=== PATIENT | female | born 1960 | race Caucasian/White ===

== ENCOUNTER → 2021-09-24 16:00 | Outpatient (CLI) | payer MEDICAID, SELFPAY ==
[2021-09-24 15:17] LABS: Basophils # 0.1 K/mm3 (0-0.2); Basophils % 0.7 % (0.1-2.0); Eosinophils # 0.1 K/mm3 (0.0-0.4); Eosinophils % 1.5 % (0.1-12.0); Hematocrit 45.8 % (37.0-47.0); Hemoglobin 14.6 g/dL (12.2-16.2); Lymphocytes # 2.6 K/mm3 (0.7-4.5); Mean Corpuscular HGB Conc 31.9 g/dL (31.8-35.4); Mean Corpuscular Hemoglobin 30.2 pg (27.0-31.2); Mean Corpuscular Volume 94.5 fl (81-99); Mean Platelet Volume 8.4 fl (7.4-10.4); Monocytes # 0.3 K/mm3 (0.1-1.0); Monocytes % 4.4 % (1.7-9.3); Neutrophils # 4.3 K/mm3 (1.8-7.8); Neutrophils % 58.5 % (37.0-80.0); Platelet Count 340 K/mm3 (142-424); Red Blood Count 4.85 M/mm3 (4.20-5.40); Red Cell Distribution Width 13.6 % (11.5-17.5); White Blood Count 7.3 K/mm3 (4.8-10.8)
[2021-09-24 16:22] LABS: Chloride 101 mmol/L (98-107); Potassium 4.2 mmoL/L (3.5-5.1); Sodium 140 mmol/L (136-145)
[2021-09-24 16:24] LABS: Alanine Aminotransferase 15 U/L (12-78); Aspartate Amino Transferase 23 U/L (14-36); Blood Urea Nitrogen 8 mg/dl (7-17); Estimated Glomerular Filt Rate 86 ml/min (>60); GFR (African American) 104 ML/MIN (>60)
[2021-09-24 16:25] LABS: Albumin Level 4.4 g/dl (3.5-5.0); Albumin/Globulin Ratio 1.5 (1.1-1.8); Alkaline Phosphatase 91 U/L (38-126); Anion Gap 10.2 mEq/L (5-15); Bilirubin,Total 0.5 mg/dl (0.2-1.3); Calcium 8.6 mg/dl (8.4-10.2); Carbon Dioxide 33 mmol/L (22.0-30.0); Chol/HDL Ratio 4.3 (1-3.5); Cholesterol 210 mg/dl (140-200); Glucose 89 mg/dl (74-100); HDL Cholesterol 49 mg/dl (40-60); Total Protein,Serum 7.4 g/dl (6.3-8.2); Triglycerides 226 mg/dl (30-150); VLDL Cholesterol 45 mg/dL (0-40)
[2021-09-24 16:36] LABS: Direct LDL Cholesterol 126.89 mg/dL (100-129)
[2021-09-24 16:44] LABS: T4 (Thyroxine) 9.9 ug/dl (5.53-11.0)
== END ==
PROVIDERS: Visit Provider Emergency Medicine
DX: I10 Essential (primary) hypertension (principal); E78.5 Hyperlipidemia, unspecified; E55.9 Vitamin D deficiency, unspecified; Z79.899 Other long term (current) drug therapy
CPT/HCPCS: 80053; 80061; 82306; 84436; 84443; 85025

== ENCOUNTER → 2022-03-22 15:36 | Outpatient (CLI) | payer MEDICAID, SELFPAY ==
[2022-03-22 16:56] LABS: Free T4 (Free Thyroxine) 1.37 ng/dl (0.78-2.19)
[2022-03-22 17:35] LABS: Thyroid Stimulating Hormone 3.14 uIU/mL (0.465-4.68)
== END ==
PROVIDERS: PCP Emergency Medicine; Visit Provider Emergency Medicine
DX: E03.9 Hypothyroidism, unspecified (principal)
CPT/HCPCS: 84439; 84443

== ENCOUNTER 2022-07-12 07:10 | Day surgery (SDC) | payer MEDICAID, SELFPAY ==
[2022-07-12] VITALS (9 sets, daily range): BP systolic 118–167; BP diastolic 64–83; PULSE 73–86; RESP 14–20; TEMP 36.4–37; O2SAT 91–98
== END 2022-07-12 09:08 | disposition home or self-care (01) ==
PROVIDERS: PCP Emergency Medicine; Visit Provider Ophthalmology
PROC: (CPT 66984; principal; 2022-07-12 09:00)
DX: H25.811 Combined forms of age-related cataract, right eye (principal); Z79.899 Other long term (current) drug therapy
CPT/HCPCS: 66984; V2632

== ENCOUNTER 2022-07-26 08:48 | Day surgery (SDC) | payer MEDICAID, SELFPAY ==
[2022-07-26] VITALS (8 sets, daily range): BP systolic 116–147; BP diastolic 59–95; PULSE 69–82; RESP 14–18; TEMP 36.1–36.3; O2SAT 90–96; BMI 30.1
== END 2022-07-26 10:10 | disposition home or self-care (01) ==
PROVIDERS: PCP Emergency Medicine; Visit Provider Ophthalmology
PROC: (CPT 66984; principal; 2022-07-26 11:00)
DX: H26.9 Unspecified cataract (principal); Z79.899 Other long term (current) drug therapy
CPT/HCPCS: 66984; V2632

== ENCOUNTER → 2022-08-30 10:00 | Outpatient (CLI) | payer MEDICAID, SELFPAY ==
[2022-08-30 14:57] LABS: Amphetamine/Metha Screen,Urine Negative ng/ml (<1000); Barbiturates Screen,Urine Negative ng/ml (<200)
[2022-08-30 14:58] LABS: Benzodiazepines Screen,Urine Negative ng/ml (<200)
[2022-08-30 14:59] LABS: Cannabinoid Screen,Urine Negative ng/ml (<50); Cocaine Screen,Urine Negative ng/ml (<300)
[2022-08-30 15:00] LABS: Methadone Screen,Urine Negative ng/ml (<300); Opiate Screen,Urine Negative ng/ml (<300)
[2022-08-30 15:01] LABS: Phencyclidine Screen,Urine Negative ng/ml (<25)
== END ==
PROVIDERS: PCP Emergency Medicine; Visit Provider Emergency Medicine
DX: Z79.899 Other long term (current) drug therapy (principal)
CPT/HCPCS: 80305

== ENCOUNTER 2022-11-25 10:48 | Inpatient (IN) | payer MEDICAID, SELFPAY ==
[2022-11-25] VITALS (10 sets, daily range): BP systolic 136–178; BP diastolic 66–101; PULSE 55–90; RESP 17–24; TEMP 36.4–36.7; O2SAT 91–98; BMI 31.3
--- NOTE | 2022-11-25 11:13 | HMH.EDGENADL ---
Discharge Plan Disposition Patient Disposition: Admitted Prescriptions Prescriptions: No Action buprenorphine-naloxone 8-2 mg tablet, sublingual 1 tab SUBLINGUAL DAILY nicotine 21 mg/24 hr patch 24 hour 1 patch transdermal DAILY Qty: 28 2RF budesonide-formoterol [Symbicort] 80-4.5 mcg/actuation HFA aerosol inhaler 1 inh inhalation BID Qty: 10.2 2RF lidocaine 5 % adhesive patch,medicated 1 patch topical DAILY Qty: 30 0RF Rx Instructions: leave on most painful area for up to 12 hrs diclofenac sodium 1 % gel 2 g topical QID Qty: 100 0RF Rx Instructions: apply to single elbow, wrist or hand; for hand includes palm/fingers/back of hand hydroxyzine pamoate 25 mg capsule 25 mg PO TID Qty: 90 2RF gabapentin 600 mg tablet 600 mg PO TID Qty: 90 2RF albuterol sulfate [Ventolin HFA] 90 mcg/actuation HFA aerosol inhaler See Rx Instructions .ROUTE .COMPLEX Qty: 18 1RF Dose Instruction: INHALE TWO PUFFS EVERY 6 HOURS NEEDED SHORTNESS OF BREATH Rx Instructions: INHALE TWO PUFFS EVERY 6 HOURS NEEDED SHORTNESS OF BREATH ipratropium-albuterol 0.5 mg-3 mg(2.5 mg base)/3 mL solution for nebulization See Rx Instructions .ROUTE .COMPLEX Qty: 180 1RF Dose Instruction: USE 3 mL VIA NEBULIZER every 4-6 hours As Needed for shortness of breath or wheezing Rx Instructions: USE 3 mL VIA NEBULIZER every 4-6 hours As Needed for shortness of breath or wheezing Referrals Follow up/Referrals: Momo Galarza MD [Primary Care Provider] - See instructions Clinical Impressions Clinical Impression: Hypoxemia, Bilateral lower extremity edema, Chronic dyspnea Instructions Patient Instructions: DI for Skin Abscess Discharge ED Provider: Deya Castaneda General Adult HPI General Chief complaint: Skin/Abscess/Foreign Body Stated complaint: neck pain, soa, low O2, bilateral feet swelling Time Seen by Provider: 11/25/22 11:14 History of Present Illness HPI narrative: Patient is a 62-year-old female presenting with worsening dyspnea. This has been going on for several months but worsening over the last month no inciting event that she is aware of. No chest pain associated with this no cough fevers or chills. She states she just has increasing orthopnea PND and lower extremity edema. She is followed by Dr. Galarza and states that he has been trying to arrange outpatient oxygen for her has been unable to get that done quickly. She presents to the emergency department because her dyspnea has gotten to the point of activities of daily living. Related Data Home Medications Medication Instructions Recorded Confirmed buprenorphine 8 mg-naloxone 2 mg 1 tab sublingual DAILY drug 09/24/21 11/23/22 sublingual tablet addiction Previous Rx's Medication Instructions Recorded budesonide-formoterol HFA 80 1 inh inhalation BID COPD #10.2 08/30/22 mcg-4.5 mcg/actuation aerosol grams inhaler (Symbicort) nicotine 21 mg/24 hr daily 1 patch transdermal DAILY #28 ea 08/30/22 transdermal patch albuterol sulfate 90 mcg/actuation See Rx Instructions .Route 11/14/22 aerosol inhaler (Ventolin HFA) .COMPLEX #18 grams ipratropium 0.5 mg-albuterol 3 mg See Rx Instructions .Route 11/14/22 (2.5 mg base)/3 mL nebulization .COMPLEX #180 mL soln diclofenac sodium 1 % topical gel 2 g topical QID #100 grams 11/23/22 gabapentin 600 mg tablet 600 mg PO TID #90 tabs 11/23/22 hydroxyzine pamoate 25 mg capsule 25 mg PO TID Anxiety #90 caps 11/23/22 lidocaine 5 % topical patch 1 patch topical DAILY #30 ea 11/23/22 Allergies Allergy/AdvReac Type Severity Reaction Status Date / Time No Known Allergies Allergy Verified 11/23/22 13:33 [facility] Disclaimer: The information contained in this section may have been updated after the patient was seen, as this information can be updated by other users. Medical History Aller
--- NOTE | 2022-11-25 11:15 | PC.NURSE ---
DWIGHT DAUGHERTY at
--- NOTE | 2022-11-25 11:22 | XR_ITS ---
FINAL REPORT CLINICAL HISTORY: dyspnea COMPARISON: None FINDINGS: SINGLE VIEW CHEST The heart size is enlarged. The mediastinum is within normal limits. Mild bibasilar opacities are present, favor atelectasis over pneumonia.. There is no evidence of pneumothorax. The bony thorax is intact. IMPRESSION: Bronchial wall thickening consistent with bronchitis. Mild bibasilar opacities noted, favor atelectasis over pneumonia.. Reviewed, Interpreted and Dictated by Yovani Dey III, MD Transcribed by Alma Forrest Authenticated and [facility]
--- NOTE | 2022-11-25 11:35 | ECG_ITS ---
APPROVED REPORT Exam: Resting ECG HR:73 bpm ECG Measurements Heart Rate 73 AXES GA 151 P 64 QRSd 85 QRS 75 QT 379 T 64 QTc 406 Conclusion SINUS RHYTHM NORMAL ECG UNCONFIRMED REPORT Electronically signed by : Jamison Kraus MD 11/26/2022 07:14:10
--- NOTE | 2022-11-25 11:39 | PC.NURSE ---
rad at BS
[2022-11-25 12:06] LABS: Basophils # 0.1 K/mm3 (0-0.2); Basophils % 0.7 % (0.1-2.0); Chloride 95 mmol/L (98-107); Eosinophils # 0.2 K/mm3 (0.0-0.4); Eosinophils % 3.1 % (0.1-12.0); Hematocrit 44.3 % (37.0-47.0); Hemoglobin 14.5 g/dL (12.2-16.2); Lymphocytes # 2.4 K/mm3 (0.7-4.5); Lymphocytes % 30.7 % (10-50); Mean Corpuscular HGB Conc 32.6 g/dL (31.8-35.4); Mean Corpuscular Hemoglobin 30.3 pg (27.0-31.2); Mean Corpuscular Volume 92.9 fl (81-99); Mean Platelet Volume 7.6 fl (7.4-10.4); Monocytes # 0.4 K/mm3 (0.1-1.0); Monocytes % 4.7 % (1.7-9.3); Neutrophils # 4.7 K/mm3 (1.8-7.8); Neutrophils % 60.8 % (37.0-80.0); Platelet Count 278 K/mm3 (142-424); Potassium 3.8 mmoL/L (3.5-5.1); Red Blood Count 4.77 M/mm3 (4.20-5.40); Red Cell Distribution Width 14.7 % (11.5-17.5); Sodium 140 mmol/L (136-145); White Blood Count 7.8 K/mm3 (4.8-10.8)
[2022-11-25 12:09] LABS: Alanine Aminotransferase 22 U/L (12-78); Albumin Level 4.1 g/dl (3.5-5.0); Albumin/Globulin Ratio 1.2 (1.1-1.8); Alkaline Phosphatase 66 U/L (38-126); Anion Gap 8.8 mEq/L (5-15); Aspartate Amino Transferase 34 U/L (14-36); Bilirubin,Total 0.4 mg/dl (0.2-1.3); Blood Urea Nitrogen 10 mg/dl (7-17); Carbon Dioxide 40 mmol/L (22.0-30.0); Creatinine Clearance Estimated 95 mL/min (50-200); Estimated Glomerular Filt Rate 73 ml/min (>60); GFR (African American) 89 ML/MIN (>60); Globulin 3.3 g/dL (1.3-3.2); Total Protein,Serum 7.4 g/dl (6.3-8.2)
[2022-11-25 12:10] LABS: Glucose 96 mg/dl (74-100)
[2022-11-25 12:20] LABS: NT Pro Brain Natriuretic Pep. 154 pg/mL (0-125)
[2022-11-25 12:23] LABS: Troponin I < 0.01 ng/ml (0.00-0.034)
--- NOTE | 2022-11-25 12:37 | PC.NURSE ---
SaO2 to mid 80s, pt reported to staff when asked about home oxygen. Pt reports does not wear home oxygen, however pt reports she is supposed to wear home O2 but they have not delivered it to her yet. Pt placed on 2L per NC
[2022-11-25 12:49] LABS: D-Dimer 0.75 ug/mL (0.0-0.5)
--- NOTE | 2022-11-25 13:13 | PC.NURSE ---
waiting cotton opener back from hospitalist
[2022-11-25 13:18] LABS: Coronavirus 19, PCR Not Detected (NotDetected); Influenza A, PCR Not Detected (NotDetected); Influenza B, PCR Not Detected (NotDetected)
--- NOTE | 2022-11-25 13:40 | PC.NURSE ---
rounded on pt no complaints at this time, unhooked so pt could go to rest room, tap ellison at bedside
--- NOTE | 2022-11-25 13:44 | PC.NURSE ---
Hospitalist at bedside
--- NOTE | 2022-11-25 13:47 | PC.NURSE ---
care management notified of admission
--- NOTE | 2022-11-25 14:01 | EXP.HP ---
History of Present Illness *Admission Date: 11/25/22 *Reason for visit:: Shortness of breath *History of present illness: 62-year-old female presents emergency department with significantly worsening symptoms of multiple days including shortness of breath, orthopnea, mild lower extremity edema. This has been going on for several months but worsening over the last month no inciting event that she is aware of. Patient has been evaluated outpatient basis for new oxygen requirement, she is requiring 2 L of oxygen nasal cannula in the emergency department. Patient states that she has been having progressive symptoms and dyspnea with exertion. Smokes, drinks pop, denies alcohol or other substances. Denies any fevers, chills, cough. ?She is followed by Dr. Galarza and states that he has been trying to arrange outpatient oxygen for her has been unable to get that done quickly. She presents to the emergency department because her dyspnea has gotten to the point of activities of daily living. Currently medications include Suboxone, gabapentin. She does not have any known history of hypertension, hyperlipidemia, kidney issues or other medical conditions at this time. Patient is currently comfortable in the ER has no concerns or complaints at this [facility] Disclaimer: The information contained in this section may have been updated after the patient was seen, as this information can be updated by other users. Medical History Allergies Anxiety Arthritis Chronic cough COPD (chronic obstructive pulmonary disease) GERD (gastroesophageal reflux disease) History of cataract History of narcotic addiction HTN (hypertension) Surgical History History of cataract surgery S/P bilateral breast lumpectomy S/P carpal tunnel release Family History Mother Diabetes Sister Diabetes Mother Hypertension Sister Hypertension Mother Coronary artery disease Sister Breast cancer Social History Smoking Status: Current every day smoker alcohol intake: never substance use type: former substance user, sedatives and painkillers current occupational status: unemployed Travel in the last 8 weeks: None caffeine: Yes Review of Systems Review of Systems Review of systems:: pertinent systems reviewed and negative unless documented below Constitutional Constitutional: Reports system reviewed and no additional complaints, except as documented and Denies chills *Cardiovascular Cardiovascular: Denies chest pain at rest, Denies chest pain with activity, Denies claudication, Reports dyspnea, Reports dyspnea on exertion, Denies irregular heart rhythm, Denies lightheadedness, Reports orthopnea and Denies palpitations *Respiratory Respiratory: Reports dyspnea and Reports dyspnea on exertion *Gastrointestinal Gastrointestinal: Reports system reviewed and no additional complaints, except as documented Endocrine Endocrine: Denies palpitations Meds Home Medications and Allergies Home Medications Medication Instructions Recorded Confirmed Type buprenorphine 8 mg-naloxone 2 mg 1 tab sublingual DAILY drug 09/24/21 11/23/22 History sublingual tablet addiction budesonide-formoterol HFA 80 1 inh inhalation BID COPD #10.2 08/30/22 11/23/22 Rx mcg-4.5 mcg/actuation aerosol grams inhaler (Symbicort) nicotine 21 mg/24 hr daily 1 patch transdermal DAILY #28 ea 08/30/22 11/23/22 Rx transdermal patch albuterol sulfate 90 mcg/actuation See Rx Instructions .Route 11/14/22 11/23/22 Rx aerosol inhaler (Ventolin HFA) .COMPLEX #18 grams ipratropium 0.5 mg-albuterol 3 mg See Rx Instructions .Route 11/14/22 11/23/22 Rx (2.5 mg base)/3 mL nebulization .COMPLEX #180 mL soln diclofenac sodium 1 % topical gel 2 g topical QID #100 grams 11/01
--- NOTE | 2022-11-25 14:22 | PC.NURSE ---
Report provided to SERGO Dewey. Pt using restroom at this time.
--- NOTE | 2022-11-25 14:23 | HMH.PHAINT1 ---
Pharmacy Intervention Comments: MEDICATION RECONCILIATION COMPLETED ON PATIENT USING EXTERNAL FILL HISTORY FROM PHARMACY AND LIST FROM PCP OFFICE. -VINI HONEYCUTT, RICKYD
[2022-11-25 15:11] LABS: Troponin I < 0.01 ng/ml (0.00-0.034)
--- NOTE | 2022-11-25 15:17 | EXP.CARD.CON ---
History of Present Illness History of Present Illness Consult date: 11/25/22 Requesting physician: Klaudia Sibley Consult reason: shortness of breath Chief complaint: SOB, edema History of present illness: This is a 62-year-old white female who presented to the emergency department with worsening shortness of breath, orthopnea and lower extremity edema for the last several days. She states her symptoms started approximately 3 weeks ago but significantly worsened over the last 3 days. The patient states that she was being worked up for oxygen by her primary care provider but her symptoms continue to worsen and that is why she came to the emergency department. She denies any chest pain or pressure. She denies any fever, chills, nausea, vomiting, diarrhea. The patient states that her symptoms are worse at night when she tries to lay down. She denies any hypertension or hyperlipidemia. She denies any history of IA or coronary artery disease. She does report that her sister had an IA and her mother had an enlarged heart. She states that her shortness of breath is so bad at this point that any exertion even minimal exertion around the home and activities of daily living were becoming too hard for her to complete. She states that her symptoms do improve with rest. [facility] Disclaimer: The information contained in this section may have been updated after the patient was seen, as this information can be updated by other users. Medical History Allergies Anxiety Arthritis Chronic cough COPD (chronic obstructive pulmonary disease) GERD (gastroesophageal reflux disease) History of cataract History of narcotic addiction HTN (hypertension) Surgical History History of cataract surgery S/P bilateral breast lumpectomy S/P carpal tunnel release Family History Mother Diabetes Sister Diabetes Mother Hypertension Sister Hypertension Mother Coronary artery disease Sister Breast cancer Social History Smoking Status: Current every day smoker alcohol intake: never substance use type: former substance user, sedatives and painkillers current occupational status: unemployed Travel in the last 8 weeks: None caffeine: Yes Review of Systems Review of Systems Review of systems:: pertinent systems reviewed and negative unless documented below Constitutional Constitutional: Reports system reviewed and no additional complaints, except as documented and Reports fatigue Eyes Eyes: Reports system reviewed and no additional complaints, except as documented ENT Ears, Nose, Mouth, and Throat: Reports system reviewed and no additional complaints, except as documented *Cardiovascular Cardiovascular: Reports system reviewed and no additional complaints, except as documented, Denies chest pain, Reports dyspnea, Reports dyspnea on exertion, Reports edema and Reports leg edema *Respiratory Respiratory: Reports system reviewed and no additional complaints, except as documented, Reports dyspnea and Reports dyspnea on exertion *Gastrointestinal Gastrointestinal: Reports system reviewed and no additional complaints, except as documented *Genitourinary Genitourinary: Reports system reviewed and no additional complaints, except as documented *Musculoskeletal Musculoskeletal: Reports system reviewed and no additional complaints, except as documented Integumentary/Breasts Skin/Breast: Reports system reviewed and no additional complaints, except as documented *Neurologic Neurologic: Reports system reviewed and no additional complaints, except as documented Psychiatric Psychiatric: Reports system reviewed and no additional complaints, except as documented Endocrine Endocrine: Reports system reviewed and no additional complaints, except as doc
[2022-11-25 15:22] LABS: Hemoglobin A1C 5.6 % (4.0-6.0)
[2022-11-25 15:53] LABS: Thyroid Stimulating Hormone 4.09 uIU/mL (0.465-4.68)
--- NOTE | 2022-11-25 16:14 | PC.NURSE ---
SRNA Note: nurse made aware of high blood pressure at 1600 vitals. Marta Villegas, SRNA
[2022-11-25 16:51] LABS: POC Glucose,Bedside 112 (70-110)
--- NOTE | 2022-11-25 17:44 | PC.NURSE ---
A&OX4. TOLERATING 2LNC WELL. PT UP INDEPENDENTLY IN ROOM. HAS C/O BACK PAIN X1, TYLENOL GIVEN PER AUG. HOME MEDICATIONS REORDERED PER PT REQUEST. MEASURING OUTPUT. NO OTHER C/O NOTED THUS FAR. VSS. +2 PITTING EDEMA NOTED TO BLE.
[2022-11-25 18:50] LABS: Troponin I < 0.01 ng/ml (0.00-0.034)
[2022-11-26] VITALS (11 sets, daily range): BP systolic 120–142; BP diastolic 63–77; PULSE 50–66; RESP 16–19; TEMP 36.4–36.7; O2SAT 90–96; BMI 31.4
--- NOTE | 2022-11-26 03:20 | PC.NURSE ---
Patient requesting Diclofenac ointment/cream which per MAR states it is her own medication. Patient states the only medication she brought with her was her ALbuterol inhaler. Patient took PRN meds Zofran, Tylenol & Hydroxyzine. Has resting most of the night in recliner. noted. LCTA, continues to have 2+pitting edema in BLE. No s/s of acute distress
[2022-11-26 09:18] LABS: Basophils % 0.5 % (0.1-2.0); Chloride 91 mmol/L (98-107); Eosinophils # 0.2 K/mm3 (0.0-0.4); Eosinophils % 2.1 % (0.1-12.0); Hematocrit 50.7 % (37.0-47.0); Hemoglobin 15.5 g/dL (12.2-16.2); Lymphocytes % 26.5 % (10-50); Mean Corpuscular HGB Conc 30.7 g/dL (31.8-35.4); Mean Corpuscular Hemoglobin 29.3 pg (27.0-31.2); Mean Corpuscular Volume 95.6 fl (81-99); Mean Platelet Volume 7.8 fl (7.4-10.4); Monocytes # 0.4 K/mm3 (0.1-1.0); Monocytes % 5.9 % (1.7-9.3); Neutrophils # 4.8 K/mm3 (1.8-7.8); Neutrophils % 64.9 % (37.0-80.0); Platelet Count 284 K/mm3 (142-424); Potassium 3.9 mmoL/L (3.5-5.1); Red Cell Distribution Width 14.6 % (11.5-17.5); Sodium 140 mmol/L (136-145); White Blood Count 7.4 K/mm3 (4.8-10.8)
[2022-11-26 09:20] LABS: Blood Urea Nitrogen 13 mg/dl (7-17); Creatinine Clearance Estimated 76 mL/min (50-200); Estimated Glomerular Filt Rate 57 ml/min (>60); GFR (African American) 68 ML/MIN (>60)
[2022-11-26 09:21] LABS: Alanine Aminotransferase 21 U/L (12-78); Albumin Level 4.1 g/dl (3.5-5.0); Albumin/Globulin Ratio 1.2 (1.1-1.8); Alkaline Phosphatase 64 U/L (38-126); Aspartate Amino Transferase 28 U/L (14-36); Bilirubin,Total 0.4 mg/dl (0.2-1.3); Cholesterol 142 mg/dl (140-200); Globulin 3.5 g/dL (1.3-3.2); Phosphorous 4.3 mg/dl (2.5-4.5); Total Protein,Serum 7.6 g/dl (6.3-8.2); Triglycerides 177 mg/dl (30-150); VLDL Cholesterol 35 mg/dL (0-40)
[2022-11-26 09:22] LABS: Chol/HDL Ratio 3.3 (1-3.5); Glucose 103 mg/dl (74-100); HDL Cholesterol 43 mg/dl (40-60); Magnesium 1.8 mg/dl (1.6-2.3)
[2022-11-26 09:29] LABS: Anion Gap 11.9 mEq/L (5-15); Carbon Dioxide 41 mmol/L (22.0-30.0)
[2022-11-26 09:32] LABS: Direct LDL Cholesterol 81.25 mg/dL (100-129)
--- NOTE | 2022-11-26 09:40 | EXP.ACUTE.PN ---
Subjective *Date: 11/26/22 *Time: 09:40 Interval history: feeling better, diuresing, not back to baseline yet Medical Exam Vital signs and Labs for Last 24 Hours: Vital Signs Temp Pulse Pulse Resp BP BP Pulse Ox 11/26/22 07:19 97.9 F 62 18 142/77 H 94 L 11/26/22 04:00 60 11/26/22 04:00 98.1 F 56 L 17 130/68 96 11/25/22 20:00 93 L 11/26/22 00:00 50 L 11/25/22 23:59 98.1 F 55 L 17 136/72 93 L 11/25/22 20:00 60 11/25/22 20:00 97.5 F L 57 L 18 136/74 94 L 11/25/22 16:00 90 11/25/22 14:41 90 11/25/22 16:00 98.1 F 70 20 157/88 H 96 11/25/22 14:43 97.8 F 89 22 151/89 H 95 11/25/22 14:26 97.7 F 80 24 168/101 H 11/25/22 13:00 80 24 168/101 H 98 11/25/22 12:30 68 18 152/80 H 96 11/25/22 11:00 80 153/66 H 91 L 11/25/22 10:50 97.7 F 86 20 178/82 H 93 L Intake and Output 11/25/22 11/26/22 11/26/22 23:59 07:59 15:59 Intake Total 240 / 240 240 / 240 Output Total 1200 / 1200 Balance -960 / -960 240 / 240 Intake: Intake, Oral Amount 240 / 240 240 / 240 Output: Output, Urine Amount 1200 / 1200 Other: Number of Unmeasured Voids 2 Weight 80.286 kg Patient Weight 11/26/22 23:59 Weight 80.286 kg Laboratory Results - last 24 hr 11/25/22 11:50: WBC 7.8, RBC 4.77, Hgb 14.5, Hct 44.3, MCV 92.9, MCH 30.3, MCHC 32.6, RDW 14.7, Plt Count 278, MPV 7.6, Neut % (Auto) 60.8, Lymph % (Auto) 30.7, [place] % (Auto) 4.7, Eos % (Auto) 3.1, Baso % (Auto) 0.7, Neut # (Auto) 4.7, Lymph # (Auto) 2.4, [place] # (Auto) 0.4, Eos # (Auto) 0.2, Baso # (Auto) 0.1 11/25/22 11:50: Sodium 140, Potassium 3.8, Chloride 95 L, Carbon Dioxide 40 H, Anion Gap 8.8, BUN 10, Creatinine 0.80, Estimated Creat Clear 95, Estimated GFR 73, Est GFR ( Amer) 89, Glucose 96, Calcium 9.0, Total Bilirubin 0.4, AST 34, ALT 22, Alkaline Phosphatase 66, Troponin I < 0.01, Total Protein 7.4, Albumin 4.1, Globulin 3.3 H, Albumin/Globulin Ratio 1.2, TSH 4.10 11/25/22 11:50: D-Dimer 0.75 H 11/25/22 11:50: NT-Pro-B Natriuret Pep 154 H 11/25/22 11:50: Hemoglobin A1c 5.6 11/25/22 11:50: TSH 4.09 11/25/22 13:13: SARS-CoV-2 (PCR) Not detected, Influenza A Untype (PCR) Not detected, Influenza Type B (PCR) Not detected 11/25/22 14:40: Troponin I < 0.01 11/25/22 16:44: POC Glucose 112 H 11/25/22 18:05: Troponin I < 0.01 11/26/22 09:00: WBC 7.4, RBC 5.30, Hgb 15.5, Hct 50.7 H, MCV 95.6, MCH 29.3, MCHC 30.7 L, RDW 14.6, Plt Count 284, MPV 7.8, Neut % (Auto) 64.9, Lymph % (Auto) 26.5, [place] % (Auto) 5.9, Eos % (Auto) 2.1, Baso % (Auto) 0.5, Neut # (Auto) 4.8, Lymph # (Auto) 2.0, [place] # (Auto) 0.4, Eos # (Auto) 0.2, Baso # (Auto) 0.0 11/26/22 09:00: Sodium 140, Potassium 3.9, Chloride 91 L, Carbon Dioxide 41 H*, Anion Gap 11.9, BUN 13 D, Creatinine 1.00 D, Estimated Creat Clear 76, Estimated GFR 57 L, Est GFR ( Amer) 68 D, Glucose 103 H, Calcium 9.0, Phosphorus 4.3, Magnesium 1.8, Total Bilirubin 0.4, AST 28, ALT 21, Alkaline Phosphatase 64, Total Protein 7.6, Albumin 4.1, Globulin 3.5 H, Albumin/Globulin Ratio 1.2, Triglycerides 177 H, Cholesterol 142, LDL Cholesterol Direct 81.25 L, VLDL Cholesterol 35, HDL Cholesterol 43, Cholesterol/HDL Ratio 3.3 I & O for Labs for Last 24 Hours: Intake & Output 11/23/22 11/24/22 11/25/22 11/26/22 23:59 23:59 23:59 23:59 Intake Total 240 / 240 240 / 240 Output Total 1200 / 1200 Balance -960 / -960 240 / 240 Weight 80.286 kg 80.286 kg Constitutional: Present no acute distress Respiratory: Present wheezes and normal respiratory effort Cardiac: Present Reg Rate and Rhythm GI: Present normal bowel sounds; Absent tenderness Extremities: Present normal inspection and full ROM Skin: Present intact; Absent erythema Neuro: Present Grossly Intact and moves all extremities Assessment and Plan *Assessment and plan (1) Chronic dyspnea: Status: Acute Category: Medical C
--- NOTE | 2022-11-26 18:44 | PC.NURSE ---
NO ACUTE CHANGES FROPM PREVIOUS SHIFT. PT STATES SHES FELT BETTER TODAY. CB WITHIN REACH. NO CONCERNS AT THIS TIME.
--- NOTE | 2022-11-26 22:30 | PC.NURSE ---
RESTING IN BED AT THIS TIME. NO FURTHER C/O NAUSEA. 02 2LNC IN USE. NO C/O PAIN, SOA, OR DISCOMFORT. REFUSES FINGER STICKS.
[2022-11-27] VITALS (7 sets, daily range): BP systolic 124–141; BP diastolic 60–75; PULSE 50–61; RESP 17–20; TEMP 36.7–36.8; O2SAT 81–98; BMI 31.9
--- NOTE | 2022-11-27 10:58 | EXP.DC.SUM ---
General Admission date:: 11/25/22 Discharge date: 11/27/22 HPI HPI HPI: 62-year-old female presents emergency department with significantly worsening symptoms of multiple days including shortness of breath, orthopnea, mild lower extremity edema. This has been going on for several months but worsening over the last month no inciting event that she is aware of. Patient has been evaluated outpatient basis for new oxygen requirement, she is requiring 2 L of oxygen nasal cannula in the emergency department. Patient states that she has been having progressive symptoms and dyspnea with exertion. Smokes, drinks pop, denies alcohol or other substances. Denies any fevers, chills, cough. ?She is followed by Dr. Galarza and states that he has been trying to arrange outpatient oxygen for her has been unable to get that done quickly. She presents to the emergency department because her dyspnea has gotten to the point of activities of daily living. Currently medications include Suboxone, gabapentin. She does not have any known history of hypertension, hyperlipidemia, kidney issues or other medical conditions at this time. Patient is currently comfortable in the ER has no concerns or complaints at this Hospital Course Hospital Course Hospital Course: Patient was admitted for CHF, she was given IV diuretics with improvement of her symptoms. No infectious symptoms. Good urinary output advised and counseled on appropriate diet and reduce soda intake. TTE ordered, results pending. Follow-up with cardiology and primary care physician next week for further management of cardiac meds and echo results. Patient noted to have hypoxemia O2 <88 % on room air at rest, will send home with oxygen. Consistent with prior evaluation outpatient, she has oxygen ordered from other provider but has not received it yet. we will send her home with some here Exam Data for Last 24 hours Vital signs and Labs for Last 24 Hours: Temp Pulse Resp BP Pulse Ox FiO2 98.0 F 60 20 124/63 81 L 28 11/27/22 07:28 11/27/22 08:00 11/27/22 07:28 11/27/22 07:28 11/27/22 10:45 11/26/22 18:40 I & O for Last 24 hours: Intake & Output 11/24/22 11/25/22 11/26/22 11/27/22 23:59 23:59 23:59 23:59 Intake Total 240 / 240 1080 / 1080 360 / 360 Output Total 1200 / 1200 100 / 100 300 / 300 Balance -960 / -960 980 / 980 60 / 60 Weight 80.286 kg 80.286 kg 81.737 kg Narrative: EKG is sinus rhythm with a rate of 73 bpm. Constitutional Constitutional: no acute distress and obese *Routine HEENT Exam Head: Present normocephalic and atraumatic ENT: Present mucous membranes moist *Routine Neck Exam Neck: Present supple, full ROM and normal carotid upstroke; Absent JVD, carotid bruit or lymphadenopathy *Routine Respiratory Exam Respiratory: Present CTA bilaterally, normal respiratory effort, able to speak in complete sentences and symmetric chest movement *Routine Cardiovascular Exam Cardiovascular: Present RRR, Normal S1 and Normal S2; Absent murmur or gallop *Routine Abdominal Exam Abdominal: Present soft and normoactive bowel sounds; Absent tenderness, distended or organomegaly *Routine Extremities Exam Extremities: Present edema (1+ bilateral lower extremity edema), full ROM, pulses intact and normal capillary refill; Absent cyanosis or clubbing *Routine Skin Exam Skin: Present intact and warm; Absent erythema *Routine Neurological Exam Neurological: Present alert, oriented X3 and CN II-XII intact; Absent sensory deficit or motor deficit Routine Psychiatric Exam Psychiatric: Present normal affect DS: Diagnosis Discharge Diagnosis (1) Chronic dyspnea: Status: Acute Code(s): R06.09 - Other forms of dyspnea (2) Bilateral lower extremity edema: Status: Acute Code(s): R60.0 - Localized edema (3) Tobacco use: Status: Acute Code(s): Z72.0 - Tobacco use (4) COPD (chronic obstructive pulmonary disease): Status: Acute
--- NOTE | 2022-11-27 11:12 | PC.NURSE ---
RA SAT 81%.
--- NOTE | 2022-11-27 12:49 | PC.NURSE ---
STILL WAITING ON PTS O2
--- NOTE | 2022-11-29 13:44 | CARE MANAGER ---
Called and spoke with patient to discuss recent discharge. Patient stated that she is doing well, but wasn't able to [employer] her medications prescribed at discharge until today. Patient had no questions or concerns at time of call.
== END 2022-11-27 14:20 | disposition home or self-care (01) | DRG 291 ==
LOC: ER 13:05 → 2ND 13:56
PROVIDERS: Admitting Provider Student in an Organized Health Care Education/Training Program; Emergency Provider Student in an Organized Health Care Education/Training Program; PCP Emergency Medicine; Visit Provider Student in an Organized Health Care Education/Training Program
DX: I11.0 Hypertensive heart disease with heart failure (principal); I50.31 Acute diastolic (congestive) heart failure; J44.9 Chronic obstructive pulmonary disease, unspecified; Z72.0 Tobacco use; M19.90 Unspecified osteoarthritis, unspecified site; K21.9 Gastro-esophageal reflux disease without esophagitis; F41.9 Anxiety disorder, unspecified; Z71.6 Tobacco abuse counseling
CPT/HCPCS: 36415; 71045; 80053; 80061; 82962; 83036; 83735; 83880; 84100; 84443; 84484; 85025; 85378; 87636; 93005; 93306; 94640; 99285; C9803; G0378; J0574; J2405; U0003; U0005

== ENCOUNTER → 2022-12-27 11:41 | Outpatient (CLI) | payer MEDICAID, SELFPAY ==
--- NOTE | 2022-12-27 | CA_ITS ---
APPROVED REPORT Exam: Pharmacologic Technologist: aMia Valladares, Ht: 5 ft 3 in Wt: 179 lbs BSA: 1.84 m2 HR: 49 bpm BP: 146/72 mmHg Rhythm: Sinus bradycardia Medical History Medical History: HTN Medications: Gabapentin,,,,, Duoneb,,,,, Nicotine,,,,, ADVAIR,,,,, BisOPROLOL Fumarate,,,,, SpirOnALACTONE,,,,, Hydroxyzine pamoate,,,,, Furosemide,,,,, Ventolin HFA,,,,, BuPRenorHIN-NALOXONE,,,,, Allergies: No known drug allergies Cardiac Risk Factors: HTN, FHX of CAD, Smoking Stress Test Details Test: LEXISCAN HR Resting HR: 54 bpm Max Heart Rate (APMHR): 160 bpm Max HR Achieved: 76 bpm Target HR (85% APMHR): 136 bpm % of APMHR: 48 Recovery HR: 60 bpm BP Resting BP: 146/72 mmHg Max BP: 163/70 mmHg Recovery BP: 147.0/74.0 mmHg ECG Resting ECG: Sinus bradycardia, right axis deviation Stress ECG: No change Arrhythmia: PACs, PVCs Recovery ECG: No change Recovery Arrhythmia: None Clinical Exercise duration: 04:01 min Highest Stage Achieved: Exercise capacity: n/a METs Stress ECG Conclusion PT HAD CHEST TIGHTNESS AND DYSPNEA PACS, PVCS NO SIGNIFICANT ST CHANGES WITH PHARMACOLOGIC STRESS TESTING CONCLUSION PACS AND PVCS WERE NOTED FOLLOWING ADMINISTRATION OF LEXISCAN NO ST CHANGES WERE PRESENT WITH PHARMACOLOGIC STRESS TESTING MYOVIEW IMAGES ARE REPORTED SEPARATELY Test Summary REST 02:00 . . 54 . 146/ 72 . . Stage 1 . . . . . . . Myoview Injected Stage 1 01:00 . . 68 . . . . Stage 2 01:00 . . 73 . 148/ 82 . . Stage 3 01:00 . . 70 . 142/ 70 . . Stage 4 01:00 . . 68 . 159/ 75 . . Stage 4 01:01 . . 68 . 159/ 75 . Stop exercise at 04:01 RECOVERY 01:00 . . 65 . . . . RECOVERY 02:00 . . 63 . 162/ 87 . . RECOVERY 03:00 . . 64 . 162/ 87 . . RECOVERY 04:00 . . 61 . 163/ 70 . . RECOVERY 04:51 . . 61 . 147/ 74 . . Electronically signed by : Daija Jaime, 12/29/2022 00:09:56
--- NOTE | 2022-12-27 11:43 | NM_ITS ---
APPROVED REPORT Exam: Nuclear Stress Test Indication: OBESITY, HTN, HYPERLIPIDEMIA, TOB USE, SOB Patient Location: Outpatient Stress Tech: Maia Valladares [place] Tech:Kayy Hathaway LUCINA RT (R)(N)(M) Ht: 5 ft 3 in Wt: 177 lbs Bra Size: C HR: 49 bpm BP: 146/72 mmHg BSA: 1.84 m2 TID: 1.19 BMI: 31.3 History: OBESITY, HTN, HYPERLIPIDEMIA, TOB USE, SOB PT COULD NOT LAY ON STOMACH FOR PRONE IMAGES Procedure: Patient received 0.4 mg of intravenous Lexiscan, resting heart rate 49 bpm, resting blood pressure 146/72 mmHg, with Lexiscan maximum heart rate achieved was 71 bpm which is % of the maximum predicted heart rate and blood pressure was 148/82 mmHg. PT C/O CHEST TIGHTNESS Cardiac Stress and Resting SPECT Images: Cardiac Stress and Resting SPECT images were obtained using technetium 99m Myoview 310. mCi stress and 10.38 mCi at rest. The patient could not lie on her abdomen, thereby prone stress images could not be obtained. This may affect the diagnostic interpretation of the study findings. Resting and stress imaging in supine position demonstrate large sized, moderate, partially reversible perfusion defect in the anterior LV wall from the base extending distally towards the anterior apical region. There is also a medium sized, moderate, partially reversible perfusion defect in the mid to distal inferior LV wall. Gated imaging demonstrates normal global LV systolic function. There is mild hypokinesis in the mid to distal anterior and inferior LV mak, including the LV apical region. LVEF is calculated at 64%. Conclusion: The patient could not lie on her abdomen, thereby prone stress images could not be obtained. This may affect the diagnostic interpretation of the study findings. Large sized, moderate, partially reversible perfusion defect in the anterior LV wall from the base extending distally towards the anterior apical region. There is also a medium sized, moderate, partially reversible perfusion defect in the mid to distal inferior LV wall. Gated imaging demonstrates normal global LV systolic function. There is mild hypokinesis in the mid to distal anterior and inferior LV mak, including the LV apical region. LVEF is calculated at 64%. Electronically signed by : Daija Jaime, 12/29/2022 00:15:38
== END ==
PROVIDERS: PCP Emergency Medicine; Visit Provider Nurse Practitioner Family
DX: R06.02 Shortness of breath (principal); R60.0 Localized edema; I10 Essential (primary) hypertension; E78.5 Hyperlipidemia, unspecified; E66.9 Obesity, unspecified; Z68.31 Body mass index [BMI] 31.0-31.9, adult; Z72.0 Tobacco use
CPT/HCPCS: 78452; 93017; A9502; J2785

== ENCOUNTER 2023-01-25 06:54 | Day surgery (SDC) | payer MEDICAID, SELFPAY ==
[2023-01-25] VITALS (16 sets, daily range): BP systolic 96–185; BP diastolic 59–98; PULSE 49–73; RESP 16–20; O2SAT 91–100; BMI 32.8
--- NOTE | 2023-01-25 07:06 | IR_ITS ---
APPROVED REPORT Patient Location: Outpatient PROCEDURES Left heart catheterization Left ventriculogram Selective coronary angiogram Intravascular lithotripsy to the mid LAD Drug-eluting stent deployment to the proximal LAD and mid LAD in a noncontiguous fashion INDICATION Abnormal Myoview anterior ischemia, Coronary artery disease with extensive mid LAD calcification Informed consent was obtained prior to the procedure. COMPLICATIONS None Estimated Blood Loss: Less than 10 mls TECHNIQUE One percent lidocaine used to anesthetize the right anterior aspect of the wrist. The right radial artery was accessed via the Seldinger technique. A 6 Emir[place] sheath was placed in the right radial artery. 150 mg magnesium sulfate, 800 mcg of nitroglycerin, 1mg Lidocaine and 5000 U Heparin were given through the arterial sheath. The papa catheter was also used to perform left heart catheterization, left ventriculogram and selective coronary angiogram. At the end the diagnostic angiogram therapeutic Was administered giving a therapeutic ACT and the guide catheter was placed in left main artery followed by Choice PT extra-support wire down the LAD. A 3 mm x 15 mm Pulteney frontier stent was deployed at 20 jo reducing the stenosis to 30%. A 3.5 x 8 mm noncompliant balloon was then advanced to the nonreduced lesion and deployed at 20 and then 24 jo. This failed to reduce the stenosis/calcification. At this point a 3.5 x 12 mm shockwave balloon was advanced and a total of 80 pulsations were delivered which did improve the stenotic area. A 3.5 x 6 mm noncompliant balloon was then advanced and deployed at 20 and then 24 jo which further reduce the stenosis producing less than 10% stenosis. Following this a 3.5 x 22 mm Pulteney frontier stent was then deployed in the proximal LAD at 20 jo reducing the stenosis to 0%. 800 mcg of intracoronary nitroglycerin was administered. Excellent angiographic results were obtained with JOSE-3 flow being present before and after the procedure. Within the procedure the apparatus was removed the sheath was removed and hemostasis was achieved using TR banding patient was transferred to the postop holding in stable condition ANGIOGRAPHIC RESULTS The left main artery Normal The left anterior descending artery Has a proximal 60 to 70% stenosis with a mid vessel calcified 70% stenosis. The first diagonal artery is moderate and has mid vessel 30% stenosis. The second diagonal artery is larger and widely patent. The circumflex artery Nondominant and has 20% mid vessel stenosis with 20 to 30% stenosis in the proximal first substantive obtuse marginal artery. The terminal obtuse marginal artery has proximal 30 to 40% calcified stenosis The right coronary artery Is a dominant vessel and has proximal 20 to 30% stenosis with a proximal 60 to 70% calcified stenosis followed by an additional 40% stenosis. Distally just proximal to the bifurcation of the PDA the distal right coronary artery has a 40 to 50% stenosis. Large posterior descending artery has a proximal eccentric 50 to 60% stenosis The BOND ventriculogram reveals Normal 65% The left ventricular end-diastolic pressure 20 to 25 mmHg IMPRESSION Severe proximal and mid LAD as described above Successful stenting of the proximal LAD severe stenosis reduced to 0% with 1 drug-eluting stent with moderate jailing of a 2 mm first diagonal artery still experiencing JOSE-3 flow in both vessels Successful intravascular lithotripsy and drug-eluting stenting of the mid LAD severe disease reduced to less than 10% as described above Moderate disease in the circumflex artery as described above Moderate to severe disease in the proximal right coronary artery with moderate distal disease Normal ejection fraction Elevated LVEDP
[2023-01-25 07:42] LABS: Basophils # 0.1 K/mm3 (0-0.2); Basophils % 0.6 % (0.1-2.0); Eosinophils # 0.2 K/mm3 (0.0-0.4); Eosinophils % 2.8 % (0.1-12.0); Hematocrit 47.3 % (37.0-47.0); Hemoglobin 14.9 g/dL (12.2-16.2); Lymphocytes % 36.3 % (10-50); Mean Corpuscular HGB Conc 31.5 g/dL (31.8-35.4); Mean Corpuscular Hemoglobin 30.1 pg (27.0-31.2); Mean Corpuscular Volume 95.7 fl (81-99); Mean Platelet Volume 7.6 fl (7.4-10.4); Monocytes # 0.4 K/mm3 (0.1-1.0); Monocytes % 4.7 % (1.7-9.3); Neutrophils # 4.5 K/mm3 (1.8-7.8); Neutrophils % 55.6 % (37.0-80.0); Platelet Count 234 K/mm3 (142-424); Red Blood Count 4.94 M/mm3 (4.20-5.40); Red Cell Distribution Width 13.7 % (11.5-17.5); White Blood Count 8.1 K/mm3 (4.8-10.8)
[2023-01-25 07:51] LABS: Anion Gap 9.1 mEq/L (5-15); Blood Urea Nitrogen 13 mg/dl (7-17); Calcium 9.2 mg/dl (8.4-10.2); Carbon Dioxide 39 mmol/L (22.0-30.0); Chloride 98 mmol/L (98-107); Creatinine Clearance Estimated 79 mL/min (50-200); Estimated Glomerular Filt Rate 57 ml/min (>60); GFR (African American) 68 ML/MIN (>60); Glucose 103 mg/dl (74-100); Potassium 4.1 mmoL/L (3.5-5.1); Sodium 142 mmol/L (136-145)
[2023-01-25 09:40] LABS: CATHL Activated Clotting Time > 400 SEC (74-125)
--- NOTE | 2023-01-25 11:36 | SUR.PHASEII ---
pt ambulated to the bathroom independently. pt reports being SOB and anxious on her return. pt stated she wears 2L NC O2 at home normally. pt sats are 95% at this time. pt placed on 2L for comfort at this time and reports relief.
--- NOTE | 2023-01-25 13:15 | SUR.PHASEII ---
pt continues to report SOB despite being placed on O2. pt reports she has anxiety but this feels different. MD notified and pt educated on the side effects of brilinta and was switched over to plavix to be sent home on.
--- NOTE | 2023-01-25 13:58 | SUR.PHASEII ---
pharmacy at bedside for consultation
--- NOTE | 2023-01-25 14:09 | HMH.PHACL ---
[facility] System Specialist Discharge Med Varnish Thinner: Mariella Cummings has received discharge medication counseling on the following medications: -ASPIRIN (BLOOD THINNER, DAILY, BLEED/BRUISE RISK, BLEED LOCATION AND APPEARANCE, BUMP HEAD/BLEEDING = GO TO ER) -PLAVIX (BLOOD THINNER, DAILY, BLEED/BRUISE RISK, BLEED LOCATION AND APPEARANCE, BUMP HEAD/BLEEDING = GO TO ER, SHORTNESS OF BREATH POSSIBLE) -ATORVASTATIN (FOR CHOLESTEROL, TAKE AT BEDTIME, MUSCLE PAIN/WEAKNESS POSSIBLE AND IF THIS OCCURS TALK WITH MD) -BISOPROLOL (ON PREVIOUSLY, NO QUESTIONS) -NO JULIETA/ARB PER CARDIOLOGY. PATIENT VERBALIZED NO QUESTIONS AT THIS TIME.
== END 2023-01-25 15:11 | disposition home or self-care (01) ==
PROVIDERS: PCP Emergency Medicine; Visit Provider Internal Medicine
DX: I25.118 Atherosclerotic heart disease of native coronary artery with other forms of angina pectoris (principal); I25.84 Coronary atherosclerosis due to calcified coronary lesion; I77.1 Stricture of artery; F17.210 Nicotine dependence, cigarettes, uncomplicated; Z79.899 Other long term (current) drug therapy; J44.9 Chronic obstructive pulmonary disease, unspecified
CPT/HCPCS: 80048; 85025; 85347; 92928; 93458; 99152; 99153; C1725; C1761; C1769; C1876; C9600; J1644; Q9967

== ENCOUNTER 2023-03-05 18:38 | Emergency (ER) | payer MEDICAID, SELFPAY ==
[2023-03-05] VITALS (7 sets, daily range): BP systolic 122–157; BP diastolic 67–87; PULSE 62–83; RESP 11–14; TEMP 36.8; O2SAT 95–97; BMI 31.8
--- NOTE | 2023-03-05 18:57 | XR_ITS ---
PROCEDURE INFORMATION: Exam: XR Chest Exam date and time: 03/05/2023 6:58 PM Age: 62 years old Clinical indication: Chest wall pain; Additional info: Chest pain TECHNIQUE: Imaging protocol: Radiologic exam of the chest. Views: 1 view. COMPARISON: CR XR CHEST PORTABLE 11/25/2022 11:37 AM FINDINGS: Lungs: Unremarkable. No consolidation. Pleural spaces: Unremarkable. No pleural effusion. No pneumothorax. Heart/Mediastinum: Mild cardiac prominence. Tortuosity of the thoracic aorta. Bones/joints: Unremarkable. IMPRESSION: 1. No acute pulmonary findings. 2. Mild cardiac prominence.
--- NOTE | 2023-03-05 19:00 | ECG_ITS ---
APPROVED REPORT Exam: Resting ECG HR:64 bpm ECG Measurements Heart Rate 64 AXES TN 161 P 70 QRSd 86 QRS 89 QT 405 T 79 QTc 414 Conclusion SINUS RHYTHM NORMAL ECG UNCONFIRMED REPORT Electronically signed by : Jamison Kraus MD 03/06/2023 15:50:51
[2023-03-05 19:06] LABS: Basophils # 0.1 K/mm3 (0-0.2); Basophils % 0.7 % (0.1-2.0); Eosinophils # 0.2 K/mm3 (0.0-0.4); Eosinophils % 2.4 % (0.1-12.0); Hematocrit 44.6 % (37.0-47.0); Hemoglobin 14.5 g/dL (12.2-16.2); Lymphocytes % 24.9 % (10-50); Mean Corpuscular HGB Conc 32.6 g/dL (31.8-35.4); Mean Corpuscular Hemoglobin 30.3 pg (27.0-31.2); Mean Corpuscular Volume 92.9 fl (81-99); Mean Platelet Volume 7.5 fl (7.4-10.4); Monocytes # 0.4 K/mm3 (0.1-1.0); Monocytes % 4.7 % (1.7-9.3); Neutrophils # 5.3 K/mm3 (1.8-7.8); Neutrophils % 67.3 % (37.0-80.0); Platelet Count 231 K/mm3 (142-424); Red Cell Distribution Width 13.1 % (11.5-17.5); White Blood Count 7.9 K/mm3 (4.8-10.8)
--- NOTE | 2023-03-05 19:15 | HMH.EDGENADL ---
Discharge Plan Disposition Patient Disposition: Home, Self-Care Prescriptions Prescriptions: New doxycycline hyclate 100 mg capsule 100 mg PO BID 10 Days Qty: 20 0RF benzonatate 100 mg capsule 100 mg PO TID PRN (Reason: cough) 5 Days Qty: 20 0RF albuterol sulfate 90 mcg/actuation HFA aerosol inhaler 4 inh inhalation Q4H PRN (Reason: shortness of breath or wheezing) Qty: 8.5 0RF Rx Instructions: 4 puffs every 4 hours for 48 hours then as needed for shortness of breath or wheezing following No Action lidocaine 5 % adhesive patch,medicated 1 patch topical DAILY Qty: 30 0RF Rx Instructions: leave on most painful area for up to 12 hrs diclofenac sodium 1 % gel 2 g topical QID Qty: 100 0RF Rx Instructions: apply to single elbow, wrist or hand; for hand includes palm/fingers/back of hand gabapentin 800 mg tablet 800 mg PO TID Qty: 90 1RF fluticasone propion-salmeterol 250-50 mcg/dose blister with device 1 inh inhalation Q12H spironolactone [Aldactone] 25 mg tablet 25 mg PO DAILY Qty: 90 3RF buprenorphine-naloxone 8-2 mg tablet, sublingual 1 tab SUBLINGUAL DAILY ipratropium-albuterol 0.5 mg-3 mg(2.5 mg base)/3 mL solution for nebulization 3 ml inhalation Q4HP PRN (Reason: Shortness Of Breath) nicotine 21 mg/24 hr patch 24 hour 1 patch transdermal DAILY hydroxyzine pamoate 25 mg capsule 25 mg PO TIDP PRN (Reason: Anxiety) furosemide 40 mg tablet 40 mg PO DAILY bisoprolol fumarate 10 mg tablet 10 mg PO DAILY albuterol sulfate [Ventolin HFA] 90 mcg/actuation HFA aerosol inhaler See Rx Instructions .ROUTE .COMPLEX Rx Instructions: INHALE TWO PUFFS EVERY 6 HOURS NEEDED SHORTNESS OF BREATH atorvastatin [Lipitor] 40 mg Tablet 40 mg PO HS Qty: 30 3RF aspirin 81 mg Tablet,Chewable 81 mg PO DAILY Qty: 30 3RF clopidogrel [Plavix] 75 mg Tablet 75 mg PO DAILY 30 Days Qty: 30 3RF Referrals Follow up/Referrals: Momo Galarza MD [Primary Care Provider] - See instructions Activity Restrictions/Add. Instructions Additional Instructions/Restrictions: Return with worsening shortness of breath or other concerns. Clinical Impressions Clinical Impression: Acute exacerbation of chronic obstructive pulmonary disease Discharge ED Provider: Deya Castaneda General Adult HPI General Chief complaint: Shortness of Breath/Dyspnea Stated complaint: chest pain Time Seen by Provider: 03/05/23 19:10 Mode of Arrival: Wheelchair Source of Information: Patient Limitations: No Limitations Description of Symptoms (Recalled from ER Triage Doc. by RN): 62 yo F presents to ED with c/o shortness of air, and chest pressure. pt reports she has felt bad for the past week with generalized fatigue and shortness of air. pt does have copd history and does have O2 as needed. pt reports that she has been having to use her O2 at home. upon arrival pt 86% on RA. History of Present Illness HPI narrative: Patient is a 62-year-old female with a history of COPD presents today with increasing cough shortness of breath and wheezing over the last week. States that she does not constantly wear oxygen but has oxygen at home as she is wearing it persistently over the last 3 days. She states she forgot that she had breathing treatments and has not used them at home at all. She denies any fevers or chills. She does have a history of coronary disease but denies any history of heart failure or any lower extremity swelling PND or orthopnea. No history of DVT or PE that she is aware of. No chest pain. Related Data Home Medications Medication Instructions Recorded Confirmed buprenorphine 8 mg-naloxone 2 mg 1 tab sublingual DAILY drug 09/24/21 02/21/23 sublingual tablet addiction hydroxyzine pamoate 25 mg capsule 25 mg PO TIDP PRN Anxiety 11/25/22 02/21/23 ipratropium 0.5 mg-albuterol 3 mg 3 ml inhalation Q4HP PRN Shortness 11/25/22 02/21/23
[2023-03-05 19:16] LABS: Chloride 93 mmol/L (98-107); Sodium 140 mmol/L (136-145)
[2023-03-05 19:19] LABS: Blood Urea Nitrogen 12 mg/dl (7-17); Calcium 9.2 mg/dl (8.4-10.2); Carbon Dioxide 39 mmol/L (22.0-30.0); Creatinine Clearance Estimated 96 mL/min (50-200); Estimated Glomerular Filt Rate 73 ml/min (>60); GFR (African American) 89 ML/MIN (>60); Glucose 139 mg/dl (74-100)
[2023-03-05 19:33] LABS: Troponin I < 0.01 ng/ml (0.00-0.034)
[2023-03-05 19:59] LABS: Coronavirus 19, PCR Not Detected (NotDetected); Influenza A, PCR Not Detected (NotDetected); Influenza B, PCR Not Detected (NotDetected)
--- NOTE | 2023-03-05 20:10 | PC.NURSE ---
in room talking with patient at this time.
== END 2023-03-05 20:22 | disposition home or self-care (01) ==
PROVIDERS: Emergency Provider Student in an Organized Health Care Education/Training Program; PCP Emergency Medicine
DX: J44.1 Chronic obstructive pulmonary disease with (acute) exacerbation (principal); R07.9 Chest pain, unspecified; F41.9 Anxiety disorder, unspecified; K21.9 Gastro-esophageal reflux disease without esophagitis; I10 Essential (primary) hypertension; F17.200 Nicotine dependence, unspecified, uncomplicated
CPT/HCPCS: 71045; 80048; 84484; 85025; 87636; 93005; 96361; 96374; 99285; J3475

== ENCOUNTER → 2023-04-19 19:40 | Outpatient (CLI) | payer MEDICAID, SELFPAY ==
[2023-04-19 18:24] LABS: Barbiturates Screen,Urine Negative ng/ml (<200)
[2023-04-19 18:25] LABS: Amphetamine/Metha Screen,Urine Negative ng/ml (<1000); Cannabinoid Screen,Urine Negative ng/ml (<50)
[2023-04-19 18:26] LABS: Benzodiazepines Screen,Urine Negative ng/ml (<200)
[2023-04-19 18:31] LABS: Methadone Screen,Urine Negative ng/ml (<300)
[2023-04-19 18:32] LABS: Cocaine Screen,Urine Negative ng/ml (<300)
[2023-04-19 18:34] LABS: Phencyclidine Screen,Urine Negative ng/ml (<25)
[2023-04-19 18:35] LABS: Opiate Screen,Urine Negative ng/ml (<300)
== END ==
PROVIDERS: PCP Emergency Medicine; Visit Provider Emergency Medicine
DX: Z79.899 Other long term (current) drug therapy (principal)
CPT/HCPCS: 80305

== ENCOUNTER 2023-07-12 18:05 | Outpatient (CLI) | payer MEDICAID, SELFPAY ==
[2023-07-12 19:44] LABS: Amphetamine/Metha Screen,Urine Negative ng/ml (<1000); Barbiturates Screen,Urine Negative ng/ml (<200); Benzodiazepines Screen,Urine Negative ng/ml (<200); Cannabinoid Screen,Urine Negative ng/ml (<50); Cocaine Screen,Urine Negative ng/ml (<300); Methadone Screen,Urine Negative ng/ml (<300); Opiate Screen,Urine Negative ng/ml (<300); Phencyclidine Screen,Urine Negative ng/ml (<25)
[2023-07-19 10:34] LABS: Gabapentin,Urine 591.4 ug/mL (.)
== END 2023-07-12 23:59 ==
LOC: LAB.DROPOF 18:05
PROVIDERS: PCP Nurse Practitioner Family; Visit Provider Nurse Practitioner Family
DX: Z79.899 Other long term (current) drug therapy (principal); F41.9 Anxiety disorder, unspecified; M54.16 Radiculopathy, lumbar region
CPT/HCPCS: 80307

== ENCOUNTER → 2023-07-27 14:40 | Outpatient (CLI) | payer MEDICAID, SELFPAY | LOC: SL 14:41 | PROVIDERS: PCP Nurse Practitioner Family; Visit Provider Nurse Practitioner Family | DX: G47.36 Sleep related hypoventilation in conditions classified elsewhere (principal) | CPT/HCPCS: G0399 ==

== ENCOUNTER 2023-07-28 16:17 | Emergency (ER) | payer MEDICAID, SELFPAY ==
[2023-07-28] VITALS (7 sets, daily range): BP systolic 113–148; BP diastolic 66–87; PULSE 54–87; RESP 20; TEMP 36.8; O2SAT 92–99; BMI 31.8
--- NOTE | 2023-07-28 16:20 | ECG_ITS ---
APPROVED REPORT Exam: Resting ECG HR:54 bpm ECG Measurements Heart Rate 54 AXES OR 135 P 40 QRSd 81 QRS 87 QT 415 T 61 QTc 401 Conclusion SINUS BRADYCARDIA BORDERLINE ECG UNCONFIRMED REPORT Electronically signed by : Jamison Kraus MD 07/29/2023 13:38:09
--- NOTE | 2023-07-28 16:40 | PC.NURSE ---
called for a dinner tray
--- NOTE | 2023-07-28 16:46 | XR_ITS ---
PROCEDURE INFORMATION: Exam: XR Chest Exam date and time: 07/28/2023 4:47 PM Age: 62 years old Clinical indication: Pain; Chest pressure; Additional info: Chest tightness, SOA TECHNIQUE: Imaging protocol: Radiologic exam of the chest. Views: 1 view. COMPARISON: CR XR CHEST PORTABLE 03/05/2023 6:58 PM FINDINGS: Lungs: No evidence of acute pulmonary disease or infiltrates Pleural spaces: No large effusion or pneumothorax. Heart/Mediastinum: Stable cardiac and mediastinal contours. Vasculature: There are calcifications of the aortic arch. Bones/joints: No evidence of acute osseous abnormalities within the visualized portions of the thoracic spine and ribs. Osseous structures appear appropriate for patient age. IMPRESSION: No dense parenchymal consolidation, pleural effusion, or pneumothorax.
--- NOTE | 2023-07-28 16:50 | [facility].EDCP ---
Discharge Plan Disposition Patient Disposition: Home, Self-Care Condition: Good Prescriptions Prescriptions: New doxycycline hyclate 100 mg tablet 100 mg PO BID 7 Days Qty: 14 0RF prednisone 50 mg tablet 50 mg PO DAILY 5 Days Qty: 5 0RF No Action lidocaine 5 % adhesive patch,medicated 1 patch topical DAILY Qty: 30 0RF Rx Instructions: leave on most painful area for up to 12 hrs diclofenac sodium 1 % gel 2 g topical QID Qty: 100 0RF Rx Instructions: apply to single elbow, wrist or hand; for hand includes palm/fingers/back of hand buprenorphine-naloxone 8-2 mg tablet, sublingual 1 tab SUBLINGUAL DAILY gabapentin 800 mg tablet 800 mg PO TID Qty: 90 2RF hydroxyzine pamoate 25 mg capsule See Rx Instructions .ROUTE .COMPLEX Qty: 90 2RF Dose Instruction: take 1 capsule orally three times a day for Anxiety Rx Instructions: take 1 capsule orally three times a day for Anxiety clopidogrel [Plavix] 75 mg tablet 75 mg PO DAILY 30 Days Qty: 90 1RF aspirin 81 mg tablet,chewable 81 mg PO DAILY Qty: 90 1RF albuterol sulfate [Ventolin HFA] 90 mcg/actuation HFA aerosol inhaler See Rx Instructions .ROUTE .COMPLEX Qty: 8.5 1RF Rx Instructions: INHALE TWO PUFFS EVERY 6 HOURS NEEDED SHORTNESS OF BREATH ipratropium-albuterol 0.5 mg-3 mg(2.5 mg base)/3 mL solution for nebulization 3 ml inhalation Q4HP PRN (Reason: Shortness Of Breath) furosemide 40 mg tablet 40 mg PO DAILY bisoprolol fumarate 10 mg tablet 10 mg PO DAILY atorvastatin [Lipitor] 40 mg Tablet 40 mg PO HS Qty: 30 3RF albuterol sulfate 90 mcg/actuation HFA aerosol inhaler 4 inh inhalation Q4H PRN (Reason: shortness of breath or wheezing) Qty: 8.5 0RF Rx Instructions: 4 puffs every 4 hours for 48 hours then as needed for shortness of breath or wheezing following Referrals Follow up/Referrals: Casimiro Diaz APRN [Primary Care Provider] - See instructions Activity Restrictions/Add. Instructions Additional Instructions/Restrictions: You were evaluated in the emergency department today. Please pepper picker your prescription at the pharmacy and take them as prescribed. Keep your legs elevated to reduce swelling. Follow-up with your primary care provider over the next 3 days. Return to the emergency department for new or worsening symptoms Clinical Impressions Clinical Impression: Acute exacerbation of chronic obstructive pulmonary disease Instructions Patient Instructions: DI for Chronic Obstructive Pulmonary Disease, DI for Dependent Edema Discharge ED Provider: Thea Duron HPI General Chief Complaint: Chest Pain Stated Complaint: chest pain Time Seen by Provider: 07/28/23 16:18 Mode of Arrival: Wheelchair Source of Information: Patient Limitations: No Limitations Description of Symptoms (Recalled from ER Triage Doc. by RN): Patient states she started having chest pressure across her chest and has been coughing since yesterday. Patient denies other symptoms states pressure does not radiate and is worse with movement. History of Present Illness HPI narrative: This patient is a 62-year-old female with a history of COPD on 2 L nasal cannula, chronic lower extremity edema, obesity, hypertension, hypothyroidism, hyperlipidemia, CAD status post tenting, and NAY presenting to the emergency department for evaluation with concern for chest tightness. She states that for the last few days, she has been feeling bad. She states the chest pressure and cough started yesterday. She is feeling much worse today, so she decided to come in. No fevers, chills, abdominal pain, nausea, vomiting, changes bowel movements, or other concerns noted. She does note that her chronic leg swelling is worse than usual. Notes compliance with her Lasix but does not prop her feet up. Related Data Home Medications Medication Instructions Recorded Confirmed buprenorphine 8 mg-naloxone 2 mg 1 tab sublingual DAILY drug 09/24/21 07/12/23 sublingual tablet addiction ipratropium 0.5 mg-albuterol 3 mg 3 ml inhalation Q4HP PRN Shortness 11/25/22 07/12/23 (2.5 mg base)/3 mL nebulization Of Breath soln bisoprolol fumarate 10 mg tablet 10 mg PO DAILY htn 01/25/23 07/12/23 furosemide 40 mg tablet 40 mg PO DAILY Fluid 01/25/23 07/12/23 Previous Rx's Medication Instructions Recorded atorvastatin 40 mg tablet (Lipitor) 40 mg PO HS #30 tabs 01/25/23 diclofenac sodium 1 % topical gel 2 g topical QID #100 grams 02/21/23 lidocaine 5 % topical patch 1 patch topical DAILY Pain #30 ea 02/21/23 albuterol sulfate 90 mcg/actuation 4 inh inhalation Q4H PRN shortness 03/05/23 aerosol inhaler of breath or wheezing #8.5 grams hydroxyzine pamoate 25 mg capsule See Rx Instructions .Route 03/23/23 .COMPLEX #90 caps aspirin 81 mg chewable tablet 81 mg PO DAILY #90 tabs 04/24/23 clopidogrel 75 mg tablet (Plavix) 75 mg PO DAILY 30 days #90 tabs 04/24/23 albuterol sulfate 90 mcg/actuation See Rx Instructions .Route 06/14/23 aerosol inhaler (Ventolin HFA) .COMPLEX Copd #8.5 grams gabapentin 800 mg tablet 800 mg PO TID #90 tabs 07/12/23 doxycycline hyclate 100 mg tablet 100 mg PO BID 7 days #14 tabs 07/28/23 prednisone 50 mg tablet 50 mg PO DAILY 5 days #5 tabs 07/28/23 Allergies Allergy/AdvReac Type Severity Reaction Status Date / Time No Known Allergies Allergy Verified 07/12/23 14:02 [facility] Disclaimer: The information contained in this section may have been updated after the patient was seen, as this information can be updated by other users. Medical History Abnormal result of cardiovascular function study Allergies Anxiety Arthritis Chronic cough COPD (chronic obstructive pulmonary disease) GERD (gastroesophageal reflux disease) History of cataract History of narcotic addiction HTN (hypertension) Surgical History History of cataract surgery S/P bilateral breast lumpectomy S/P carpal tunnel release Family History Mother Diabetes Sister Diabetes Mother Hypertension Sister Hypertension Mother Coronary artery disease Sister Breast cancer Social History Smoking Status: Current every day smoker alcohol intake: never substance use type: former substance user, sedatives and painkillers current occupational status: unemployed Travel in the last 8 weeks: Inside the [place] caffeine: Yes ROS Obtained: Yes All systems reviewed & no additional complaints except as documented Physical Exam General General appearance: alert, in no apparent distress and obese Head Head exam: atraumatic and normocephalic Eye Eye exam: Present normal appearance, PERRL and EOMI ENT ENT exam: Present normal exam, normal oropharynx, mucous membranes moist and normal external ear exam Neck Neck exam: Present normal inspection, full ROM and trachea midline; Absent tenderness Chest Chest inspection: Present normal inspection and symmetric chest wall rise; Absent tenderness Respiratory Respiratory exam: Present wheezes and other (Mild wheezing and decreased breath sounds bilaterally with no increased work of breathing. Oxygen saturation greater than 95% on her home 2 L nasal cannula.); Absent respiratory distress, stridor, accessory muscle use or prolonged expiratory phase Cardiovascular Cardiovascular exam: Present regular rate and normal rhythm Abdominal Exam Abdominal exam: Present soft; Absent distention, tenderness or guarding Extremities Exam Extremities exam: Present full ROM, normal capillary refill and edema (1+ bilateral lower extremity edema); Absent tenderness Back Exam Back exam: Present normal inspection and full ROM; Absent tenderness Neurological Exam Neurological exam: Present alert, oriented X3, CN II-XII intact and normal gait; Absent motor sensory deficit Psychiatric Psychiatric exam: Present normal affect and normal mood Skin Skin exam: Present warm and dry HEART Score HEART Score HEART Score assessment performed?: Yes History (anamnesis): Slightly suspicious ECG: Normal Age: 45-65 years Risk factors: Atherosclerosis history Troponin: </= normal limit HEART Score: 3 Critical Care Critical Care Time Critical Care Time: No Medical Decision Making Medical Records Medical records reviewed: Yes I reviewed the patient's medical records. Allan Inquiry Pt receiving controlled substance: No Vital Signs Vital Signs: 07/28/23 16:18 07/28/23 16:35 07/28/23 16:25 Temperature 98.2 F Temperature Source Oral Pulse Rate 54 L 54 L Pulse Rate [Right] 54 L Respiratory Rate 20 Blood Pressure 138/71 Blood Pressure [Right Arm] 138/71 Blood Pressure Mean 87 Blood Pressure Mean [Right Arm] 93 Blood Pressure Source Blood Pressure Source [Right Arm] Automatic Cuff Blood Pressure Position 02 Sat by Pulse Oximetry 99 97 Oxygen Delivery Method Nasal Cannula Oxygen Flow Rate (LPM) 2 07/28/23 17:01 07/28/23 17:31 07/28/23 18:00 Temperature Temperature Source Pulse Rate 62 69 74 Pulse Rate [Right] Respiratory Rate 20 Blood Pressure 113/87 147/71 H 148/66 H Blood Pressure [Right Arm] Blood Pressure Mean 93 96 93 Blood Pressure Mean [Right Arm] Blood Pressure Source Blood Pressure Source [Right Arm] Blood Pressure Position 02 Sat by Pulse Oximetry 96 94 L 92 L Oxygen Delivery Method Oxygen Flow Rate (LPM) 07/28/23 18:19 Temperature 98.2 F Temperature Source Oral Pulse Rate 87 Pulse Rate [Right] Respiratory Rate 20 Blood Pressure 148/66 H Blood Pressure [Right Arm] Blood Pressure Mean Blood Pressure Mean [Right Arm] Blood Pressure Source Automatic Cuff Blood Pressure Source [Right Arm] Blood Pressure Position Sitting 02 Sat by Pulse Oximetry Oxygen Delivery Method Room Air Oxygen Flow Rate (LPM) Lab Data Labs: Lab Results 07/28/23 16:24: WBC 5.4, RBC 4.42, Hgb 13.5, Hct 39.7, MCV 90.0, MCH 30.6, MCHC 34.0, RDW 12.7, Plt Count 195, MPV 7.4, Neut % (Auto) 40.7, Lymph % (Auto) 45.6, [place] % (Auto) 6.6, Eos % (Auto) 5.6, Baso % (Auto) 1.5, Neut # (Auto) 2.2, Lymph # (Auto) 2.5, [place] # (Auto) 0.4, Eos # (Auto) 0.3, Baso # (Auto) 0.1, Sodium 141, Potassium 3.3 L, Chloride 90 L, Carbon Dioxide 41 H*, Anion Gap 13.3, BUN 7, Creatinine 0.80, Estimated Creat Clear 96, Estimated GFR 73, Est GFR ( Amer) 89, Glucose 83, Calcium 9.4, Total Bilirubin 0.6, AST 38 H, ALT 23, Alkaline Phosphatase 74, Troponin I < 0.01, NT-Pro-B Natriuret Pep 139 H, Total Protein 8.7 H, Albumin 4.7, Globulin 4.0 H, Albumin/Globulin Ratio 1.2, TSH 3.73, Thyroxine (T4) 10.2 07/28/23 17:15: SARS-CoV-2 (PCR) Not detected, Influenza A Untype (PCR) Not detected, Influenza Type B (PCR) Not detected 07/28/23 16:24 07/28/23 16:24 Response Orders (Tests/Meds): ED MEDICATIONS Discontinued Medications Generic Name Dose Route Start Last Admin Trade Name Freq PRN Reason Stop Dose Admin Albuterol/Ipratropium 3 ml 07/28/23 16:46 07/28/23 17:06 Ipratropium/Albuterol 3 Ml Neb IH 07/28/23 16:47 3 ml ONCE ONE Administration Doxycycline Hyclate 100 mg 07/28/23 18:08 07/28/23 18:12 Doxycycline Hycl 100 Mg Tablet PO 07/28/23 18:09 100 mg ONCE ONE Administration Potassium Chloride 40 meq 07/28/23 17:49 07/28/23 17:55 Potassium Chloride 20meq Tab PO 07/28/23 17:50 40 meq ONCE ONE Administration Prednisone 40 mg 07/28/23 18:07 07/28/23 18:13 Prednisone 20mg Tab PO 07/28/23 18:08 40 mg ONCE ONE Administration ORDERS Category Date Time Status XR chest portable Stat Exams 07/28/23 16:46 Completed Brain Natriuretic Peptide Stat Lab 07/28/23 16:24 Completed CBC w/Auto Diff [Complete Blood Count Auto Diff] Stat Lab 07/28/23 16:24 Completed Comprehensive Metabolic Panel Stat Lab 07/28/23 16:24 Completed Rapid PCR Covid and Flu A/B Stat Lab 07/28/23 17:15 Completed T4 (Thyroxine) Stat Lab 07/28/23 16:24 Completed Thyroid Stimulating Hormone Stat Lab 07/28/23 16:24 Completed Troponin I Stat Lab 07/28/23 16:24 Completed ECG Data Tracing #1: Attestation: I reviewed this ECG and interpreted as documented below: ECG Narrative: Sinus bradycardia with a ventricular rate of [address] changes concerning for ischemia. Normal axis and intervals. ECG initial impression date: 07/28/23 ECG initial impression time: 16:22 MDM Narrative Medical Decision Narrative: In summary, this patient is a 62-year-old female presenting to the Emergency Department for evaluation of increasing cough and feeling unwell. Differential diagnoses considered include but are not limited to pneumonia, COPD exacerbation, respiratory failure. Ruling out the most morbid conditions drove assessment. It should be noted patient's history includes COPD, NAY, hypertension, hyperlipidemia, CAD, and obesity which may or may not be at goal therapy. This complicates all aspects of care by increasing patient's risk for morbidity. On exam, the patient is nontoxic-appearing. She has no increased work of breathing on her home oxygen. She is resting comfortably. Workup included CBC, CMP, troponin, BNP, chest x-ray, and EKG. she was given a DuoNeb for symptomatic improvement of wheezing. I independently interpreted x-ray prior to the radiologist read and noted no acute focal consolidation. Please see their read for final interpretation. Labs were obtained that demonstrated CO2 is chronically elevated.. Initial troponin negative. Given that the patient's symptoms have been ongoing for days now, I do not feel that subsequent troponins are indicated. On reassessment, patient had good improvement after administration of neb. She is resting comfortably. I feel she most likely has a COPD exacerbation given her wheezing and increasing cough. She was given doxycycline and prednisone for this. At this time, feel she is appropriate for discharge. She is given strict return precautions and was discharged in stable condition after all questions were answered..
--- NOTE | 2023-07-28 16:51 | PC.NURSE ---
rad at bedside
[2023-07-28 16:54] LABS: Basophils # 0.1 K/mm3 (0-0.2); Basophils % 1.5 % (0.1-2.0); Eosinophils # 0.3 K/mm3 (0.0-0.4); Eosinophils % 5.6 % (0.1-12.0); Hematocrit 39.7 % (37.0-47.0); Hemoglobin 13.5 g/dL (12.2-16.2); Lymphocytes # 2.5 K/mm3 (0.7-4.5); Lymphocytes % 45.6 % (10-50); Mean Corpuscular Hemoglobin 30.6 pg (27.0-31.2); Mean Platelet Volume 7.4 fl (7.4-10.4); Monocytes # 0.4 K/mm3 (0.1-1.0); Monocytes % 6.6 % (1.7-9.3); Neutrophils # 2.2 K/mm3 (1.8-7.8); Neutrophils % 40.7 % (37.0-80.0); Platelet Count 195 K/mm3 (142-424); Red Blood Count 4.42 M/mm3 (4.20-5.40); Red Cell Distribution Width 12.7 % (11.5-17.5); White Blood Count 5.4 K/mm3 (4.8-10.8)
[2023-07-28 16:57] LABS: Chloride 90 mmol/L (98-107); Potassium 3.3 mmoL/L (3.5-5.1); Sodium 141 mmol/L (136-145)
[2023-07-28 17:00] LABS: Alanine Aminotransferase 23 U/L (12-78); Albumin Level 4.7 g/dl (3.5-5.0); Albumin/Globulin Ratio 1.2 (1.1-1.8); Alkaline Phosphatase 74 U/L (38-126); Aspartate Amino Transferase 38 U/L (14-36); Bilirubin,Total 0.6 mg/dl (0.2-1.3); Blood Urea Nitrogen 7 mg/dl (7-17); Calcium 9.4 mg/dl (8.4-10.2); Creatinine Clearance Estimated 96 mL/min (50-200); Estimated Glomerular Filt Rate 73 ml/min (>60); GFR (African American) 89 ML/MIN (>60); Glucose 83 mg/dl (74-100); Total Protein,Serum 8.7 g/dl (6.3-8.2)
[2023-07-28] MEDS: IPRATROPIUM/ALBUTEROL 3 ML NEB IH (17:06)
[2023-07-28 17:10] LABS: NT Pro Brain Natriuretic Pep. 139 pg/mL (0-125)
[2023-07-28 17:18] LABS: T4 (Thyroxine) 10.2 ug/dl (5.53-11.0)
[2023-07-28 17:20] LABS: Anion Gap 13.3 mEq/L (5-15); Carbon Dioxide 41 mmol/L (22.0-30.0); Troponin I < 0.01 ng/ml (0.00-0.034)
[2023-07-28 17:21] LABS: Coronavirus 19, PCR Not Detected (NotDetected); Influenza A, PCR Not Detected (NotDetected); Influenza B, PCR Not Detected (NotDetected)
[2023-07-28 17:31] LABS: Thyroid Stimulating Hormone 3.73 uIU/mL (0.465-4.68)
[2023-07-28] MEDS: POTASSIUM CHLORIDE 20MEQ TAB 40 MEQ PO (17:55)
[2023-07-28] MEDS: DOXYCYCLINE HYCL 100 MG TABLET PO (18:12)
[2023-07-28] MEDS: predniSONE 20MG TAB 40 MG PO (18:13)
== END 2023-07-28 18:25 | disposition home or self-care (01) ==
PROVIDERS: Emergency Provider Emergency Medicine; PCP Nurse Practitioner Family
DX: J44.1 Chronic obstructive pulmonary disease with (acute) exacerbation (principal); R07.9 Chest pain, unspecified; R05.9 Cough, unspecified; R60.9 Edema, unspecified; I10 Essential (primary) hypertension; E78.5 Hyperlipidemia, unspecified; E03.9 Hypothyroidism, unspecified; I25.10 Atherosclerotic heart disease of native coronary artery without angina pectoris; G47.33 Obstructive sleep apnea (adult) (pediatric); K21.9 Gastro-esophageal reflux disease without esophagitis; F17.200 Nicotine dependence, unspecified, uncomplicated; R00.1 Bradycardia, unspecified
CPT/HCPCS: 71045; 80053; 83880; 84436; 84443; 84484; 85025; 87636; 93005; 99285

== ENCOUNTER 2024-04-23 18:32 | Outpatient (CLI) | payer MEDICAID, SELFPAY ==
[2024-04-23 19:32] LABS: Albumin Level 4.2 g/dl (3.5-5.0); Chloride 96 mmol/L (98-107); Potassium 3.8 mmoL/L (3.5-5.1); Sodium 141 mmol/L (136-145)
[2024-04-23 19:34] LABS: Blood Urea Nitrogen 5 mg/dl (7-17)
[2024-04-23 19:35] LABS: Alanine Aminotransferase 18 U/L (12-78); Alkaline Phosphatase 71 U/L (38-126); Aspartate Amino Transferase 29 U/L (14-36); Bilirubin,Direct 0.2 mg/dl (0.0-0.4); Bilirubin,Indirect 0.3 mg/dL (0.0-0.9); Bilirubin,Total 0.5 mg/dl (0.2-1.3); Bilirubin,Unconjugated 0.3 mg/dL (0.0-1.1); Calcium 9.4 mg/dl (8.4-10.2); Estimated Glomerular Filt Rate 85 ml/min (>60); GFR (African American) 103 ML/MIN (>60); Glucose 111 mg/dl (74-100); Total Protein,Serum 7.2 g/dl (6.3-8.2)
[2024-04-23 19:38] LABS: Basophils % 0.7 % (0.1-2.0); Eosinophils # 0.1 K/mm3 (0.0-0.4); Eosinophils % 2.4 % (0.1-12.0); Hematocrit 36.8 % (37.0-47.0); Hemoglobin 12.2 g/dL (12.2-16.2); Lymphocytes # 1.6 K/mm3 (0.7-4.5); Lymphocytes % 30.3 % (10-50); Mean Corpuscular HGB Conc 33.1 g/dL (31.8-35.4); Mean Corpuscular Hemoglobin 30.1 pg (27.0-31.2); Mean Corpuscular Volume 91.2 fl (81-99); Mean Platelet Volume 8.3 fl (7.4-10.4); Monocytes # 0.3 K/mm3 (0.1-1.0); Monocytes % 5.9 % (1.7-9.3); Neutrophils # 3.2 K/mm3 (1.8-7.8); Neutrophils % 60.7 % (37.0-80.0); Platelet Count 224 K/mm3 (142-424); Red Blood Count 4.03 M/mm3 (4.20-5.40); White Blood Count 5.3 K/mm3 (4.8-10.8)
[2024-04-23 19:43] LABS: Anion Gap 15.8 mEq/L (5-15); Carbon Dioxide 33 mmol/L (22.0-30.0)
[2024-04-23 19:51] LABS: Free T4 (Free Thyroxine) 1.34 ng/dl (0.78-2.19)
[2024-04-23 20:05] LABS: Thyroid Stimulating Hormone 3.31 uIU/mL (0.465-4.68)
== END 2024-04-23 23:59 | disposition home or self-care (01) ==
LOC: LAB.DROPOF 18:33
PROVIDERS: PCP Nurse Practitioner Family; Visit Provider Nurse Practitioner Family
DX: E78.49 Other hyperlipidemia (principal); I25.10 Atherosclerotic heart disease of native coronary artery without angina pectoris; Z72.0 Tobacco use; J44.9 Chronic obstructive pulmonary disease, unspecified; E66.9 Obesity, unspecified; I10 Essential (primary) hypertension; R06.00 Dyspnea, unspecified; K21.9 Gastro-esophageal reflux disease without esophagitis
CPT/HCPCS: 80048; 80076; 84439; 84443; 85025

== ENCOUNTER 2024-04-30 22:27 | Observation (INO) | payer MEDICAID, SELFPAY ==
[2024-04-30 22:45] VITALS: PULSE 52
[2024-04-30 22:49] VITALS: PULSE 50
--- NOTE | 2024-04-30 22:49 | XR_ITS ---
PROCEDURE INFORMATION: Exam: XR Chest Exam date and time: 04/30/2024 11:12 PM Age: 63 years old Clinical indication: Other: Hypoxia TECHNIQUE: Imaging protocol: Radiologic exam of the chest. Views: 1 view. COMPARISON: CR XR CHEST PORTABLE 07/28/2023 4:47 PM FINDINGS: Lungs: Unremarkable. No consolidation. Pleural spaces: Unremarkable. No pleural effusion. No pneumothorax. Heart/Mediastinum: Unremarkable. No cardiomegaly. Vasculature: Unremarkable. Bones/joints: Unremarkable. IMPRESSION: No acute findings.
--- NOTE | 2024-04-30 22:54 | PC.NURSE ---
Patient arrived to floor via stretcher with EMS from [facility] at 22:30.
[2024-04-30 22:55] VITALS: BP 181/73; PULSE 52; RESP 17; TEMP 37.3; O2SAT 96; BMI 33.6
--- NOTE | 2024-04-30 23:19 | ECG_ITS ---
APPROVED REPORT Exam: Resting ECG HR:60 bpm ECG Measurements Heart Rate 60 AXES AK 154 P 18 QRSd 86 QRS 53 QT 409 T 44 QTc 410 Conclusion SINUS RHYTHM WITH OCCASIONAL VENTRICULAR PREMATURE COMPLEXES BORDERLINE ECG UNCONFIRMED REPORT Electronically signed by : Jamison Kraus MD 05/01/2024 08:34:15
[2024-04-30 23:30] LABS: Coronavirus 19, PCR Not Detected (NotDetected); Influenza A, PCR Not Detected (NotDetected); Influenza B, PCR Not Detected (NotDetected)
[2024-04-30 23:39] LABS: VBG Base Excess 10.5 mmol/L (-2.4-2.3); VBG HCO3 35.7 mmol/L (23-30); VBG Oxygen Saturation 90.7 % (50-70); VBG PH 7.38 mmol/L (7.31-7.41); VBG PO2 56.3 mmol/L (28-40); VBG Total CO2 37.6 mmol/L (23-27)
[2024-04-30 23:42] LABS: Lactate Venous 2.1 mmol/L (0.4-2.0); VBG PCO2 62.2 mmol/L (35-51)
[2024-04-30] MEDS: hydrOXYzine pamoate 25MG CAPSULE 25 MG PO (23:45)
[2024-04-30] MEDS: GABAPENTIN 800MG TABLET 800 MG PO (23:45)
--- NOTE | 2024-04-30 23:48 | P.HP_ITS ---
<Statement entered by Akin Brink MD - 05/01/24 22:40> Personal evaluated the patient and agree with the plan of care outlined by our REVENUE INTEGRITY ANALYST. History of Present Illness *Admission Date: 04/30/24 *Reason for visit:: Fatigue *History of present illness: This is a 63-year-old female with a past medical history of HTN, chronic respiratory failure on 2 L nasal cannula, NAY, CAD, HLD, anxiety who presents as a transfer from [facility] for further evaluation of bradycardia. Patient reports extreme fatigue today that she describes as inability to wake up. States this afternoon felt like she could not wake up. States that she could hear her son talking but was unable to arouse. By the time EMS picked her up and brought her to [facility] she was improved. There they were attributing symptoms to some bradycardia with heart rate as low as 47. But otherwise asymptomatic. Patient reports not wearing CPAP or BiPAP at home for NAY because she had problems with her machine. She wears 2 L nasal cannula most of the times at home except for when she is sitting still or taking a shower. Denies any worsening shortness of breath, cough or congestion recently. Workup at the outside hospital unremarkable. Labs within normal limits. Bradycardia noted on EKG with heart rate as low as 47 per ER provider notes. Patient presents here with heart rate in the 60s. Awake alert and oriented, engaging in conversation without distress. Has no complaints at this time. [facility] Disclaimer: The information contained in this section may have been updated after the patient was seen, as this information can be updated by other users. Medical History Tobacco use Dyspnea HTN (hypertension) NAY (obstructive sleep apnea) HLD (hyperlipidemia) CAD (coronary artery disease) Bilateral lower extremity edema Anxiety COPD (chronic obstructive pulmonary disease) Edema Abnormal result of cardiovascular function study Chronic cough Allergies History of cataract History of narcotic addiction Arthritis Anxiety GERD (gastroesophageal reflux disease) COPD (chronic obstructive pulmonary disease) Surgical History History of cataract surgery S/P bilateral breast lumpectomy S/P carpal tunnel release right Family History Mother Diabetes Sister Diabetes Mother Hypertension Sister Hypertension Mother Coronary artery disease Sister Breast cancer Social History (Updated 04/30/24 @ 22:58 by Nolvia Jones RN) Smoking Status: Current every day smoker alcohol intake: never substance use type: former substance user, sedatives and painkillers current occupational status: unemployed Travel in the last 8 weeks: None caffeine: Yes Other Medical History Have you received the Flu Vaccine for this season: No Have you received the Pneumonia Vaccine: No Review of Systems Review of Systems Review of systems:: other Review of systems (narrative): Negative except for HPI Meds Home Medications and Allergies Home Medications ?Medication ?Instructions ?Recorded ?Confirmed ?Type ipratropium 0.5 mg-albuterol 3 mg 3 ml inhalation Q4HP PRN Shortness 11/25/22 04/30/24 History (2.5 mg base)/3 mL nebulization Of Breath soln buprenorphine 8 mg-naloxone 2 mg 1 film sublingual DAILY 09/19/23 04/30/24 Histo ry sublingual film lidocaine 5 % topical patch 1 patch topical DAILY Pain #30 ea 04/23/24 04/30/24 Rx albuterol sulfate 90 mcg/actuation 2 puff inhalation Q4-6H PRN 04/30/24 04/30/24 History aerosol inhaler (Ventolin HFA) Shortness Of Breath Or Wheezing aspirin 81 mg chewable tablet 81 mg PO DAILY #90 tabs 04/30/24 04/30/24 Rx bisoprolol fumarate 10 mg tablet 10 mg PO DAILY 04/30/24 04/30/24 History furosemide 40 mg tablet 40 mg PO DAILY 04/30/24 04/30/24 History gabapentin 800 mg tablet 800 mg PO TID 04/30/24 04/30/24 History hydroxyzine pamoate 25 mg capsule 25 mg PO TID PRN Anxiety 04/30/24 04/30/24 History New Prescriptions to Start Prescriptions: Allergies Allergy/AdvReac Type Severity Reaction Status Date / Time No Known Allergies Allergy Verified 04/23/24 10:23 Exam Data for Last 24 hours Vital signs and Labs for Last 24 Hours: Temp Pulse Resp BP Pulse Ox O2 Del Method O2 Flow Rate 99.1 F 52 L 17 181/73 H 96 Nasal Cannula 2 04/30/24 22:55 04/30/24 22:55 04/30/24 22:55 04/30/24 22:55 04/30/24 22:55 04/30/24 22:55 04/30/24 22:55 Laboratory Results - last 24 hr 04/30/24 23:33: VBG pH 7.38, VBG pCO2 62.2 H, VBG pO2 56.3 H, VBG HCO3 35.7 H, VBG Total CO2 37.6 H, VBG O2 Saturation 90.7 H, VBG Base Excess 10.5 H, VBG Lactic Acid 2.1 H I & O for Last 24 hours: Intake & Output 04/27/24 04/28/24 04/29/24 04/30/24 23:59 23:59 23:59 23:59 Weight 86.137 kg Constitutional Constitutional: no acute distress *Routine HEENT Exam Head: Present normocephalic Eye: Present EOMI and PERRL ENT: Present mucous membranes moist *Routine Neck Exam Neck: Present supple; Absent lymphadenopathy *Routine Respiratory Exam Respiratory: Present CTA bilaterally *Routine Cardiovascular Exam Cardiovascular: Present RRR *Routine Abdominal Exam Abdominal: Present soft and normoactive bowel sounds; Absent tenderness *Routine Rectal Exam Rectal:: deferred *Routine Genitalia Exam Genitalia:: deferred *Routine Extremities Exam Extremities: Absent cyanosis, clubbing or edema *Routine Skin Exam Skin: Present warm; Absent rash *Routine Neurological Exam Neurological: Present alert and oriented X3 Assessment and Plan *Assessment and plan (1) Bradycardia: Status: Acute Category: Medical Code(s): R00.1 - Bradycardia, unspecified (2) Chronic respiratory failure with hypoxia: Status: Acute Category: Medical Code(s): J96.11 - Chronic respiratory failure with hypoxia (3) HLD (hyperlipidemia): Status: Acute Qualifiers: Hyperlipidemia type: other hyperlipidemia Qualified Code(s): E78.49 - Other hyperlipidemia Category: Medical Code(s): E78.5 - Hyperlipidemia, unspecified (4) CAD (coronary artery disease): Status: Acute Qualifiers: Coronary Disease-Associated Artery/Lesion type: [place] artery [place] vs. transplanted heart: [place] heart Associated angina: without angina Qualified Code(s): I25.10 - Atherosclerotic heart disease of [place] coronary artery without angina pectoris Category: Medical Code(s): I25.10 - Atherosclerotic heart disease of [place] coronary artery without angina pectoris (5) NAY (obstructive sleep apnea): Status: Acute Category: Medical Code(s): G47.33 - Obstructive sleep apnea (adult) (pediatric) (6) Obesity: Status: Acute Qualifiers: Obesity type: due to excess calories Obesity classification: adult class 1 (BMI 30 - 34.9) Serious obesity comorbidity presence: without serious comorbidity Body mass index: BMI 34.0-34.9 Qualified Code(s): E66.09 - Other obesity due to excess calories; Z68.34 - Body mass index [BMI] 34.0-34.9, adult Category: Medical Code(s): E66.9 - Obesity, unspecified (7) Hypothyroidism: Status: Acute Qualifiers: Hypothyroidism type: acquired Qualified Code(s): E03.9 - Hypothyroidism, unspecified Category: Medical Code(s): E03.9 - Hypothyroidism, unspecified (8) COPD (chronic obstructive pulmonary disease): Status: Acute Qualifiers: COPD type: unspecified COPD Qualified Code(s): J44.9 - Chronic obstructive pulmonary disease, unspecified Category: Medical Code(s): J44.9 - Chronic obstructive pulmonary disease, unspecified Plan #Bradycardia Appears benign at this time. Heart rate in the 60s currently. EKG with normal sinus rhythm. Follows with Dr. Sibley's office, will consult in a.m. #Fatigue Patient reports extreme fatigue after afternoon nap. Sounds more like fatigue is related to hypercapnia. Given patient had improvement in symptoms once able to be aroused. Baseline VBG ordered while patient is asymptomatic and noted to have CO2 of 62 with compensation and normal pH Repeat VBG if more lethargic over the evening #Chronic respiratory failure with hypoxia and hypercapnia #NAY #Chronic obstructive pulmonary disease VBG with a CO2 of 62, pH of 7.38 Currently oxygenating well her 2 L nasal cannula Does not appear to be in exacerbation at this time. Denies cough, congestion Continue bronchodilators #CAD Stenting to LAD 12/2022 moderate disease noted to circumflex and RCA Continue on aspirin and Plavix #Chronic pain Continue home Suboxone and gabapentin #Obesity Complicates all aspects of care
[2024-05-01] VITALS: PULSE 70
[2024-05-01 02:52] LABS: Troponin I < 0.01 ng/ml (0.00-0.034)
[2024-05-01 03:41] LABS: Reflex Lactic Add Lactic Reflex
[2024-05-01 04:00] VITALS: BP 129/68; PULSE 58; PULSE 60; RESP 17; TEMP 36.6; O2SAT 96; BMI 33.6
[2024-05-01 04:38] LABS: Basophils # 0.1 K/mm3 (0-0.2); Basophils % 1.1 % (0.1-2.0); Eosinophils # 0.2 K/mm3 (0.0-0.4); Eosinophils % 2.9 % (0.1-12.0); Hematocrit 35.6 % (37.0-47.0); Hemoglobin 11.8 g/dL (12.2-16.2); Lymphocytes # 1.7 K/mm3 (0.7-4.5); Lymphocytes % 28.8 % (10-50); Mean Corpuscular HGB Conc 33.3 g/dL (31.8-35.4); Mean Corpuscular Hemoglobin 29.6 pg (27.0-31.2); Mean Platelet Volume 7.3 fl (7.4-10.4); Monocytes # 0.3 K/mm3 (0.1-1.0); Monocytes % 4.2 % (1.7-9.3); Neutrophils # 3.7 K/mm3 (1.8-7.8); Neutrophils % 62.9 % (37.0-80.0); Platelet Count 207 K/mm3 (142-424); Red Cell Distribution Width 13.3 % (11.5-17.5); White Blood Count 5.9 K/mm3 (4.8-10.8)
[2024-05-01 04:42] LABS: Chloride 99 mmol/L (98-107); Sodium 143 mmol/L (136-145)
[2024-05-01 04:43] LABS: Potassium 3.7 mmoL/L (3.5-5.1)
[2024-05-01 04:45] LABS: Blood Urea Nitrogen 5 mg/dl (7-17); Creatinine Clearance Estimated 80 mL/min (50-200); Estimated Glomerular Filt Rate 73 ml/min (>60); GFR (African American) 88 ML/MIN (>60); Lactic Acid Follow Up (RFLX 1) 0.8 mmol/L (0.7-2.1)
[2024-05-01 04:46] LABS: Calcium 8.8 mg/dl (8.4-10.2); Chol/HDL Ratio 3.5 (1-3.5); Cholesterol 187 mg/dl (140-200); Glucose 109 mg/dl (74-100); HDL Cholesterol 54 mg/dl (40-60); Magnesium 1.9 mg/dl (1.6-2.3); Phosphorous 3.7 mg/dl (2.5-4.5); Triglycerides 144 mg/dl (30-150); VLDL Cholesterol 29 mg/dL (0-40)
[2024-05-01 04:52] LABS: Anion Gap 13.7 mEq/L (5-15); Carbon Dioxide 34 mmol/L (22.0-30.0)
[2024-05-01 04:57] LABS: Direct LDL Cholesterol 95.01 mg/dL (100-129)
[2024-05-01 05:02] LABS: Troponin I < 0.01 ng/ml (0.00-0.034)
[2024-05-01 08:00] VITALS: BP 151/77; PULSE 53; PULSE 60; RESP 21; TEMP 36.3; O2SAT 99
--- NOTE | 2024-05-01 09:03 | CA_ITS ---
APPROVED REPORT EXAM: Comprehensive 2D, Doppler, and color-flow Echocardiogram Application Helper: GENO Barboza, RVS Ht: 5 ft 3 in Wt: 190lbs BSA: 1.89 BP: 168/100 mmHg Indications: CAD, Bradycardia, COPD, Smoker, HTN, HLD 2D Dimensions IVSd 0.92 cm F: 0.6-1.0 LVEF (Visual) 58.10 % PWd 0.92 cm F: 0.6 - 1.0 LA Volume 65.20 mL LVDd 5.00 cm F: 3.9 - 5.3 LA Volume Index [id number] mL/m2 (M/F) 16-34 LVDs 3.46 cm F: 2.2 - 3.5 Left Atrium 3.80 cm F: 2.7 - 3.8 M-Mode Dimensions RVDd 3.01 cm (0.9-2.6) LA Diam 3.04 cm (1.9-4.0) LVDd 5.10 cm (3.5-5.7) LVDs 3.13 cm (3.5-5.7) IVSd 1.16 cm (0.6-1.1) PWd 1.08 cm (0.6-1.1) EF (Teich) 68.70% EPSs 0.48 cm FS 38.60% EDV (Teich) 123.80 mL TAPSE 2.52 (<1.7) ESV (Teich) 38.80 mL LV Diastology E Decel Time 250 (160-240 msec) E/A Ratio 1.17 MED A' 9.50 cm/s LAT A' 9.00 cm/s Aortic Valve YENNY Index 0.78 cm2/m2 AoV Peak Darrel. 175.0 (50-130 cm/s) AO Peak GR. 12.30 mmHg AO Mean GR. 6.10 (<5 mmHg) AO VTI 38.8 (18-25 cm) YENNY (VTI) 1.52 (2.5-4.5 cm2) Mitral Valve MV A Velocity 83.0 (40-130 cm/s) E/A Ratio 1.17 Pulmonary Valve PV Peak Velocity 95.0 (50-150 cm/s) Tricuspid Valve TR P. Velocity 210.00 cm/s RAP Estimate 10.00 mmHg RVSP 27.60 mmHg Left Ventricle The left ventricle is normal size. The left ventricular systolic function is normal. The left ventricular ejection fraction is within the normal range. There is normal left ventricular wall thickness. There is normal LV segmental wall motion. The left ventricular diastolic function is normal. LVEF is 60%. Right Ventricle Right ventricle is mildly dilated. The right ventricular systolic function is normal. Atria The left atrium size is normal. The right atrium is mildly dilated. There is no Doppler evidence of interatrial shunt. Aortic Valve The aortic valve opens well. There is no aortic valvular stenosis. No aortic regurgitation is present. Mitral Valve The mitral valve is normal in structure. No evidence of mitral valve stenosis. Trace mitral regurgitation. Tricuspid Valve The tricuspid valve leaflets are thin and pliable. Mild tricuspid regurgitation. RVSP is 15-20 mmHg. Pulmonic Valve The pulmonary valve is normal in structure. Trace pulmonic regurgitation. Great Vessels The aortic root is normal in size. The ascending aorta is not well-visualized. IVC is normal in size and collapses >50% with inspiration. Pericardium There is no pericardial effusion. Other Information Study Quality: Fair Conclusion Normal biventricular systolic function. Mild RA and RV dilation. Mild TR. Electronically signed by : Daija Jaime MD 05/01/2024 12:16:51
[2024-05-01] MEDS: ASPIRIN 81MG CHEWABLE TABLET 81 MG PO (09:15)
[2024-05-01] MEDS: GABAPENTIN 800MG TABLET 800 MG PO ×2 (09:15→12:21)
[2024-05-01] MEDS: BUPRENORPHINE/NALOXONE 8MG/2MG ODT 1 EACH SL (09:15)
--- NOTE | 2024-05-01 10:16 | P.CONPHA_ITS ---
Pharmacy Intervention Comments: Home medication list verified using list from [facility] in [facility] and outpatient pharmacy ls
--- NOTE | 2024-05-01 10:16 | HMH.PHAINT1 ---
Pharmacy Intervention Comments: Home medication list verified using list from [facility] in [facility] and outpatient pharmacy ls
[2024-05-01 11:45] VITALS: BP 122/67; PULSE 53; RESP 17; TEMP 36.8; O2SAT 96
[2024-05-01 12:00] VITALS: PULSE 60
--- NOTE | 2024-05-01 13:58 | P.CONCA_ITS ---
History of Present Illness History of Present Illness Consult date: 05/01/24 Requesting physician: Akin Brink Chief complaint: weakness History of present illness: 63-year-old white female established patient of our office with history of LAD stent December of last year. She also had moderate disease noted in her left circumflex and RCA which were left to medical therapy. She was last seen in the office in January complaining of shortness of breath and lower extremity edema. Testing and medicine changes were ordered but patient never followed up. Patient also has known COPD on 2 L/min and obstructive sleep apnea but is noncompliant with her CPAP. She takes Suboxone and gabapentin. Patient called EMS yesterday due to trouble waking up and feeling drowsy. By EMS arrival and transport she was reportedly back to baseline. She was transported to [facility] emergency room and there were reports of heart rate in the 40s but no evidence of heart block or pauses. [facility] workup was reportedly unremarkable but they transferred her here for evaluation. EKG here sinus sinus rhythm 60 bpm with 1 PAC. 2D echo is normal. She does have hypercarbia noted on labs. On my evaluation she is sitting upright in bed alert and oriented without complaints. [facility] Disclaimer: The information contained in this section may have been updated after the patient was seen, as this information can be updated by other users. Medical History Tobacco use Dyspnea HTN (hypertension) NAY (obstructive sleep apnea) HLD (hyperlipidemia) CAD (coronary artery disease) Bilateral lower extremity edema Anxiety COPD (chronic obstructive pulmonary disease) Edema Abnormal result of cardiovascular function study Chronic cough Allergies History of cataract History of narcotic addiction Arthritis Anxiety GERD (gastroesophageal reflux disease) COPD (chronic obstructive pulmonary disease) Surgical History History of cataract surgery S/P bilateral breast lumpectomy S/P carpal tunnel release Family History Mother Diabetes Sister Diabetes Mother Hypertension Sister Hypertension Mother Coronary artery disease Sister Breast cancer Social History Smoking Status: Current every day smoker alcohol intake: never substance use type: former substance user, sedatives and painkillers current occupational status: unemployed Travel in the last 8 weeks: None caffeine: Yes Review of Systems Constitutional Constitutional: Denies fatigue and Denies weakness Eyes Eyes: Denies loss of vision ENT Ears, Nose, Mouth, and Throat: Denies hearing loss and Denies vertigo *Cardiovascular Cardiovascular: Denies chest pain, Denies dyspnea and Denies syncope *Respiratory Respiratory: Denies cough and Denies dyspnea *Gastrointestinal Gastrointestinal: Denies change in stool character, Denies nausea and Denies vomiting *Musculoskeletal Musculoskeletal: Denies muscle weakness Integumentary/Breasts Skin/Breast: Denies changing lesions *Neurologic Neurologic: Denies loss of vision, Denies syncope, Denies vertigo and Denies weakness Endocrine Endocrine: Denies fatigue Exam Data for Last 24 hours Vital signs and Labs for Last 24 Hours: Temp Pulse Resp BP Pulse Ox O2 Del Method O2 Flow Rate 98.2 F 53 L 17 122/67 96 Nasal Cannula 2 05/01/24 11:45 05/01/24 11:45 05/01/24 11:45 05/01/24 11:45 05/01/24 11:45 05/01/24 13:00 05/01/24 13:00 Laboratory Results - last 24 hr 04/30/24 23:15: SARS-CoV-2 (PCR) Not detected, Influenza A Untype (PCR) Not detected, Influenza Type B (PCR) Not detected 04/30/24 23:33: VBG pH 7.38, VBG pCO2 62.2 H, VBG pO2 56.3 H, VBG HCO3 35.7 H, VBG Total CO2 37.6 H, VBG O2 Saturation 90.7 H, VBG Base Excess 10.5 H, VBG Lactic Acid 2.1 H 05/01/24 02:15: Troponin I < 0.01 05/01/24 04:30: WBC 5.9, RBC 4.00 L, Hgb 11.8 L, Hct 35.6 L, MCV 89.0, MCH 29.6, MCHC 33.3, RDW 13.3, Plt Count 207, MPV 7.3 L, Neut % (Auto) 62.9, Lymph % (Auto) 28.8, [place] % (Auto) 4.2, Eos % (Auto) 2.9, Baso % (Auto) 1.1, Neut # (Auto) 3.7, Lymph # (Auto) 1.7, [place] # (Auto) 0.3, Eos # (Auto) 0.2, Baso # (Auto) 0.1, Sodium 143, Potassium 3.7, Chloride 99, Carbon Dioxide 34 H, Anion Gap 13.7, BUN 5 L, Creatinine 0.80, Estimated Creat Clear 80, Estimated GFR 73, Est GFR ( Amer) 88, Glucose 109 H, Lactate 0.8, Calcium 8.8, Phosphorus 3.7, Magnesium 1.9, Troponin I < 0.01, Triglycerides 144, Cholesterol 187, LDL Cholesterol Direct 95.01 L, VLDL Cholesterol 29, HDL Cholesterol 54, Cholesterol/HDL Ratio 3.5 I & O for Last 24 hours: Intake & Output 04/28/24 04/29/24 04/30/24 05/01/24 23:59 23:59 23:59 23:59 Intake Total 50 / 50 Output Total 0 / 0 0 / 0 Balance 0 / 0 50 / 50 Weight 189 lb 14.4 oz 189 lb 14.4 oz Constitutional Constitutional: no acute distress, obese and cooperative *Routine HEENT Exam Eye: Present PERRL *Routine Respiratory Exam Respiratory: Present CTA bilaterally; Absent accessory muscle use, wheezes or crackles Comments: on O2 nasal canula *Routine Cardiovascular Exam Cardiovascular: Present RRR, Normal S1 and Normal S2; Absent murmur, gallop or rubs *Routine Abdominal Exam Abdominal: Present soft; Absent tenderness *Routine Extremities Exam Extremities: Present pulses intact; Absent cyanosis or edema *Routine Skin Exam Skin: Present intact; Absent erythema or wounds *Routine Neurological Exam Neurological: Present alert and oriented X3 Routine Psychiatric Exam Psychiatric: Present cooperative Meds Home Medications and Allergies Home Medications ?Medication ?Instructions ?Recorded ?Confirmed ?Type albuterol sulfate 90 mcg/actuation 2 puff inhalation Q4-6H PRN 04/30/24 04/30/24 History aerosol inhaler (Ventolin HFA) Shortness Of Breath Or Wheezing aspirin 81 mg chewable tablet 81 mg PO DAILY #90 tabs 04/30/24 04/30/24 Rx bisoprolol fumarate 10 mg tablet 10 mg PO DAILY 04/30/24 04/30/24 History furosemide 40 mg tablet 40 mg PO DAILY 04/30/24 04/30/24 History gabapentin 800 mg tablet 800 mg PO TID 04/30/24 04/30/24 History hydroxyzine pamoate 25 mg capsule 25 mg PO TIDP PRN Anxiety 04/30/24 05/01/24 History buprenorphine 8 mg-naloxone 2 mg 1 tab sublingual DAILY 05/01/24 05/01/24 H istory sublingual tablet fluticasone 100 mcg-salmeterol 50 1 ea inhalation BID 05/01/24 05/01/24 History mcg/dose blistr powdr for inhalation (Advair Diskus) lidocaine 5 % topical patch 1 patch topical DAILY 05/01/24 04/30/24 History New Prescriptions to Start Prescriptions: Allergies Allergy/AdvReac Type Severity Reaction Status Date / Time No Known Allergies Allergy Verified 04/23/24 10:23 Assessment and Plan *Assessment and plan (1) Bradycardia: Status: Acute Category: Medical Code(s): R00.1 - Bradycardia, unspecified (2) COPD (chronic obstructive pulmonary disease): Status: Acute Qualifiers: COPD type: unspecified COPD Qualified Code(s): J44.9 - Chronic obstructive pulmonary disease, unspecified Category: Medical Code(s): J44.9 - Chronic obstructive pulmonary disease, unspecified (3) CAD (coronary artery disease): Status: Acute Qualifiers: Coronary Disease-Associated Artery/Lesion type: [place] artery [place] vs. transplanted heart: [place] heart Associated angina: without angina Qualified Code(s): I25.10 - Atherosclerotic heart disease of [place] coronary artery without angina pectoris Category: Medical Code(s): I25.10 - Atherosclerotic heart disease of [place] coronary artery without angina pectoris Plan Sinus Bradycardia - mild, 50s - EKG here SR 60 bpm. No pauses or heart block. No syncope. - Can reduce Bisoprolol to 5m daily at discharge and apply 2 week monitor - FU in our office 2 weeks CAD, NV s/p LIANA 12/2022 - CCS = 0, No ischemic changes on EKG, normal ECHO - cont ASA, BB, Statin COPD with hypercarbia - per primary service Weakness/Somnolence - resolved by arrival to outside facility - likely resp and medication related - no acute CV issues discernable - home with 2 week monitor
--- NOTE | 2024-05-01 14:25 | EXP.DC.SUM ---
General Admission date:: 04/30/24 HPI HPI HPI: This is a 63-year-old female with a past medical history of HTN, chronic respiratory failure on 2 L nasal cannula, NAY, CAD, HLD, anxiety who presents as a transfer from [facility] for further evaluation of bradycardia. Patient reports extreme fatigue today that she describes as inability to wake up. States this afternoon felt like she could not wake up. States that she could hear her son talking but was unable to arouse. By the time EMS picked her up and brought her to [facility] she was improved. There they were attributing symptoms to some bradycardia with heart rate as low as 47. But otherwise asymptomatic. Patient reports not wearing CPAP or BiPAP at home for NAY because she had problems with her machine. She wears 2 L nasal cannula most of the times at home except for when she is sitting still or taking a shower. Denies any worsening shortness of breath, cough or congestion recently. Workup at the outside hospital unremarkable. Labs within normal limits. Bradycardia noted on EKG with heart rate as low as 47 per ER provider notes. Patient presents here with heart rate in the 60s. Awake alert and oriented, engaging in conversation without distress. Has no complaints at this time. Hospital Course Hospital Course Hospital Course: #Bradycardia #Fatigue #Suspected sleep apnea Appears benign at this time. Heart rate in the 60s currently. EKG with normal sinus rhythm. Transferred from [facility] due to concern of symptomatic bradycardia and patient has been more fatigued recently. Patient states she has been more sleepy and fatigued recently. While patient was drowsy in the morning, she was easily aroused and back to baseline, conversational, ambulating normally, tolerating PO intake. VBG showed compensated hypercapnia. Patient's symptoms seem to be more related to undiagnosed sleep apnea. Cardiology consulted, did not think patient has symptomatic bradycardia. EKG did not show pauses or heart block. TSH normal. Patient discharged with referral to pulmonology clinic for sleep study. Reduced gabapentin dose from 800mg to 400mg TID. Will follow-up with cardiology within 2 weeks. #Chronic respiratory failure with hypoxia and hypercapnia #Chronic obstructive pulmonary disease VBG with a CO2 of 62, pH of 7.38 Currently oxygenating well her 2 L nasal cannula Does not appear to be in exacerbation at this time. Denies cough, congestion Continue bronchodilators #CAD Stenting to LAD 12/2022 moderate disease noted to circumflex and RCA Continue on aspirin and Plavix #Chronic pain Continue home Suboxone and gabapentin #Obesity Complicates all aspects of care Exam Data for Last 24 hours Vital signs and Labs for Last 24 Hours: Temp Pulse Resp BP Pulse Ox O2 Del Method O2 Flow Rate 98.2 F 53 L 17 122/67 96 Nasal Cannula 2 05/01/24 11:45 05/01/24 11:45 05/01/24 11:45 05/01/24 11:45 05/01/24 11:45 05/01/24 13:00 05/01/24 13:00 Laboratory Results - last 24 hr 04/30/24 23:15: SARS-CoV-2 (PCR) Not detected, Influenza A Untype (PCR) Not detected, Influenza Type B (PCR) Not detected 04/30/24 23:33: VBG pH 7.38, VBG pCO2 62.2 H, VBG pO2 56.3 H, VBG HCO3 35.7 H, VBG Total CO2 37.6 H, VBG O2 Saturation 90.7 H, VBG Base Excess 10.5 H, VBG Lactic Acid 2.1 H 05/01/24 02:15: Troponin I < 0.01 05/01/24 04:30: WBC 5.9, RBC 4.00 L, Hgb 11.8 L, Hct 35.6 L, MCV 89.0, MCH 29.6, MCHC 33.3, RDW 13.3, Plt Count 207, MPV 7.3 L, Neut % (Auto) 62.9, Lymph % (Auto) 28.8, [place] % (Auto) 4.2, Eos % (Auto) 2.9, Baso % (Auto) 1.1, Neut # (Auto) 3.7, Lymph # (Auto) 1.7, [place] # (Auto) 0.3, Eos # (Auto) 0.2, Baso # (Auto) 0.1, Sodium 143, Potassium 3.7, Chloride 99, Carbon Dioxide 34 H, Anion Gap 13.7, BUN 5 L, Creatinine 0.80, Estimated Creat Clear 80, Estimated GFR 73, Est GFR ( Amer) 88, Glucose 109 H, Lactate 0.8, Calcium 8.8, Phosphorus 3.7, Magnesium 1.9, Troponin I < 0.01, Triglycerides 144, Cholesterol 187, LDL Cholesterol Direct 95.01 L, VLDL Cholesterol 29, HDL Cholesterol 54, Cholesterol/HDL Ratio 3.5 I & O for Last 24 hours: Intake & Output 04/28/24 04/29/24 04/30/24 05/01/24 23:59 23:59 23:59 23:59 Intake Total 50 / 50 Output Total 0 / 0 0 / 0 Balance 0 / 0 50 / 50 Weight 86.137 kg 86.137 kg Constitutional Constitutional: no acute distress *Routine HEENT Exam Head: Present normocephalic Eye: Present EOMI and PERRL ENT: Present mucous membranes moist *Routine Neck Exam Neck: Present supple; Absent lymphadenopathy *Routine Respiratory Exam Respiratory: Present CTA bilaterally *Routine Cardiovascular Exam Cardiovascular: Present RRR *Routine Abdominal Exam Abdominal: Present soft and normoactive bowel sounds; Absent tenderness *Routine Extremities Exam Extremities: Absent cyanosis, clubbing or edema *Routine Skin Exam Skin: Present warm; Absent rash *Routine Neurological Exam Neurological: Present alert and oriented X3 Results Data Completed and Pending Labs on day of discharge: Labs from last 24 hours 05/01/24 05/01/24 04/30/24 04:30 02:15 23:33 WBC 5.9 RBC 4.00 L Hgb 11.8 L Hct 35.6 L MCV 89.0 MCH 29.6 MCHC 33.3 RDW 13.3 Plt Count 207 MPV 7.3 L Neut % (Auto) 62.9 Lymph % (Auto) 28.8 [place] % (Auto) 4.2 Eos % (Auto) 2.9 Baso % (Auto) 1.1 Neut # (Auto) 3.7 Lymph # (Auto) 1.7 [place] # (Auto) 0.3 Eos # (Auto) 0.2 Baso # (Auto) 0.1 VBG pH 7.38 VBG pCO2 62.2 H VBG pO2 56.3 H VBG HCO3 35.7 H VBG Total CO2 37.6 H VBG O2 Saturation 90.7 H VBG Base Excess 10.5 H VBG Lactic Acid 2.1 H Sodium 143 Potassium 3.7 Chloride 99 Carbon Dioxide 34 H Anion Gap 13.7 BUN 5 L Creatinine 0.80 Estimated Creat Clear 80 Estimated GFR 73 Est GFR ( Amer) 88 Glucose 109 H Lactate 0.8 Calcium 8.8 Phosphorus 3.7 Magnesium 1.9 Troponin I < 0.01 < 0.01 Triglycerides 144 Cholesterol 187 LDL Cholesterol Direct 95.01 L VLDL Cholesterol 29 HDL Cholesterol 54 Cholesterol/HDL Ratio 3.5 SARS-CoV-2 (PCR) Influenza A Untype (PCR) Influenza Type B (PCR) 04/30/24 23:15 WBC RBC Hgb Hct MCV MCH MCHC RDW Plt Count MPV Neut % (Auto) Lymph % (Auto) [place] % (Auto) Eos % (Auto) Baso % (Auto) Neut # (Auto) Lymph # (Auto) [place] # (Auto) Eos # (Auto) Baso # (Auto) VBG pH VBG pCO2 VBG pO2 VBG HCO3 VBG Total CO2 VBG O2 Saturation VBG Base Excess VBG Lactic Acid Sodium Potassium Chloride Carbon Dioxide Anion Gap BUN Creatinine Estimated Creat Clear Estimated GFR Est GFR ( Amer) Glucose Lactate Calcium Phosphorus Magnesium Troponin I Triglycerides Cholesterol LDL Cholesterol Direct VLDL Cholesterol HDL Cholesterol Cholesterol/HDL Ratio SARS-CoV-2 (PCR) Not detected Influenza A Untype (PCR) Not detected Influenza Type B (PCR) Not detected DS: Diagnosis Discharge Diagnosis (1) Bradycardia: Status: Acute Code(s): R00.1 - Bradycardia, unspecified (2) COPD (chronic obstructive pulmonary disease): Status: Acute Code(s): J44.9 - Chronic obstructive pulmonary disease, unspecified Qualifiers: COPD type: unspecified COPD Qualified Code(s): J44.9 - Chronic obstructive pulmonary disease, unspecified (3) CAD (coronary artery disease): Status: Acute Code(s): I25.10 - Atherosclerotic heart disease of [place] coronary artery without angina pectoris Qualifiers: Associated angina: without angina Coronary Disease-Associated Artery/Lesion type: [place] artery [place] vs. transplanted heart: [place] heart Qualified Code(s): I25.10 - Atherosclerotic heart disease of [place] coronary artery without angina pectoris Meds Home Medications and Allergies Home Medications ?Medication ?Instructions ?Recorded ?Confirmed ?Type albuterol sulfate 90 mcg/actuation 2 puff inhalation Q4-6H PRN 04/30/24 05/06/24 History aerosol inhaler (Ventolin HFA) Shortness Of Breath Or Wheezing aspirin 81 mg chewable tablet 81 mg PO DAILY #90 tabs 04/30/24 05/06/24 Rx hydroxyzine pamoate 25 mg capsule 25 mg PO TIDP PRN Anxiety 04/30/24 05/06/24 History buprenorphine 8 mg-naloxone 2 mg 1 tab sublingual DAILY 05/01/24 05/06/24 History sublingual tablet fluticasone 100 mcg-salmeterol 50 1 ea inhalation BID 05/01/24 05/06/24 History mcg/dose blistr powdr for inhalation (Advair Diskus) furosemide 40 mg tablet 40 mg PO DAILY PRN Leg swelling 05/01/24 05/06/24 Rx #30 tabs gabapentin 400 mg capsule 400 mg PO TID #90 caps 05/01/24 05/06/24 Rx gabapentin 800 mg tablet 400 mg (1/2 x 800 mg) PO TID 30 05/01/24 05/06/24 Rx days #45 tabs lidocaine 5 % topical patch 1 patch topical DAILY 05/01/24 05/06/24 History New Prescriptions to Start Prescriptions: Dennis Sanchez John Allergies Allergy/AdvReac Type Severity Reaction Status Date / Time No Known Allergies Allergy Verified 05/06/24 13:12 Discharge Plan Disposition Patient Disposition: Home, Self-Care Condition: Fair Follow up Plan Follow up with: Shola Kaiser PA [Physician Paid Internship] - 05/14/24 1:00 pm Casimiro Diaz APRN [Primary Care Provider] - 05/08/24 10:30 am Anthony Campos MD [Physician] - 05/06/24 1:00 pm (Evaluation for sleep study. Increased daytime somnolence, fatigue.) Prescriptions/Medication Reconciliation: New gabapentin 400 mg capsule 400 mg PO TID Qty: 90 0RF Continued aspirin 81 mg tablet,chewable 81 mg PO DAILY Qty: 90 3RF albuterol sulfate [Ventolin HFA] 90 mcg/actuation HFA aerosol inhaler 2 puff inhalation Q4-6H PRN (Reason: Shortness Of Breath Or Wheezing) Rx Instructions: for Copd; INHALE TWO PUFFS EVERY 6 HOURS NEEDED SHORTNESS OF BREATH hydroxyzine pamoate 25 mg capsule 25 mg PO TIDP PRN (Reason: Anxiety) fluticasone propion-salmeterol [Advair Diskus] 100-50 mcg/dose blister with device 1 ea INHALATION BID Patient Comments: use 1 puff twice a day lidocaine 5 % adhesive patch,medicated 1 patch topical DAILY Rx Instructions: leave on most painful area for up to 12 hrs buprenorphine-naloxone 8-2 mg Tablet, Sublingual 1 tab SUBLINGUAL DAILY Changed furosemide 40 mg tablet 40 mg PO DAILY PRN (Reason: Leg swelling) Qty: 30 0RF Rx Instructions: TAKE ONE TABLET BY MOUTH DAILY gabapentin 800 mg tablet 400 mg PO TID 30 Days Qty: 45 0RF Rx Instructions: take 1 tablet(800 mg) orally three times a day Discontinued bisoprolol fumarate 10 mg tablet 10 mg PO DAILY Rx Instructions: TAKE ONE TABLET BY MOUTH DAILY Problem Reconciliation Problems Reviewed?: Yes Patient Discharge Instructions ACTIVITY: Continue current activity DIET: continue same diet Additional Instructions: I have decreased your dose of gabapentin, changed Lasix to as needed for leg swelling, and stopped bisoprolol given your low heart rate and fatigue/drowsiness. You are also being discharged with an event monitor that will give us a live feedback and we will call you with any abnormal heart rate. Please follow-up with cardiology within 2 weeks. Please follow-up with pulmonology within 1 week to evaluate your for sleep study. Your undiagnosed sleep apnea may be the cause of your increased fatigue. Follow-up with your PCP within 1 week for further evaluation and management. Patient Instructions: DI for Bradycardia Print Language: French Providers Primary Care Provider: Casimiro Diaz Provider: Akin Brink Attending Provider: Akin Brink
[2024-05-01 15:54] LABS: Microscopic, Urine URINE MICROSCOPIC (MICROSCOPIC)
[2024-05-01 15:55] LABS: Appearance,Urine CLEAR (Clear); Bilirubin,Urine Negative (Negative); Blood, Urine Negative (Negative); Color,Urine YELLOW (Yellow); Glucose,Urine (UA) Negative (Negative); Ketones,Urine Negative (Negative); Leukocyte Esterase,Urine 2+ (Negative); Nitrate,Urine Negative (Negative); Protein,Urine Negative (Negative); Urobilinogen,Urine 0.2 EU/dl (0.2)
[2024-05-01 16:35] LABS: Bacteria,Urine 1+ /lpf
--- NOTE | 2024-05-02 13:34 | CARE MANAGER ---
Contacted patient related to hospital discharge. She states she is doing better. She is aware of new medication and follow up appointments. Denies any questions or concerns. SERGO Pool
== END 2024-05-01 17:12 | disposition home or self-care (01) ==
PROVIDERS: Nurse Practitioner Acute Care; Admitting Provider Student in an Organized Health Care Education/Training Program; PCP Nurse Practitioner Family; Visit Provider Student in an Organized Health Care Education/Training Program
DX: R00.1 Bradycardia, unspecified (principal); J96.11 Chronic respiratory failure with hypoxia; E78.49 Other hyperlipidemia; I25.10 Atherosclerotic heart disease of native coronary artery without angina pectoris; G47.33 Obstructive sleep apnea (adult) (pediatric); E66.09 Other obesity due to excess calories; Z68.34 Body mass index [BMI] 34.0-34.9, adult; E03.9 Hypothyroidism, unspecified; J44.9 Chronic obstructive pulmonary disease, unspecified; F17.210 Nicotine dependence, cigarettes, uncomplicated; Z79.899 Other long term (current) drug therapy; Z99.81 Dependence on supplemental oxygen; Z79.891 Long term (current) use of opiate analgesic
CPT/HCPCS: 36415; 71045; 80048; 80061; 81001; 82803; 83605; 83735; 84100; 84484; 85025; 87086; 87636; 93005; 93270; 93306; G0378; J0574

== ENCOUNTER 2024-08-20 11:49 | Outpatient (CLI) | payer MEDICAID, SELFPAY ==
[2024-08-20 22:22] LABS: Albumin Level 4.6 g/dl (3.5-5.0); Chloride 93 mmol/L (98-107); Potassium 3.8 mmoL/L (3.5-5.1); Sodium 141 mmol/L (136-145)
[2024-08-20 22:25] LABS: Alanine Aminotransferase 15 U/L (12-78); Albumin/Globulin Ratio 1.6 (1.1-1.8); Alkaline Phosphatase 78 U/L (38-126); Aspartate Amino Transferase 22 U/L (14-36); Bilirubin,Total 0.5 mg/dl (0.2-1.3); Blood Urea Nitrogen 7 mg/dl (7-17); Calcium 9.2 mg/dl (8.4-10.2); Chol/HDL Ratio 4.1 (1-3.5); Cholesterol 200 mg/dl (140-200); Estimated Glomerular Filt Rate 73 ml/min (>60); GFR (African American) 88 ML/MIN (>60); Globulin 2.9 g/dL (1.3-3.2); Glucose 111 mg/dl (74-100); HDL Cholesterol 49 mg/dl (40-60); Total Protein,Serum 7.5 g/dl (6.3-8.2); Triglycerides 174 mg/dl (30-150); VLDL Cholesterol 35 mg/dL (0-40)
[2024-08-20 22:35] LABS: Anion Gap 14.8 mEq/L (5-15); Carbon Dioxide 37 mmol/L (22.0-30.0)
[2024-08-20 22:37] LABS: Direct LDL Cholesterol 117.26 mg/dL (100-129)
== END 2024-08-20 23:59 | disposition home or self-care (01) ==
LOC: LAB.DROPOF 08-21 11:33
PROVIDERS: PCP Family Medicine; Visit Provider Family Medicine
DX: I10 Essential (primary) hypertension (principal); E78.5 Hyperlipidemia, unspecified; Z72.0 Tobacco use
CPT/HCPCS: 80053; 80061

== ENCOUNTER 2024-12-20 10:30 | Outpatient (CLI) | payer MEDICAID, SELFPAY ==
[2024-12-20 18:15] LABS: Basophils % 0.4 % (0.1-2.0); Eosinophils # 0.1 Kmm3 (0.0-0.4); Eosinophils % 1.5 % (0.1-12.0); Hematocrit 35.3 % (37.0-47.0); Hemoglobin 10.4 g/dL (12.2-16.2); Immature Granulocytes # 0.01 10^3uL; Immature Granulocytes % 0.2 %; Lymphocytes # 1.8 K/mm3 (0.7-4.5); Lymphocytes % 33.3 % (10-50); Mean Corpuscular HGB Conc 29.5 g/dL (31.8-35.4); Mean Corpuscular Hemoglobin 27.4 pg (27.0-31.2); Mean Corpuscular Volume 93.1 fl (81-99); Mean Platelet Volume 9.6 fl (7.4-10.4); Monocytes # 0.3 K/mm3 (0.1-1.0); Monocytes % 5.4 % (1.7-9.3); Neutrophils # 3.2 K/mm3 (1.8-7.8); Neutrophils % 59.2 % (37.0-80.0); Nucleated Red Blood Cells # 0 10^3/uL; Nucleated Red Blood Cells % 0 %; Platelet Count 218 K/mm3 (142-424); Red Blood Count 3.79 M/mm3 (4.20-5.40); Red Cell Distribution Width 11.9 % (11.5-17.5); Red Cell Distribution Width-SD 40.2 fL; White Blood Count 5.4 K/mm3 (4.8-10.8)
[2024-12-20 19:16] LABS: Albumin Level 4.2 g/dl (3.5-5.0); Chloride 96 mmol/L (98-107); Potassium 3.5 mmoL/L (3.5-5.1); Sodium 141 mmol/L (136-145)
[2024-12-20 19:19] LABS: Alanine Aminotransferase 11 U/L (12-78); Albumin/Globulin Ratio 1.4 (1.1-1.8); Alkaline Phosphatase 91 U/L (38-126); Aspartate Amino Transferase 19 U/L (14-36); Bilirubin,Total 0.4 mg/dl (0.2-1.3); Blood Urea Nitrogen 8 mg/dl (7-17); Cholesterol 182 mg/dl (140-200); Estimated Glomerular Filt Rate 73 ml/min (>60); GFR (African American) 88 ML/MIN (>60); Total Protein,Serum 7.2 g/dl (6.3-8.2); Triglycerides 113 mg/dl (30-150); VLDL Cholesterol 23 mg/dL (0-40)
[2024-12-20 19:20] LABS: Calcium 9.1 mg/dl (8.4-10.2); Chol/HDL Ratio 3.1 (1-3.5); Glucose 102 mg/dl (74-100); HDL Cholesterol 59 mg/dl (40-60)
[2024-12-20 19:26] LABS: Anion Gap 8.5 mEq/L (5-15); Carbon Dioxide 40 mmol/L (22.0-30.0)
[2024-12-20 19:31] LABS: Direct LDL Cholesterol 90.68 mg/dL (100-129)
== END 2024-12-20 23:59 | disposition home or self-care (01) ==
LOC: LAB.DROPOF 12-23 12:32
PROVIDERS: PCP Family Medicine; Visit Provider Family Medicine
DX: J44.9 Chronic obstructive pulmonary disease, unspecified (principal)
CPT/HCPCS: 80053; 80061; 85025

== ENCOUNTER 2025-01-14 10:20 | Outpatient (CLI) | payer MEDICAID, SELFPAY ==
[2025-01-14 11:16] LABS: Hematocrit 34.6 % (37.0-47.0); Hemoglobin 10.4 g/dL (12.2-16.2); Immature Granulocytes % 0.4 %; Mean Corpuscular HGB Conc 30.1 g/dL (31.8-35.4); Mean Corpuscular Hemoglobin 27.4 pg (27.0-31.2); Mean Corpuscular Volume 91.3 fl (81-99); Nucleated Red Blood Cells % 0 %; Platelet Count 191 K/mm3 (142-424); Red Blood Count 3.79 M/mm3 (4.20-5.40); Red Cell Distribution Width-SD 39.8 fL; White Blood Count 5.7 K/mm3 (4.8-10.8)
[2025-01-14 11:39] LABS: Alanine Aminotransferase 14 U/L (12-78); Albumin Level 4.4 g/dl (3.5-5.0); Albumin/Globulin Ratio 1.6 (1.1-1.8); Alkaline Phosphatase 74 U/L (38-126); Aspartate Amino Transferase 23 U/L (14-36); Bilirubin,Total 0.5 mg/dl (0.2-1.3); Blood Urea Nitrogen 8 mg/dl (7-17); Calcium 9.5 mg/dl (8.4-10.2); Chloride 93 mmol/L (98-107); Creatinine,Serum 0.70 mg/dl (0.52-1.04); Estimated Glomerular Filt Rate 85 ml/min (>60); GFR (African American) 103 ML/MIN (>60); Globulin 2.8 g/dL (1.3-3.2); Glucose 104 mg/dl (74-100); Potassium 4.1 mmoL/L (3.5-5.1); Sodium 141 mmol/L (136-145); Total Protein,Serum 7.2 g/dl (6.3-8.2)
[2025-01-14 11:42] LABS: Iron 99 ug/dL (37-170)
[2025-01-14 11:46] LABS: Anion Gap 13.1 mEq/L (5-15); Carbon Dioxide 39 mmol/L (22.0-30.0)
[2025-01-14 11:51] LABS: Total Iron Binding Capacity 269 ug/dL (265-497)
[2025-01-14 12:18] LABS: Ferritin 76.0 ng/ml (11.1-264)
[2025-01-14 12:20] LABS: RPR W/RFX Titers Nonreactive (Nonreactive)
[2025-01-14 12:28] LABS: Hepatitis C Ab Qual. W/ RFX NEGATIVE (Negative)
[2025-01-14 12:34] LABS: Vitamin B12 293 pg/mL (239-931)
[2025-01-14 13:56] LABS: Folate 8.52 ng/mL
[2025-01-15 07:26] LABS: Hep B Core Ab, Total Negative (Negative); Hepatitis B Surface Antigen Negative (Negative)
== END 2025-01-14 23:59 | disposition home or self-care (01) ==
LOC: LAB 10:21
PROVIDERS: PCP Family Medicine; Visit Provider Family Medicine
DX: D64.9 Anemia, unspecified (principal)
CPT/HCPCS: 36415; 80053; 80074; 82607; 82728; 82746; 83540; 83550; 85025; 86480; 86592; 86704; 86706; 87340; 87389

== ENCOUNTER 2025-03-13 11:02 | Outpatient (CLI) | payer MEDICAID, SELFPAY ==
[2025-03-13 15:10] LABS: Chloride 95 mmol/L (98-107); Sodium 142 mmol/L (136-145)
[2025-03-13 15:11] LABS: Potassium 3.8 mmoL/L (3.5-5.1)
[2025-03-13 15:13] LABS: Blood Urea Nitrogen 11 mg/dl (7-17); Creatinine,Serum 0.70 mg/dl (0.52-1.04); Estimated Glomerular Filt Rate 85 ml/min (>60); GFR (African American) 103 ML/MIN (>60)
[2025-03-13 15:14] LABS: Anion Gap 11.8 mEq/L (5-15); Calcium 8.9 mg/dl (8.4-10.2); Carbon Dioxide 39 mmol/L (22.0-30.0); Glucose 112 mg/dl (74-100)
--- OUTSIDE RECORDS SUMMARY | 2025-03-14 10:52 | XMS_ITS | Clinical Summary ---
Author Organization [facility] ystem Address [address] [place] [address] Care Team Providers Care Lithopone Charger Name Role Phone Momo Galarza MD Primary Care Provider [phone] Allergies No known active allergies Medications gabapentin (NEURONTIN) 300 MG capsule Take 300 mg by mouth 3 (Three) Times a Day. Active buprenorphine-n aloxone (SUBOXONE) 8-2 MG per SL tablet Place 1 tablet under the tongue Daily. Active hydrOXYzine pamoate (VISTARIL) 25 MG capsule Take 25 mg by mouth Daily. Active calcium carbonate (TUMS) 500 MG chewable tablet Chew 2 tablets 3 (Three) Times a Day As Needed for Indigestion or Heartburn. 2 Active famotidine (Pepcid) 20 MG tablet Take 1 tablet by mouth 2 (Two) Times a Day. 60 tablet 2 Active metoprolol tartrate (LOPRESSOR) 50 MG tablet Take 1 tablet by mouth Every 12 (Twelve) Hours. 60 tablet 2 Active amLODIPine (NORVASC) 10 MG tablet Take 1 tablet by mouth Daily. 30 tablet 2 Active Active Problems Problem Noted Date Diagnosed Date Dysphagia 06/14/2022 Influenza A 05/31/2022 Hypothyroidism 05/31/2022 H/O narcotic abuse currently on Suboxone therapy 05/31/2022 Resolved Problems Problem Noted Date Diagnosed Date Resolved Date Leukocytosis 06/14/2022 06/23/2022 COPD with acute exacerbation 05/31/2022 06/23/2022 Acute respiratory failure wi th hypoxia and hypercapnia 05/31/2022 06/01/2022 Acute hypercapnic respiratory failure 05/31/2022 06/23/2022 Family History Medical History Relation Name Comments Cancer Father Diabetes Mother Heart disease Mother Relation Name Status Comments Father Mother Social History Tobacco Use Types Packs/Day Years Used Date Smoking Tobacco: Every Day Cigarettes Cigars Tobacco Cessation:Ready to Q uit: Not Asked; Counseling Given: Not Answered Alcohol Use Standard Drinks/Week Comments Not Currently 0 (1 standard drink = 0.6 oz pur e alcohol) OASIS D0700: Social Isolation Answer Da te Recorded Frequency of experiencing loneliness or isolatio n Never 07/21/2022 OASIS A1250: Transportation Answer Date Recorded Lack of Transportation (Medical) No 07/21/2022 Lack of Transportation (Non-Medical) No 07/21/2022 Patient Unable or Declines to Respond No 07/21/2022 OASIS B1300: Health Literacy Answer Gilbert e Recorded Frequency of needing help to read materials from doctor or pharmacy Never 07/21/2022 AUDIT-C Answer Date Recorded Q1: How often do you have a drink containing alcohol? Never 06/01/2022 Q2: How many drinks containi ng alcohol do you have on a typical day when you are drinking? Patient does not drink Q3: How often do you have si x or more drinks on one occasion? Never 06/01/2022 Abuse Screen Answer Date Recorded Unsafe at Home or Work/School Not on file Feels Threatened by Someone? Not on file 06/2023 Does Anyone Keep You from Co ntacting Others or Doint Things Outside the Home? Not on file 06/13/2023 Physical Sign of Abuse Present Not on file 1 08/14/2022 Housing Stability Answer Date Recorded Current Living Arrangements Not on file 06/02 Potentially Unsafe Housing Conditions Not on jazz e 06/13/2023 Family and Community Support Answer Gilbert e Recorded Help with Day-to-Day Activities Not on file 04/14/2023 Lonely or Isolated Not on file 04/14/2023 Employment Answer Date Recorded Do you want help finding or keeping work or a vivian b? Not on file 04/14/2023 Disabilities Answer Date Recorded Concentrating, Remembering, or Making Decisions Difficulty Not on file 06/13/2023 Doing Errands Independently Difficulty Not on fi le 06/13/2023 Education Answer Date Recorded Help with school or training? Not on file Preferred Language Not on file 06/13/2023 Comments Unknown Sex and Gender Information Value Date Recorded Sex Assigned at Not on file Legal Sex Female 3:37 PM EST Gender Identity Not on file Sexual Orientation Not on file Last Filed Vital Signs Vital Sign Reading Time Taken Comments Blood Pressure 133/78 07/21/2022 11:22 AM EST Pulse 78 07/21/2022 11:22 AM EST Temperature 36.4 C (97.5 F) 07/21/2022 11:22 AM EST Respiratory Rate 16 07/21/2022 11:22 AM EST Oxygen Saturation 96% 07/21/2022 11:22 AM EST Inhaled Oxygen Concentration - - Weight 76.7 kg (169 lb 3.2 oz) 06/22/2022 5:10 A M EST Height 165.1 cm (5' 5 ) 06/05/2022 7:25 PM EST Body Mass Index 28.16 06/05/2022 7:25 PM EST Plan of Treatment Health Maintenance Due Date Last Done Comments Annual Gynecologic Pelvic and Breast Exam 1962 Pneumococcal Vaccine 50+ (1 of 2 - PCV) 1981 MAMMOGRAM 2002 COLOGUARD 09/28/2007 COLON CANCER SCREENING 5 YEAR SIGMOIDOSCOPY 09/28/2007 COLONOSCOPY 09/28/2007 COLORECTAL CANCER SCREENING 09/28/2007 CT COLONOGRAPHY 09/28/2007 FECAL OCCULT BLOOD TEST 09/28/2007 FIT Testing (1 year) 09/28/2007 ZOSTER VACCINE (1 of 2) 2012 TDAP/TD VACCINES (2 - Tdap) 05/16/2018 05/16/2008 ANNUAL PHYSICAL 06/12/2022 HEPATITIS C SCREENING 06/12/2022 COVID-19 Vaccine (1 - season) 2025 INFLUENZA VACCINE 04/02/2025 Insurance [employer] Advance Directives * CPR (Attempt to Resuscitate) (Latest Code Status on File) Date Activated Date Inactivated Comments 06/27/2022 4:08 PM No physician signature needed for this code status. Brian as Signed. * CPR (Attempt to Resuscitate) Date Activated Date Inactivated Comments 06/07/2022 9:26 AM 06/23/2022 7:49 PM Question Answer Comments Code Status (Patient has no pulse and is not breathing): CPR (Attempt to Resuscitate) Medical Interventions (Patie nt has pulse or is breathing): Full Support Release to patient: Routine Release Care Teams Lithopone Charger Relationship Specialty Start Date End Date Momo Galarza MD [address] [place] [address] PCP - General Emergency Medicine 06/23/22
== END 2025-03-13 23:59 ==
LOC: LAB.DROPOF 03-14 10:50
PROVIDERS: PCP Student in an Organized Health Care Education/Training Program; Visit Provider Student in an Organized Health Care Education/Training Program
DX: I10 Essential (primary) hypertension (principal); Z09 Encounter for follow-up examination after completed treatment for conditions other than malignant neoplasm
CPT/HCPCS: 80048

== ENCOUNTER 2025-04-05 13:16 | Inpatient (IN) | payer MEDICAID, SELFPAY ==
[2025-04-05] VITALS (26 sets, daily range): BP systolic 106–172; BP diastolic 53–81; PULSE 47–68; RESP 10–20; TEMP 36.6–37; O2SAT 90–99; BMI 35.4
--- NOTE | 2025-04-05 13:15 | ECG_ITS ---
APPROVED REPORT Exam: Resting ECG HR:55 bpm ECG Measurements Heart Rate 55 AXES MI 125 P 24 QRSd 93 QRS 64 QT 399 T 62 QTc 388 Conclusion Sinus bradycardia Normal intervals Normal axis No STEMI Electronically signed by : Rigoberto Gracia, 04/06/2025 07:31:03
--- NOTE | 2025-04-05 13:28 | ED_ITS ---
<Statement entered by Rigoberto Gracia DO - 04/06/25 07:21> I was consulted by the LAYLA, and we discussed the complexity of problems being addressed. I approved the treatment and management plan for this patient's care in the emergency department, thus performing a substantive portion of the medical decision making. Rigoberto Gracia DO Discharge Plan Disposition Patient Disposition: Admitted Condition: Good Clinical Impressions Clinical Impression: Acute and chronic respiratory failure with hypercapnia, COPD exacerbation Discharge ED Provider: Rigoberto Gracia General Adult HPI <NATO Mays - Last Filed: 04/05/25 16:34> General Chief complaint: Shortness of Breath/Dyspnea Stated complaint: Chest Pain Time Seen by Provider: 04/05/25 13:18 Mode of Arrival: Ambulatory Source of Information: Patient Limitations: No Limitations History of Present Illness HPI narrative: 64-year-old female presents to the emergency department with 1 to 2-day history of chest tightness shortness of breath, congestion , patient denies any fever chills, denies any productive cough, denies any abdominal pain no nausea no vomiting, does have constipation, last bowel movement was yesterday morning, denies any diarrhea melena hematochezia hematemesis, patient is a current everyday smoker, (vapes), denies any alcohol or drug use, denies urinary type symptomatology, denies any overt abdominal pain. Other past medical history is consistent with COPD, hypertension, peripheral neuropathy, hyperlipidemia, CAD status post 1 stent placed, hypothyroidism. Patient initial triage vitals at the bedside are notable for 90% on 4 L nasal cannula, patient is chronically on 2 L nasal cannula, and as well as bradycardia 55 bpm otherwise unremarkable. Please note that above description of symptoms, in this electronic medical record under categorization of recalled from ER triage doctor by RN are reflective of an initial nursing assessment, however, is not reflective of my full history and physical exam that was personally taken and clarified. Consequentially, this preceding description of symptoms, which may include the patient's categorized chief complaint in the EMR, do not reflect my personal clinical impression, and the ultimate description of history of present illness and patient stated complaints should be deferred to this section of the note. Unless stated otherwise or congruent with this section of the note, additional signs, symptoms, or incongruence should be interpreted as inaccurate with my clinical impression. Onset (ago): day(s) Related Data Home Medications ?Medication ?Instructions ?Recorded ?Confirmed buprenorphine 8 mg-naloxone 2 mg 1 tab sublingual LICO Y 05/01/24 03/13/25 sublingual tablet Previous Rx's ?Medication ?Instructions ?Recorded aspirin 81 mg chewable tablet 81 mg PO DAILY #90 tabs 04/30/24 fluticasone 100 mcg-salmeterol 50 1 ea inhalation BID #60 ea 11/13/24 mcg/dose blistr powdr for inhalation (Advair Diskus) furosemide 40 mg tablet 40 mg PO DAILY PRN Leg swell ing 11/13/24 #30 tabs albuterol sulfate 90 mcg/actuation See Rx Instructions .Route 12/13/24 aerosol inhaler (Ventolin HFA) .COMPLEX #18 grams gabapentin 800 mg tablet 800 mg PO TID #90 tabs 02/07 bisoprolol fumarate 10 mg tablet 10 mg PO DAILY #30 ta bs 02/11/25 lidocaine 5 % topical patch See Rx Instructions .Route 03/10/25 .COMPLEX #30 patches nicotine 14 mg/24 hr daily 1 patch transdermal DAILY # 28 ea 03/13/25 transdermal patch ipratropium 0.5 mg-albuterol 3 mg See Rx Instructions .Route 03/14/25 (2.5 mg base)/3 mL nebulization .COMPLEX #180 mL soln hydroxyzine HCl 25 mg tablet See Rx Instructions .Rout e 04/02/25 .COMPLEX #120 tabs Allergies Allergy/AdvReac Type Severity Reaction Status Date / Time No Known Allergies Allergy Verified 03/13/25 10:11 [facility] <NATO Mays - Last Filed: 04/05/25 16:34> [facility] Disclaimer: The information contained in this section may have been updated after the patient was seen, as this information can be updated by other users. Medical History (Updated 04/05/25 @ 15:39 by Dennis Angel MD) HTN (hypertension) Peripheral neuropathy Opioid use disorder Cigarette smoker Loud snoring Encounter for screening for malignant neoplasm of lung History of smoking 30 or more pack years Cervical cancer screening Current every day vaping Acute exacerbation of chronic obstructive pulmonary disease Acute exacerbation of chronic obstructive pulmonary disease Chronic dyspnea Hypoxemia Vitamin D deficiency Degenerative joint disease of knee Lumbar radicular pain Tobacco use Dyspnea NAY (obstructive sleep apnea) HLD (hyperlipidemia) CAD (coronary artery disease) Bilateral lower extremity edema Anxiety COPD (chronic obstructive pulmonary disease) Edema Abnormal result of cardiovascular function study Chronic cough Allergies History of cataract History of narcotic addiction Arthritis Anxiety GERD (gastroesophageal reflux disease) COPD (chronic obstructive pulmonary disease) Surgical History History of cataract surgery S/P bilateral breast lumpectomy S/P carpal tunnel release Family History Diabetes Mother Sister Coronary artery disease Mother Breast cancer Sister Hypertension Mother Sister Social History Smoking Status: Current every day smoker tobacco type: e-cigarettes alcohol intake: never substance use type: former substance user, sedatives and painkillers current occupational status: unemployed Travel in the last 8 weeks?: None caffeine: Yes Have you lived/traveled outside US in past 30 days?: No Contact w/someone who lives/traveled outside US past 30 days?: No Exposure to someone with infectious disease in past 14 days?: No Do you have a fever (greater than 100.4 F or 38 C)?: No Have you tested positive for COVID-19?: No Exposed to someone with COVID-19 in past 14 days?: No Do you have a sore throat?: No Do you have a cough?: No Do you have any weakness?: No Do you have any diarrhea?: No Are you experiencing any unusual bleeding?: No Do you have any muscle aches/pain?: No Do you have any abdominal pain?: No Are you experiencing loss of taste or smell?: No Other Medical History Have you received the Flu Vaccine for this season: No Have you received the Pneumonia Vaccine: No <NATO Mays - Last Filed: 04/05/25 16:34> ROS Obtained: Yes All systems reviewed & no additional complaints except as documented Physical Exam <NATO Mays - Last Filed: 04/05/25 16:34> General General appearance: alert and in no apparent distress Head Head exam: atraumatic and normocephalic Eye Eye exam: Present normal appearance, PERRL and EOMI Neck Neck exam: Present full ROM; Absent meningismus Chest Chest inspection: Present normal inspection Respiratory Respiratory exam: Present other (Low lung volumes, and mild rales noted at bilateral lung yousif); Absent normal lung sounds bilaterally, respiratory distress, wheezes, stridor, accessory muscle use or prolonged expiratory phase Cardiovascular Cardiovascular exam: Present normal rhythm and other (Pulses equal and symmetric in bilateral upper and lower extremities) Abdominal Exam Abdominal exam: Absent distention, tenderness, guarding or rebound Extremities Exam Extremities exam: Present other (1+ bilateral lower extremity pitting edema, venous atrophic skin changes are noted,); Absent edema Neurological Exam Neurological exam: Present alert Psychiatric Psychiatric exam: Present normal affect Skin Skin exam: Present warm and dry Medical Decision Making <NATO Mays - Last Filed: 04/05/25 16:34> Medical Records Medical records reviewed: Yes I reviewed the patient's medical records. Screening: Per USPSTF and CDC recommendations, given the prevalence of disease in our region, it is our hospital?s policy to screen for HIV and viral Hepatitis for all patients aged 18 and over and those with ongoing risk factors. Allan Inquiry Pt receiving controlled substance: No Allan was queried for this patient: No Vital Signs: 04/05/25 13:30 04/05/25 13:31 04/05/25 13:36 Temperature 98.2 F Temperature Source Oral Pulse Rate Pulse Rate [Left Radial] 55 L Respiratory Rate 20 11 L Blood Pressure 169/68 H Blood Pressure [Right Arm] 160/79 H Blood Pressure Mean [Right Arm] 106 Blood Pressure Source Blood Pressure Position 02 Sat by Pulse Oximetry 90 L 95 90 L Oxygen Delivery Method Nasal Cannula Nasal Cannula Oxygen Flow Rate (LPM) 4 4 Fraction of Inspired Oxygen 04/05/25 14:01 04/05/25 14:31 04/05/25 15:01 Temperature Temperature Source Pulse Rate 53 L 61 60 Pulse Rate [Left Radial] Respiratory Rate 11 L 14 13 Blood Pressure 143/81 H 163/77 H 162/75 H Blood Pressure [Right Arm] Blood Pressure Mean [Right Arm] Blood Pressure Source Blood Pressure Position 02 Sat by Pulse Oximetry 95 92 L 91 L Oxygen Delivery Method Oxygen Flow Rate (LPM) Fraction of Inspired Oxygen 04/05/25 15:31 04/05/25 15:39 04/05/25 15:56 Temperature 98.6 F Temperature Source Oral Pulse Rate 54 L 51 L Pulse Rate [Left Radial] Respiratory Rate 10 L 20 Blood Pressure 172/75 H 172/75 H Blood Pressure [Right Arm] Blood Pressure Mean [Right Arm] Blood Pressure Source Automatic Cuff Blood Pressure Position Sitting 02 Sat by Pulse Oximetry 98 Oxygen Delivery Method BiPAP Oxygen Flow Rate (LPM) Fraction of Inspired Oxygen 45 04/05/25 16:01 Temperature Temperature Source Pulse Rate 52 L Pulse Rate [Left Radial] Respiratory Rate 14 Blood Pressure 124/57 L Blood Pressure [Right Arm] Blood Pressure Mean [Right Arm] Blood Pressure Source Blood Pressure Position 02 Sat by Pulse Oximetry 96 Oxygen Delivery Method Oxygen Flow Rate (LPM) Fraction of Inspired Oxygen Lab Data Lab results reviewed: Yes I reviewed the patient's lab results. Lab Results 04/05/25 13:25: WBC 3.6 L, RBC 3.84 L, Hgb 11.1 L, Hct 37.5, MCV 97.7, MCH 28.9, MCHC 29.6 L, RDW 12.7, Plt Count 174, MPV 9.3, Neut % (Auto) 64.7, Lymph % (Auto) 25.9, [place] % (Auto) 6.5, Eos % (Auto) 2.0, Baso % (Auto) 0.6, Neut # (Auto) 2.3, Lymph # (Auto) 0.9, [place] # (Auto) 0.2, Eos # (Auto) 0.1, Baso # (Auto) 0.0, PT 10.9, INR 0.98, D-Dimer 0.56 H, Sodium 142, Potassium 4.0, C hloride 91 L, Carbon Dioxide 44 H*, Anion Gap 11.0, BUN 11, Creatinine 0.80, Estimated Creat Clear 84, Estimated GFR 73, Est GFR ( Amer) 88, Glucose 132 H, Calcium 9.3, Magnesium 2.0, Total Bilirubin 0.9, AST 25, ALT 22, Alkaline Phosphatase 77, Troponin I < 0.01, NT-Pro-B Natriuret Pep 851 H, Total Protein 7.7, Albumin 4.5, Globulin 3.2, Albumin/Globulin Ratio 1.4, Lipase 61 04/05/25 13:28: VBG pH 7.29 L, VBG pCO2 94.2 H, VBG pO2 35.7, VBG HCO3 44.0 H, V BG Total CO2 46.9 H, VBG O2 Saturation 68.1, VBG Base Excess 17.3 H, VBG Lactic Acid 1.1 10/04/25 13:40: SARS-CoV-2 (PCR) Not detected, Influenza A Untype (PCR) Not detected, Influenza Type B (PCR) Not detected 04/05/25 15:35: Specimen Source Right radial, O2 % Bipap 22/8 45%, ABG pH 7.24 L*, ABG pCO2 91.3 H, ABG pO2 71.3 L, ABG HCO3 38.2 H, ABG Total CO2 41.0 H, ABG O2 Saturation 92, ABG Base Excess 10.8 H, Luis Test Patient unable 04/05/25 13:25 04/05/25 13:25 Orders (Tests/Meds): ED MEDICATIONS Generic Name Dose Route Start Last Admin Trade Name Freq PRN Reason Stop Dose Admin Acetaminophen 650 mg 04/05/25 15:35 Acetaminophen 325mg Tab PO 05/05/25 15:34 Q4HP PRN Fever or Mild Pain (1-3) Enoxaparin Sodium 40 mg 04/06/25 09:00 Enoxaparin 40mg/0.4ml Syringe SUBCUT 05/06/25 08:59 DAILY LANA Nicotine 21 mg 04/05/25 15:35 Nicotine 21mg/24hr Patch TD 05/05/25 15:34 DAILYP PRN Nicotine Cravings Pantoprazole Sodium 40 mg 04/05/25 21:00 Pantoprazole 40mg Tablet PO 05/05/25 20:59 HS LANA Discontinued Medications Generic Name Dose Route Start Last Admin Trade Name Freq PRN Reason Stop Dose Admin Albuterol/Ipratropium 6 ml 04/05/25 13:43 04/05/25 14:02 Ipratropium/Albuterol 3 Ml Neb IH 04/05/25 13:44 6 ml ONCE ONE Administration Bumetanide 1 mg 04/05/25 15:35 04/05/25 15:38 Bumetanide 1mg/4ml Vial IV 04/05/25 15:36 1 mg ONCE ONE Administration Methylprednisolone Sodium Succinate 125 mg 04/05/25 13:44 04/05/25 14:02 Methylprednisolone Sod Succ 125mg Vial IV 04/05/25 13:45 125 mg ONCE ONE Administration ORDERS Category Date Time Status Pulmonology Consult [Consult to Pulmonology] [CONS] Cons 04/05/25 15:35 Active Routine XR chest portable Stat Exams 04/05/25 13:33 Completed Complete Blood Count Auto Diff AMLAB Lab 04/06/25 06:00 Ordered Complete Blood Count Auto Diff Stat Lab 04/05/25 13:25 Completed Comprehensive Metabolic Panel AMLAB Lab 04/06/25 06:00 Ordered Comprehensive Metabolic Panel Stat Lab 04/05/25 13:25 Completed D-Dimer Stat Lab 04/05/25 13:25 Completed Lipase Stat Lab 04/05/25 13:25 Completed Magnesium AMLAB Lab 04/06/25 06:00 Ordered Magnesium Stat Lab 04/05/25 13:25 Completed NT Pro Brain Natriuretic Pep. Stat Lab 04/05/25 13:25 Completed PT INR [Prothrombin Time INR] Stat Lab 04/05/25 13:25 Completed Rapid PCR Covid and Flu A/B Stat Lab 04/05/25 13:40 Completed Troponin I Stat Lab 04/05/25 13:25 Completed ABG [Arterial Blood Gas] Stat RT 04/05/25 15:35 Results VBG [Venous Blood Gas] Stat RT 04/05/25 13:28 Completed Medical Decision Narrative: 64-year-old female presents the emergency department with shortness of breath chest tightness for the last 2 days, differential diagnose include but not limited to COPD exacerbation, CHF exacerbation, pleural effusion, pneumonia, PE, cardiac arrhythmia, electrolyte disturbance, ACS, viral bronchitis, acute hypoxemic respiratory failure, pleurisy among others. I discussed this patient's case with the attending surgeon Will obtain basic laboratory studies, D-dimer, lipase magnesium level proBNP PT/INR, rib PCR COVID and flu, troponin, VBG EKG and chest x-ray. VBGs notable for acidotic pH at 7.29,, pCO2 is elevated at 94.2, bicarb is elevated 44, negative venous lactic acid level, patient notable respiratory acidosis, unsure of chronicity, but will place patient on BiPAP I reviewed the patient's chest x-ray and independently interpreted myself, low lung volumes, some possible consolidation versus atelectasis in the lower lung bases, no obvious effusion, will give DuoNeb 6 mL, as well as 125 mg IV methylprednisone for COPD exacerbation. CBC is notable for neutropenia at 3.6, hemoglobin 11.1 otherwise unremarkable CMP unremarkable with the exception of hypercapnia at 44, hypochloremia 91. PT/INR within normal limits D-dimer is 0.56, utilizing years criteria, negative for PE, utilizing age- adjusted D-dimer criteria, less likely for PE VTE/PE troponin initially is within normal limits at less than 0.01, proBNP is mildly elevated a 51. Influenza and COVID-19 are negative via PCR. Patient was placed on BiPAP, per RT, 21/02, rate of 16, 45%, VT is 432. I discussed the patient's case with Dr. Angel the hospitalist at 3:30 PM, he is in agreement with the current admission plan/treatment plan. He would like me obtain ABG, and give 1 mg Bumex IV for concern of fluid overload. I discussed need for admission with patient at the bedside patient is in agreement with current admission plan/treatment plan. I reviewed the patient's chest x-ray along with corresponding radiological report, no acute cardiopulmonary process. ABG is notable for 7.2 ABG is notable for 7.24, CO2 is elevated at 91.3, bicarb is elevated at 38.2, Of note approximately from 4 PM the patient got more somnolent, both Dr. Gracia and I presented to the bedside patient requiring sternal rubs, arouses to noxious stimuli still is alert oriented. Dr. Gracia discussed this new clinical exam finding interactively with Dr. Angel the hospitalist physician. See attending physician note for full details., We will watch the patient in the emergency department for 20-30 minutes, prior to bring the patient up to the stepdown unit, to watch her mental status on BiPAP patient is full code. Closed communication performed with hospitalist physician Dr. Angel proximally 4:30 PM, patient will be admitted to ICU instead of stepdown and will go ahead and admit the patient, patient more arousable now on increased BiPAP. <Rigoberto Gracia, DO - Last Filed: 04/05/25 16:52> Vital Signs: 04/05/25 13:30 04/05/25 13:31 04/05/25 13:36 Temperature 98.2 F Temperature Source Oral Pulse Rate Pulse Rate [Left Radial] 55 L Respiratory Rate 20 11 L Blood Pressure 169/68 H Blood Pressure [Right Arm] 160/79 H Blood Pressure Mean [Right Arm] 106 Blood Pressure Source Blood Pressure Position 02 Sat by Pulse Oximetry 90 L 95 90 L Oxygen Delivery Method Nasal Cannula Nasal Cannula Oxygen Flow Rate (LPM) 4 4 Fraction of Inspired Oxygen 04/05/25 14:01 04/05/25 14:31 04/05/25 15:01 Temperature Temperature Source Pulse Rate 53 L 61 60 Pulse Rate [Left Radial] Respiratory Rate 11 L 14 13 Blood Pressure 143/81 H 163/77 H 162/75 H Blood Pressure [Right Arm] Blood Pressure Mean [Right Arm] Blood Pressure Source Blood Pressure Position 02 Sat by Pulse Oximetry 95 92 L 91 L Oxygen Delivery Method Oxygen Flow Rate (LPM) Fraction of Inspired Oxygen 04/05/25 15:31 04/05/25 15:39 04/05/25 15:56 Temperature 98.6 F Temperature Source Oral Pulse Rate 54 L 51 L Pulse Rate [Left Radial] Respiratory Rate 10 L 20 Blood Pressure 172/75 H 172/75 H Blood Pressure [Right Arm] Blood Pressure Mean [Right Arm] Blood Pressure Source Automatic Cuff Blood Pressure Position Sitting 02 Sat by Pulse Oximetry 98 Oxygen Delivery Method BiPAP Oxygen Flow Rate (LPM) Fraction of Inspired Oxygen 45 04/05/25 16:01 Temperature Temperature Source Pulse Rate 52 L Pulse Rate [Left Radial] Respiratory Rate 14 Blood Pressure 124/57 L Blood Pressure [Right Arm] Blood Pressure Mean [Right Arm] Blood Pressure Source Blood Pressure Position 02 Sat by Pulse Oximetry 96 Oxygen Delivery Method Oxygen Flow Rate (LPM) Fraction of Inspired Oxygen Lab Data Lab Results 04/05/25 13:25: WBC 3.6 L, RBC 3.84 L, Hgb 11.1 L, Hct 37.5, MCV 97.7, MCH 28.9, MCHC 29.6 L, RDW 12.7, Plt Count 174, MPV 9.3, Neut % (Auto) 64.7, Lymph % (Auto) 25.9, [place] % (Auto) 6.5, Eos % (Auto) 2.0, Baso % (Auto) 0.6, Neut # (Auto) 2.3, Lymph # (Auto) 0.9, [place] # (Auto) 0.2, Eos # (Auto) 0.1, Baso # (Auto) 0.0, PT 10.9, INR 0.98, D-Dimer 0.56 H, Sodium 142, Potassium 4.0, C hloride 91 L, Carbon Dioxide 44 H*, Anion Gap 11.0, BUN 11, Creatinine 0.80, Estimated Creat Clear 84, Estimated GFR 73, Est GFR ( Amer) 88, Glucose 132 H, Calcium 9.3, Magnesium 2.0, Total Bilirubin 0.9, AST 25, ALT 22, Alkaline Phosphatase 77, Troponin I < 0.01, NT-Pro-B Natriuret Pep 851 H, Total Protein 7.7, Albumin 4.5, Globulin 3.2, Albumin/Globulin Ratio 1.4, Lipase 61 04/05/25 13:28: VBG pH 7.29 L, VBG pCO2 94.2 H, VBG pO2 35.7, VBG HCO3 44.0 H, V BG Total CO2 46.9 H, VBG O2 Saturation 68.1, VBG Base Excess 17.3 H, VBG Lactic Acid 1.1 04/05/25 13:40: SARS-CoV-2 (PCR) Not detected, Influenza A Untype (PCR) Not detected, Influenza Type B (PCR) Not detected 04/05/25 15:35: Specimen Source Right radial, O2 % Bipap 22/8 45%, ABG pH 7.24 L*, ABG pCO2 91.3 H, ABG pO2 71.3 L, ABG HCO3 38.2 H, ABG Total CO2 41.0 H, ABG O2 Saturation 92, ABG Base Excess 10.8 H, Luis Test Patient unable Orders (Tests/Meds): ED MEDICATIONS Generic Name Dose Route Start Last Admin Trade Name Freq PRN Reason Stop Dose Admin Acetaminophen 650 mg 04/05/25 15:35 Acetaminophen 325mg Tab PO 05/05/25 15:34 Q4HP PRN Fever or Mild Pain (1-3) Enoxaparin Sodium 40 mg 04/06/25 09:00 Enoxaparin 40mg/0.4ml Syringe SUBCUT 05/06/25 08:59 DAILY LANA Nicotine 21 mg 04/05/25 15:35 Nicotine 21mg/24hr Patch TD 05/05/25 15:34 DAILYP PRN Nicotine Cravings Pantoprazole Sodium 40 mg 04/05/25 21:00 Pantoprazole 40mg Tablet PO 05/05/25 20:59 HS LANA Discontinued Medications Generic Name Dose Route Start Last Admin Trade Name Freq PRN Reason Stop Dose Admin Albuterol/Ipratropium 6 ml 04/05/25 13:43 04/05/25 14:02 Ipratropium/Albuterol 3 Ml Neb IH 04/05/25 13:44 6 ml ONCE ONE Administration Bumetanide 1 mg 04/05/25 15:35 04/05/25 15:38 Bumetanide 1mg/4ml Vial IV 04/05/25 15:36 1 mg ONCE ONE Administration Methylprednisolone Sodium Succinate 125 mg 04/05/25 13:44 04/05/25 14:02 Methylprednisolone Sod Succ 125mg Vial IV 04/05/25 13:45 125 mg ONCE ONE Administration ORDERS Category Date Time Status Pulmonology Consult [Consult to Pulmonology] [CONS] Cons 04/05/25 15:35 Active Routine XR chest portable Stat Exams 04/05/25 13:33 Completed Complete Blood Count Auto Diff AMLAB Lab 04/06/25 06:00 Ordered Complete Blood Count Auto Diff Stat Lab 04/05/25 13:25 Completed Comprehensive Metabolic Panel AMLAB Lab 04/06/25 06:00 Ordered Comprehensive Metabolic Panel Stat Lab 04/05/25 13:25 Completed D-Dimer Stat Lab 04/05/25 13:25 Completed Lipase Stat Lab 04/05/25 13:25 Completed Magnesium AMLAB Lab 04/06/25 06:00 Ordered Magnesium Stat Lab 04/05/25 13:25 Completed NT Pro Brain Natriuretic Pep. Stat Lab 04/05/25 13:25 Completed PT INR [Prothrombin Time INR] Stat Lab 04/05/25 13:25 Completed Rapid PCR Covid and Flu A/B Stat Lab 04/05/25 13:40 Completed Troponin I Stat Lab 04/05/25 13:25 Completed ABG [Arterial Blood Gas] Stat RT 04/05/25 15:35 Results VBG [Venous Blood Gas] Stat RT 04/05/25 13:28 Completed ECG Data Tracing #1: I reviewed this ECG and interpreted as documented below: EKG personally turbid by me demonstrates sinus bradycardia at a rate of 55 bpm, normal axis, no CO prolongation, narrow QRS, no QTc prolongation. No ST elevation or depression. No overt signs of ischemia or arrhythmia Critical Care <NATO Mays - Last Filed: 04/05/25 16:34> Critical Care Time Critical Care Time: No
--- NOTE | 2025-04-05 13:33 | XR_ITS ---
PROCEDURE INFORMATION: Exam: XR Chest Exam date and time: 04/05/2025 1:37 PM Age: 64 years old Clinical indication: Shortness of breath; Additional info: Shortness of air chest tightness TECHNIQUE: Imaging protocol: Radiologic exam of the chest. Views: 1 view. COMPARISON: CR XR CHEST PORTABLE 04/30/2024 11:12 PM FINDINGS: Lungs: Unremarkable. No consolidation. Pleural spaces: Unremarkable. No gross pleural effusion. No pneumothorax. Heart/Mediastinum: There is stable enlargement of the cardiac silhouette. Bones/joints: Unremarkable. IMPRESSION: There is no acute cardiopulmonary process.
--- OUTSIDE RECORDS SUMMARY | 2025-04-05 13:33 | XMS_ITS | Clinical Summary ---
Author Organization [facility] Address [address] [place] [address] Care Team Providers Care Sales And Service Officer Name Role Phone Momo Galarza MD Primary Care Provider [phone] Allergies No known active allergies Medications gabapentin [...] ANNUAL PHYSICAL 06/12/2022 HEPATITIS C SCREENING 06/12/2022 INFLUENZA VACCINE 01/31/2025 Insurance [employer] Advance Directives [...] Release to patient: Routine Release Care Teams Sales And Service Officer Relationship Specialty Start Date End Date Momo Galarza MD [address] [place] [address] PCP - General Emergency Medicine 06/23/22
[2025-04-05 13:37] LABS: Lactate Venous 1.1 mmol/L (0.4-2.0); VBG HCO3 44.0 mmol/L (23-30); VBG PH 7.29 mmol/L (7.31-7.41); VBG PO2 35.7 mmol/L (28-40)
[2025-04-05 13:42] LABS: Hematocrit 37.5 % (37.0-47.0); Hemoglobin 11.1 g/dL (12.2-16.2); Immature Granulocytes % 0.3 %; Mean Corpuscular HGB Conc 29.6 g/dL (31.8-35.4); Mean Corpuscular Hemoglobin 28.9 pg (27.0-31.2); Mean Corpuscular Volume 97.7 fl (81-99); Nucleated Red Blood Cells % 0 %; Platelet Count 174 K/mm3 (142-424); Red Blood Count 3.84 M/mm3 (4.20-5.40); Red Cell Distribution Width-SD 45.6 fL; White Blood Count 3.6 K/mm3 (4.8-10.8)
[2025-04-05 13:43] LABS: VBG PCO2 94.2 mmol/L (35-51)
[2025-04-05 13:46] LABS: Coronavirus 19, PCR Not Detected (NotDetected); Influenza A, PCR Not Detected (NotDetected); Influenza B, PCR Not Detected (NotDetected)
[2025-04-05 14:02] LABS: Alanine Aminotransferase 22 U/L (12-78); Albumin Level 4.5 g/dl (3.5-5.0); Albumin/Globulin Ratio 1.4 (1.1-1.8); Alkaline Phosphatase 77 U/L (38-126); Aspartate Amino Transferase 25 U/L (14-36); Bilirubin,Total 0.9 mg/dl (0.2-1.3); Blood Urea Nitrogen 11 mg/dl (7-17); Calcium 9.3 mg/dl (8.4-10.2); Chloride 91 mmol/L (98-107); Creatinine Clearance Estimated 84 mL/min (50-200); Creatinine,Serum 0.80 mg/dl (0.52-1.04); Estimated Glomerular Filt Rate 73 ml/min (>60); GFR (African American) 88 ML/MIN (>60); Globulin 3.2 g/dL (1.3-3.2); Glucose 132 mg/dl (74-100); Lipase 61 U/L (23-300); Magnesium 2.0 mg/dl (1.6-2.3); Potassium 4.0 mmoL/L (3.5-5.1); Sodium 142 mmol/L (136-145); Total Protein,Serum 7.7 g/dl (6.3-8.2)
[2025-04-05] MEDS: IPRATROPIUM/ALBUTEROL 3 ML NEB 6 ML IH (14:02)
[2025-04-05] MEDS: METHYLPREDNISOLONE SOD SUCC 125MG VIAL 125 MG IV (14:02)
[2025-04-05 14:09] LABS: INR 0.98 (0.9-1.1); Prothrombin Time 10.9 seconds (10.1-12.5)
[2025-04-05 14:11] LABS: Anion Gap 11.0 mEq/L (5-15); Carbon Dioxide 44 mmol/L (22.0-30.0)
[2025-04-05 14:13] LABS: NT Pro Brain Natriuretic Pep. 851 pg/mL (0-125)
[2025-04-05 14:21] LABS: D-Dimer 0.56 ug/mL (0.0-0.5)
[2025-04-05 14:29] LABS: Troponin I < 0.01 ng/ml (0.00-0.034)
--- NOTE | 2025-04-05 15:02 | PC.NURSE ---
Called RT to place Bipap on patient.
[2025-04-05] MEDS: BUMETANIDE 1MG/4ML VIAL 1 MG IV (15:38)
--- NOTE | 2025-04-05 15:38 | EXP.HP ---
History of Present Illness *Admission Date: 04/05/25 *Reason for visit:: Weakness, confusion, short of breath *History of present illness: Ms. Cummings is a 64-year-old female with history of COPD, chronic hypoxic respiratory failure on oxygen, chronic pain with chronic opiate use, hypertension, hypothyroid. She presented the ER with 2 to 3-day history of shortness of breath, chest tightness, congestion. Denies fever or chills. No nausea or vomiting. She states she has been feeling more weak, fatigued, short of breath. Patient has not had any abdominal pain. Does struggle with constipation. Currently smokes daily. Denies alcohol or drug use. Reports compliance taking her pain medications and medications for neuropathy. On workup in the ER, initial presentation she was hypoxic on her baseline 2 L necessitating increased to 4 L to sat greater than 90%. Found to bradycardiac with heart rate in the 50s. Initial labs showed severe hypercapnia on blood gas with VBG pH of 7.2 pCO2 in the 90s. White count low at 3.6. Kidney function at baseline. BNP mildly elevated 850. Chest imaging showing cephalization of vasculature and pulmonary congestion/edema in lower lung yousif. Started on BiPAP. Medicine consulted for admission and further management. Evaluated in the ER. Patient falls asleep easily on exam. Tolerating BiPAP. Pulling volumes of 250-400 depending on if she is awake and interactive or sleeping. [facility] Disclaimer: The information contained in this section may have been updated after the patient was seen, as this information can be updated by other users. Medical History HTN (hypertension) Peripheral neuropathy Opioid use disorder Cigarette smoker Loud snoring Encounter for screening for malignant neoplasm of lung History of smoking 30 or more pack years Cervical cancer screening Current every day vaping Acute exacerbation of chronic obstructive pulmonary disease Acute exacerbation of chronic obstructive pulmonary disease Chronic dyspnea Hypoxemia Vitamin D deficiency Degenerative joint disease of knee Lumbar radicular pain Tobacco use Dyspnea NAY (obstructive sleep apnea) HLD (hyperlipidemia) CAD (coronary artery disease) Bilateral lower extremity edema Anxiety COPD (chronic obstructive pulmonary disease) Edema Abnormal result of cardiovascular function study Chronic cough Allergies History of cataract History of narcotic addiction Arthritis Anxiety GERD (gastroesophageal reflux disease) COPD (chronic obstructive pulmonary disease) Surgical History History of heart artery stent History of cataract surgery S/P bilateral breast lumpectomy S/P carpal tunnel release Family History Mother Diabetes Sister Diabetes Mother Hypertension Sister Hypertension Mother Coronary artery disease Sister Breast cancer Social History Smoking Status: Current every day smoker tobacco type: e-cigarettes alcohol intake: never substance use type: former substance user, sedatives and painkillers current occupational status: unemployed Travel in the last 8 weeks?: None caffeine: Yes Have you lived/traveled outside [place] in past 30 days?: No Contact w/someone who lives/traveled outside [place] past 30 days?: No Exposure to someone with infectious disease in past 14 days?: No Do you have a fever (greater than 100.4 F or 38 C)?: No Have you tested positive for COVID-19?: No Exposed to someone with COVID-19 in past 14 days?: No Do you have a sore throat?: No Do you have a cough?: No Do you have any weakness?: No Do you have any diarrhea?: No Are you experiencing any unusual bleeding?: No Do you have any muscle aches/pain?: No Do you have any abdominal pain?: No Are you experiencing loss of taste or smell?: No Other Medical History Have you received the Flu Vaccine for this season: No Have you received the Pneumonia Vaccine: No Review of Systems Review of Systems Review of systems (narrative): 14 point review of systems performed, pertinent positives and negatives as per HPI. Difficult to obtain from patient due to falling asleep during questions Meds Home Medications and Allergies Home Medications ?Medication ?Instructions ?Recorded ?Confirmed ?Type aspirin 81 mg chewable tablet 81 mg PO DAILY #90 tabs 04/30/24 04/05/25 Rx buprenorphine 8 mg-naloxone 2 mg 1 tab sublingual DAILY 05/01/24 04/05/25 History sublingual tablet fluticasone 100 mcg-salmeterol 50 1 ea inhalation BID #60 ea 11/13/24 03/13/25 Rx mcg/dose blistr powdr for inhalation (Advair Diskus) furosemide 40 mg tablet 40 mg PO DAILY PRN Leg swelling 11/13/24 04/05/25 Rx #30 tabs albuterol sulfate 90 mcg/actuation See Rx Instructions .Route 12/13/24 03/13/25 Rx aerosol inhaler (Ventolin HFA) .COMPLEX #18 grams gabapentin 800 mg tablet 800 mg PO TID #90 tabs 02/07/25 04/05/25 Rx bisoprolol fumarate 10 mg tablet 10 mg PO DAILY #30 tabs 02/11/25 04/05/25 Rx lidocaine 5 % topical patch See Rx Instructions .Route 03/10/25 03/13/25 Rx .COMPLEX #30 patches nicotine 14 mg/24 hr daily 1 patch transdermal DAILY #28 ea 03/13/25 03/13/25 Rx transdermal patch ipratropium 0.5 mg-albuterol 3 mg See Rx Instructions .Route 03/14/25 04/05/25 Rx (2.5 mg base)/3 mL nebulization .COMPLEX #180 mL soln hydroxyzine HCl 25 mg tablet See Rx Instructions .Route 04/02/25 04/05/25 Rx .COMPLEX #120 tabs New Prescriptions to Start Prescriptions: Allergies Allergy/AdvReac Type Severity Reaction Status Date / Time No Known Allergies Allergy Verified 03/13/25 10:11 Exam Data for Last 24 hours Vital signs and Labs for Last 24 Hours: Temp Pulse Resp BP Pulse Ox O2 Del Method O2 Flow Rate 98.2 F 60 13 162/75 H 91 L Nasal Cannula 4 04/05/25 13:30 04/05/25 15:01 04/05/25 15:01 04/05/25 15:01 04/05/25 15:01 04/05/25 13:36 04/05/25 13:36 Laboratory Results - last 24 hr 04/05/25 13:25: WBC 3.6 L, RBC 3.84 L, Hgb 11.1 L, Hct 37.5, MCV 97.7, MCH 28.9, MCHC 29.6 L, RDW 12.7, Plt Count 174, MPV 9.3, Neut % (Auto) 64.7, Lymph % (Auto) 25.9, [place] % (Auto) 6.5, Eos % (Auto) 2.0, Baso % (Auto) 0.6, Neut # (Auto) 2.3, Lymph # (Auto) 0.9, [place] # (Auto) 0.2, Eos # (Auto) 0.1, Baso # (Auto) 0.0, PT 10.9, INR 0.98, D-Dimer 0.56 H, Sodium 142, Potassium 4.0, Chloride 91 L, Carbon Dioxide 44 H*, Anion Gap 11.0, BUN 11, Creatinine 0.80, Estimated Creat Clear 84, Estimated GFR 73, Est GFR ( Amer) 88, Glucose 132 H, Calcium 9.3, Magnesium 2.0, Total Bilirubin 0.9, AST 25, ALT 22, Alkaline Phosphatase 77, Troponin I < 0.01, NT-Pro-B Natriuret Pep 851 H, Total Protein 7.7, Albumin 4.5, Globulin 3.2, Albumin/Globulin Ratio 1.4, Lipase 61 04/05/25 13:28: VBG pH 7.29 L, VBG pCO2 94.2 H, VBG pO2 35.7, VBG HCO3 44.0 H, VBG Total CO2 46.9 H, VBG O2 Saturation 68.1, VBG Base Excess 17.3 H, VBG Lactic Acid 1.1 04/05/25 13:40: SARS-CoV-2 (PCR) Not detected, Influenza A Untype (PCR) Not detected, Influenza Type B (PCR) Not detected I & O for Last 24 hours: Intake & Output 04/02/25 04/03/25 04/04/25 04/05/25 23:59 23:59 23:59 23:59 Weight 90.718 kg Constitutional Constitutional: moderate distress, obese, chronically ill appearing and somnolent *Routine HEENT Exam Head: Present normocephalic Eye: Present EOMI and PERRL ENT: Present mucous membranes moist *Routine Neck Exam Neck: Present supple; Absent lymphadenopathy *Routine Respiratory Exam Respiratory: Present prolonged expiratory phase, crackles (in bases bilaterally) and diminished air movement; Absent rhonchi or wheezes *Routine Cardiovascular Exam Cardiovascular: Present bradycardia Comments: Regular rhythm *Routine Abdominal Exam Abdominal: Present soft, normoactive bowel sounds and obese; Absent tenderness or distended *Routine Rectal Exam Rectal:: deferred *Routine Genitalia Exam Genitalia:: deferred *Routine Extremities Exam Extremities: Present edema (2+ to knees); Absent cyanosis or clubbing *Routine Skin Exam Skin: Present intact and warm; Absent rash *Routine Neurological Exam Neurological: Present alert, altered mental status and moving all extremities Comments: Will awaken to voice and knows her name and that she is at the hospital but then falls asleep very quickly. Not at baseline but mentation. GCS 14, E3, V5, M6 Assessment and Plan *Assessment and plan (1) Acute and chronic respiratory failure with hypercapnia: Status: Acute Category: Medical Code(s): J96.22 - Acute and chronic respiratory failure with hypercapnia (2) COPD exacerbation: Status: Acute Category: Medical Code(s): J44.1 - Chronic obstructive pulmonary disease with (acute) exacerbation (3) HTN (hypertension): Status: Acute Qualifiers: Hypertension type: primary hypertension Qualified Code(s): I10 - Essential (primary) hypertension Category: Medical Code(s): I10 - Essential (primary) hypertension (4) Opioid use disorder: Status: Acute Category: Medical Code(s): F11.90 - Opioid use, unspecified, uncomplicated (5) Cigarette smoker: Problem Comment: greater than 60 years, continues to smoke Status: Acute Category: Social Hx Code(s): F17.210 - Nicotine dependence, cigarettes, uncomplicated (6) Obesity: Status: Acute Qualifiers: Body mass index: BMI 34.0-34.9 Obesity classification: adult class 1 (BMI 30 - 34.9) Obesity type: due to excess calories Serious obesity comorbidity presence: without serious comorbidity Qualified Code(s): E66.09 - Other obesity due to excess calories; Z68.34 - Body mass index [BMI] 34.0-34.9, adult Category: Medical Code(s): E66.9 - Obesity, unspecified (7) Chronic respiratory failure with hypoxia: Status: Acute Category: Medical Code(s): J96.11 - Chronic respiratory failure with hypoxia (8) CAD (coronary artery disease): Status: Acute Qualifiers: Associated angina: without angina Coronary Disease-Associated Artery/Lesion type: [place] artery [place] vs. transplanted heart: [place] heart Qualified Code(s): I25.10 - Atherosclerotic heart disease of [place] coronary artery without angina pectoris Category: Medical Code(s): I25.10 - Atherosclerotic heart disease of [place] coronary artery without angina pectoris (9) Hypothyroidism: Status: Acute Qualifiers: Hypothyroidism type: acquired Qualified Code(s): E03.9 - Hypothyroidism, unspecified Category: Medical Code(s): E03.9 - Hypothyroidism, unspecified Plan 64-year-old female with multiple comorbidities on chronic oxygen who presents with hypercapnic respiratory failure. Initiated on BiPAP. Admitted to ICU for further management. Discussed case with ER physician, request admission for respiratory failure. I agreed to admit to the ICU. Continue BiPAP due to severe hypercarbia. Necessitating inpatient care. Patient's condition serious, risk for decompensation. If unable to protect airway, may necessitate intubation. Pulmonology consulted to assist with BiPAP management and respiratory failure. Problems addressed as follows: Acute on chronic hypercapnic respiratory failure Acute on chronic hypoxemic respiratory failure COPD NAY - Wears 2 L oxygen at baseline. Bicarb/carbon dioxide of 44 on CMP. Has metabolic compensation component to chronic respiratory acidosis. Acute worsening however with ABG showing pH 7.24, pCO2 91, pO2 71 on 4 L nasal cannula oxygen - BNP elevated at 850. Received 1 mg Bumex IV in the ED due to edema and BNP elevation along with pulmonary congestion and edema based on my review of chest x-ray - Goal sats greater 90%. BiPAP currently 22/8, rate of 20. Pulmonology consulted to assist with further management - Repeat blood gas ordered and pending for 2 hours after initiation of BiPAP - DuoNebs every 4 hours scheduled - Budesonide twice - Received dose of steroids with methylprednisolone 125 mg IV once in the ER. Will reevaluate in the morning for further steroid dose - White count 3.6, hemoglobin 11.1. Kidney function normal with BUN 11, creatinine 0.8. Potassium 4.0. Repeat CBC, CMP, magnesium ordered for the morning. - Of note patient's echo obtained in April 25 showed normal EF and normal BiV function. #CAD #Hypertension # Bradycardia Stenting to LAD 12/2022 moderate disease noted to circumflex and RCA Continue aspirin 81 mg daily Will hold home bisoprolol due to bradycardia. Reevaluate in the morning. EKG on admission shows sinus bradycardia. #Chronic pain: On oxycodone 1 tablet daily and gabapentin 800 mg 3 times a day. Will hold meds at this time due to sedative effect and patient's current sedated state. Monitor for withdrawal symptoms. #Obesity: Complicates all aspects of care Use disorder: Nicotine patch 21 mg daily as needed Full code Lovenox 40 mg subcu daily N.p.o. while on BiPAP
--- NOTE | 2025-04-05 15:44 | PC.NURSE ---
Notified house of admission
[2025-04-05 15:54] LABS: ABG HCO3 38.2 mmhg (22.0-26.0); ABG PH 7.24 mmol/L (7.35-7.45); ABG PO2 71.3 mmhg (80-100); ABG TCO2 41.0 mmhg (23-27)
[2025-04-05 15:58] LABS: Source Right Radial
--- NOTE | 2025-04-05 15:59 | PC.NURSE ---
report called to SERGO Richmond in the ICU.
[2025-04-05 16:01] LABS: ABG PCO2 91.3 mmhg (35.0-45.0)
--- NOTE | 2025-04-05 16:13 | PC.NURSE ---
Called Kimberly. patient's son and updated on POC and admission.
--- NOTE | 2025-04-05 16:14 | PC.NURSE ---
ICU staff came to ED to transfer patient upstairs, at bedside and patient is very lethargic but able to wake up and answer orientation questions. ER MD called hospitalist and updated on POC. ED MD wants to keep patient in ED for 20-30mins to monitor before we transfer upstairs. at bedside at this time, [id number].
--- NOTE | 2025-04-05 16:38 | PC.NURSE ---
Per patient's status change from step-down to ICU. Called SERGO Richmond in ICU for transport.
--- NOTE | 2025-04-05 16:55 | PC.NURSE ---
Report received from SERGO Olson. Patient brought to ICU room 262 at this time. Patient brought up via stretcher with Primary RN and Respiratory therapist. Continuation of care plan.
--- NOTE | 2025-04-05 16:55 | PC.NURSE ---
Patient brought to ICU room 262 at this time. Patient brought up via stretcher with Primary RN and Respiratory therapist. Continuation of care plan.
--- NOTE | 2025-04-05 18:20 | PC.NURSE ---
Respiratory therapist states they will consult Pulmonology. notified. Continuation of care plan.
[2025-04-05 18:22] LABS: Lactate Venous 0.8 mmol/L (0.4-2.0); VBG HCO3 43.3 mmol/L (23-30); VBG PH 7.33 mmol/L (7.31-7.41); VBG PO2 43.2 mmol/L (28-40)
[2025-04-05 18:26] LABS: VBG PCO2 84.0 mmol/L (35-51)
--- NOTE | 2025-04-05 18:29 | PC.NURSE ---
Respiratory therapist states they will consult Pulmonology. Continuation of care plan.
--- NOTE | 2025-04-05 18:30 | PC.NURSE ---
VBG pCO2 level of 84 per respiratory therapy. notified. No new order received. Continuation of care plan.
--- NOTE | 2025-04-05 19:30 | PC.NURSE ---
Patient bladder scanned at this time. Bladder scanner reads >738. notified. New orders received. Continuation of care plan.
[2025-04-05] MEDS: NICOTINE 21MG/24HR PATCH 21 MG TD (20:19)
[2025-04-05] MEDS: PANTOPRAZOLE 40MG VIAL 40 MG IV (20:19)
[2025-04-05 20:50] LABS: Microscopic, Urine URINE MICROSCOPIC (MICROSCOPIC)
[2025-04-05] MEDS: IPRATROPIUM/ALBUTEROL 3 ML NEB IH (21:23)
[2025-04-05 22:43] LABS: Bilirubin,Urine Negative (Negative); Color,Urine YELLOW (Yellow); Glucose,Urine (UA) Negative (Negative); Ketones,Urine Negative (Negative); Leukocyte Esterase,Urine Negative (Negative); PH,Urine 7.0 (5.0-8.5); Protein,Urine Negative (Negative); Specific Gravity, Urine 1.010 (1.005-1.030); Urobilinogen,Urine 0.2 EU/dl (0.2)
[2025-04-05 23:56] LABS: Bacteria,Urine Trace /lpf; Squamous Epithelial Cell,Urine Occasional #/hpf (0-5)
[2025-04-06] VITALS (74 sets, daily range): BP systolic 109–160; BP diastolic 52–75; PULSE 49–94; RESP 10–23; TEMP 36.5–37.3; O2SAT 88–100; BMI 32.2
[2025-04-06] MEDS: IPRATROPIUM/ALBUTEROL 3 ML NEB IH ×6 (01:43→23:56)
[2025-04-06] MEDS: BUDESONIDE 0.5MG/2ML NEB 0.5 MG IH ×2 (06:36→18:32)
[2025-04-06 06:37] LABS: Hematocrit 32.5 % (37.0-47.0); Immature Granulocytes % 0.3 %; Mean Corpuscular HGB Conc 30.5 g/dL (31.8-35.4); Mean Corpuscular Hemoglobin 29.5 pg (27.0-31.2); Mean Corpuscular Volume 96.7 fl (81-99); Nucleated Red Blood Cells % 0 %; Platelet Count 190 K/mm3 (142-424); Red Blood Count 3.36 M/mm3 (4.20-5.40); Red Cell Distribution Width-SD 44.3 fL; White Blood Count 3.6 K/mm3 (4.8-10.8)
[2025-04-06 06:51] LABS: Albumin Level 3.8 g/dl (3.5-5.0); Chloride 90 mmol/L (98-107)
[2025-04-06 06:52] LABS: Potassium 4.2 mmoL/L (3.5-5.1)
[2025-04-06 06:54] LABS: Alanine Aminotransferase 18 U/L (12-78); Albumin/Globulin Ratio 1.2 (1.1-1.8); Alkaline Phosphatase 70 U/L (38-126); Aspartate Amino Transferase 21 U/L (14-36); Bilirubin,Total 0.6 mg/dl (0.2-1.3); Calcium 9.2 mg/dl (8.4-10.2); Globulin 3.1 g/dL (1.3-3.2); Glucose 120 mg/dl (74-100); Sodium 138 mmol/L (136-145); Total Protein,Serum 6.9 g/dl (6.3-8.2)
[2025-04-06 06:55] LABS: Magnesium 1.8 mg/dl (1.6-2.3)
[2025-04-06 07:03] LABS: Anion Gap 8.2 mEq/L (5-15); Carbon Dioxide 44 mmol/L (22.0-30.0)
[2025-04-06 07:43] LABS: Lactate Venous 1.3 mmol/L (0.4-2.0); VBG HCO3 40.0 mmol/L (23-30); VBG PH 7.39 mmol/L (7.31-7.41); VBG PO2 39.3 mmol/L (28-40)
[2025-04-06 07:48] LABS: VBG PCO2 67.0 mmol/L (35-51)
--- NOTE | 2025-04-06 07:49 | PC.NURSE ---
Respiratory therapist notified Primary RN of following VBG levels: pH 7.39, pCO2 67, pO2 49.3, Bicarb 40. Respiratory therapist states they will notify . notified. Per patient can have a regular diet this morning and can be placed on NC. Continuation of care plan.
[2025-04-06] MEDS: PANTOPRAZOLE 40MG VIAL 40 MG IV ×2 (08:17→20:14)
[2025-04-06] MEDS: BUMETANIDE 1MG/4ML VIAL 1 MG IV ×2 (08:17→16:10)
[2025-04-06] MEDS: ASPIRIN 81MG CHEWABLE TABLET 81 MG PO (08:18)
--- NOTE | 2025-04-06 08:39 | EXP.ACUTE.PN ---
Subjective *Date: 04/06/25 *Time: 14:39 Interval history: More alert today. Interactive. Alert and oriented x 4. Requesting something to eat. No nausea or vomiting. Does states she feels constipated. On her baseline oxygen of 2 L. Morning blood gases normalized, off BiPAP at this time Medical Exam Vital signs and Labs for Last 24 Hours: Vital Signs Temp Pulse Pulse Resp BP BP Pulse Ox 04/06/25 08:01 98.6 F 59 L 20 125/59 L 99 04/06/25 08:00 98.6 F 54 L 20 97 04/06/25 08:00 54 L 04/06/25 07:45 98.6 F 56 L 18 96 04/06/25 07:40 52 L 98 04/06/25 07:30 98.4 F 49 L 15 98 04/06/25 07:15 98.4 F 51 L 20 98 04/06/25 07:00 98.4 F 52 L 20 137/58 L 94 L 04/06/25 07:00 04/06/25 06:59 53 L 04/06/25 06:59 59 L 04/06/25 06:59 04/06/25 06:00 98.2 F 58 L 15 154/70 H 97 04/06/25 05:01 98.2 F 51 L 13 93 L 04/06/25 05:01 98.2 F 51 L 13 143/61 H 93 L 04/06/25 05:00 04/06/25 04:01 98.1 F 59 L 10 L 155/75 H 97 04/06/25 04:00 60 93 L 04/06/25 04:00 60 04/06/25 03:00 04/06/25 03:00 98.2 F 56 L 13 133/56 L 94 L 04/06/25 03:00 98.2 F 56 L 13 94 L 04/06/25 02:45 98.2 F 57 L 19 91 L 04/06/25 02:30 98.2 F 57 L 20 91 L 04/06/25 02:15 98.2 F 57 L 20 92 L 04/06/25 02:00 98.2 F 49 L 17 146/62 H 100 04/06/25 01:44 51 L 04/06/25 01:44 56 L 04/06/25 01:44 04/06/25 01:01 98.1 F 57 L 14 94 L 04/06/25 01:01 98.1 F 58 L 14 144/70 H 94 L 04/06/25 01:00 04/06/25 01:00 98.1 F 58 L 14 94 L 04/06/25 00:00 97.7 F 52 L 15 109/52 L 97 04/06/25 00:00 60 98 04/06/25 00:00 60 04/05/25 23:01 97.9 F 50 L 20 107/53 L 96 04/05/25 23:00 04/05/25 22:00 97.9 F 52 L 20 131/62 96 04/05/25 21:57 04/05/25 21:23 48 L 04/05/25 21:23 51 L 04/05/25 21:01 51 L 16 107/53 L 90 L 04/05/25 20:51 04/05/25 20:01 47 L 20 134/62 94 L 04/05/25 20:00 51 L 90 L 04/05/25 20:00 50 L 04/05/25 19:01 49 L 20 119/63 94 L 04/05/25 19:00 51 L 18 92 L 04/05/25 18:31 52 L 18 122/60 90 L 04/05/25 18:22 04/05/25 18:20 04/05/25 17:56 51 L 20 106/55 L 90 L 04/05/25 17:40 52 L 99 04/05/25 17:08 52 L 20 167/79 H 90 L 04/05/25 17:01 68 04/05/25 17:00 04/05/25 16:30 47 L 18 140/72 97 04/05/25 16:01 52 L 14 124/57 L 96 04/05/25 15:56 98.6 F 51 L 20 172/75 H 04/05/25 15:39 04/05/25 15:31 54 L 10 L 172/75 H 98 04/05/25 15:01 60 13 162/75 H 91 L 04/05/25 14:31 61 14 163/77 H 92 L 04/05/25 14:01 53 L 11 L 143/81 H 95 04/05/25 13:36 90 L 04/05/25 13:31 11 L 169/68 H 95 04/05/25 13:30 98.2 F 55 L 20 160/79 H 90 L O2 Del Method O2 Flow Rate FiO2 04/06/25 08:01 Nasal Cannula 4 04/06/25 08:00 Nasal Cannula 4 04/06/25 08:00 04/06/25 07:45 BiPAP 04/06/25 07:40 BiPAP 04/06/25 07:30 BiPAP 04/06/25 07:15 BiPAP 04/06/25 07:00 BiPAP 04/06/25 07:00 BiPAP 04/06/25 06:59 04/06/25 06:59 04/06/25 06:59 45 04/06/25 06:00 BiPAP 45 04/06/25 05:01 04/06/25 05:01 Nasal Cannula 04/06/25 05:00 BiPAP 04/06/25 04:01 Room Air 04/06/25 04:00 BiPAP 45 04/06/25 04:00 04/06/25 03:00 BiPAP 04/06/25 03:00 BiPAP 20 04/06/25 03:00 04/06/25 02:45 04/06/25 02:30 04/06/25 02:15 04/06/25 02:00 04/06/25 01:44 04/06/25 01:44 04/06/25 01:44 45 04/06/25 01:01 04/06/25 01:01 Nasal Cannula 4 04/06/25 01:00 Nasal Cannula 4 04/06/25 01:00 04/06/25 00:00 BiPAP 45 04/06/25 00:00 BiPAP 45 04/06/25 00:00 04/05/25 23:01 BiPAP 20 04/05/25 23:00 BiPAP 04/05/25 22:00 BiPAP 20 04/05/25 21:57 45 04/05/25 21:23 04/05/25 21:23 04/05/25 21:01 04/05/25 20:51 BiPAP 04/05/25 20:01 BiPAP 20 04/05/25 20:00 BiPAP 45 04/05/25 20:00 04/05/25 19:01 BiPAP 04/05/25 19:00 BiPAP 04/05/25 18:31 BiPAP 04/05/25 18:22 BiPAP 04/05/25 18:20 45 04/05/25 17:56 BiPAP 04/05/25 17:40 BiPAP 04/05/25 17:08 BiPAP 04/05/25 17:01 04/05/25 17:00 BiPAP 04/05/25 16:30 BiPAP 04/05/25 16:01 04/05/25 15:56 BiPAP 04/05/25 15:39 45 04/05/25 15:31 04/05/25 15:01 04/05/25 14:31 04/05/25 14:01 04/05/25 13:36 Nasal Cannula 4 04/05/25 13:31 04/05/25 13:30 Nasal Cannula 4 Intake and Output 04/05/25 04/06/25 04/06/25 23:59 07:59 15:59 Output Total 800 / 800 50 / 50 Balance -800 / -800 -50 / -50 Output: Output, Urine Amount 800 / 800 50 / 50 Other: Number of Unmeasured Voids 0 0 Weight 82.599 kg Patient Weight 04/06/25 23:59 Weight 82.599 kg Laboratory Results - last 24 hr 04/05/25 13:25: WBC 3.6 L, RBC 3.84 L, Hgb 11.1 L, Hct 37.5, MCV 97.7, MCH 28.9, MCHC 29.6 L, RDW 12.7, Plt Count 174, MPV 9.3, Neut % (Auto) 64.7, Lymph % (Auto) 25.9, [place] % (Auto) 6.5, Eos % (Auto) 2.0, Baso % (Auto) 0.6, Neut # (Auto) 2.3, Lymph # (Auto) 0.9, [place] # (Auto) 0.2, Eos # (Auto) 0.1, Baso # (Auto) 0.0, PT 10.9, INR 0.98, D-Dimer 0.56 H, Sodium 142, Potassium 4.0, Chloride 91 L, Carbon Dioxide 44 H*, Anion Gap 11.0, BUN 11, Creatinine 0.80, Estimated Creat Clear 84, Estimated GFR 73, Est GFR ( Amer) 88, Glucose 132 H, Calcium 9.3, Magnesium 2.0, Total Bilirubin 0.9, AST 25, ALT 22, Alkaline Phosphatase 77, Troponin I < 0.01, NT-Pro-B Natriuret Pep 851 H, Total Protein 7.7, Albumin 4.5, Globulin 3.2, Albumin/Globulin Ratio 1.4, Lipase 61 04/05/25 13:28: VBG pH 7.29 L, VBG pCO2 94.2 H, VBG pO2 35.7, VBG HCO3 44.0 H, VBG Total CO2 46.9 H, VBG O2 Saturation 68.1, VBG Base Excess 17.3 H, VBG Lactic Acid 1.1 04/05/25 13:40: SARS-CoV-2 (PCR) Not detected, Influenza A Untype (PCR) Not detected, Influenza Type B (PCR) Not detected 04/05/25 15:35: Specimen Source Right radial, O2 % Bipap 22/8 45%, ABG pH 7.24 L*, ABG pCO2 91.3 H, ABG pO2 71.3 L, ABG HCO3 38.2 H, ABG Total CO2 41.0 H, ABG O2 Saturation 92, ABG Base Excess 10.8 H, Luis Test Patient unable 04/05/25 18:19: VBG pH 7.33, VBG pCO2 84.0 H, VBG pO2 43.2 H, VBG HCO3 43.3 H, VBG Total CO2 45.9 H, VBG O2 Saturation 77.9 H, VBG Base Excess 17.4 H, VBG Lactic Acid 0.8 04/05/25 19:50: Urine Color Yellow, Urine Appearance Clear, Urine pH 7.0, Ur Specific [place] 1.010, Urine Protein Negative, Urine Glucose (UA) Negative, Urine Ketones Negative, Urine Blood Negative, Urine Nitrate Negative, Urine Bilirubin Negative, Urine Urobilinogen 0.2, Ur Leukocyte Esterase Negative, Urine RBC None, Urine WBC None, Ur Squamous Epith Cells Occasional, Urine Bacteria Trace 04/06/25 06:07: WBC 3.6 L, RBC 3.36 L, Hct 32.5 L, MCV 96.7, MCH 29.5, MCHC 30.5 L, RDW 12.6, Plt Count 190, MPV 9.4, Neut % (Auto) 71.8, Lymph % (Auto) 21.2, [place] % (Auto) 6.4, Eos % (Auto) 0.0 L, Baso % (Auto) 0.3, Neut # (Auto) 2.6, Lymph # (Auto) 0.8, [place] # (Auto) 0.2, Eos # (Auto) 0.0, Baso # (Auto) 0.0, Sodium 138, Potassium 4.2, Chloride 90 L, Carbon Dioxide 44 H*, Anion Gap 8.2, Glucose 120 H, Calcium 9.2, Magnesium 1.8, Total Bilirubin 0.6, AST 21, ALT 18, Alkaline Phosphatase 70, Total Protein 6.9, Albumin 3.8 D, Globulin 3.1, Albumin/Globulin Ratio 1.2 04/06/25 07:38: VBG pH 7.39, VBG pCO2 67.0 H, VBG pO2 39.3, VBG HCO3 40.0 H, VBG Total CO2 42.1 H, VBG O2 Saturation 74.1 H, VBG Base Excess 15.1 H, VBG Lactic Acid 1.3 I & O for Labs for Last 24 Hours: Intake & Output 04/03/25 04/04/25 04/05/25 04/06/25 23:59 23:59 23:59 23:59 Output Total 800 / 800 50 / 50 Balance -800 / -800 -50 / -50 Weight 90.718 kg 82.599 kg Constitutional: Present mild distress, obese, chronically ill appearing and cooperative Head: Present atraumatic and normocephalic ENT: Present normal exam Comment:: Cushingoid facies Respiratory: Present prolonged expiratory phase and normal respiratory effort; Absent rhonchi, wheezes or crackles Cardiac: Present Reg Rate and Rhythm GI: Present soft, distention and normal bowel sounds; Absent tenderness Extremities: Present normal inspection, full ROM and edema (1+ the knees) Skin: Present intact; Absent erythema Comment:: Stasis dermatitis bilateral lower extremity Neuro: Present Grossly Intact, alert, awake, oriented x 3 and moves all extremities Assessment and Plan *Assessment and plan (1) Acute and chronic respiratory failure with hypercapnia: Status: Acute Category: Medical Code(s): J96.22 - Acute and chronic respiratory failure with hypercapnia (2) COPD exacerbation: Status: Acute Category: Medical Code(s): J44.1 - Chronic obstructive pulmonary disease with (acute) exacerbation (3) HTN (hypertension): Status: Acute Qualifiers: Hypertension type: primary hypertension Qualified Code(s): I10 - Essential (primary) hypertension Category: Medical Code(s): I10 - Essential (primary) hypertension (4) Opioid use disorder: Status: Acute Category: Medical Code(s): F11.90 - Opioid use, unspecified, uncomplicated (5) Cigarette smoker: Problem Comment: greater than 60 years, continues to smoke Status: Acute Category: Social Hx Code(s): F17.210 - Nicotine dependence, cigarettes, uncomplicated (6) Obesity: Status: Acute Qualifiers: Body mass index: BMI 34.0-34.9 Obesity classification: adult class 1 (BMI 30 - 34.9) Obesity type: due to excess calories Serious obesity comorbidity presence: without serious comorbidity Qualified Code(s): E66.09 - Other obesity due to excess calories; Z68.34 - Body mass index [BMI] 34.0-34.9, adult Category: Medical Code(s): E66.9 - Obesity, unspecified (7) Chronic respiratory failure with hypoxia: Status: Acute Category: Medical Code(s): J96.11 - Chronic respiratory failure with hypoxia (8) CAD (coronary artery disease): Status: Acute Qualifiers: Associated angina: without angina Coronary Disease-Associated Artery/Lesion type: [place] artery [place] vs. transplanted heart: [place] heart Qualified Code(s): I25.10 - Atherosclerotic heart disease of [place] coronary artery without angina pectoris Category: Medical Code(s): I25.10 - Atherosclerotic heart disease of [place] coronary artery without angina pectoris (9) Hypothyroidism: Status: Acute Qualifiers: Hypothyroidism type: acquired Qualified Code(s): E03.9 - Hypothyroidism, unspecified Category: Medical Code(s): E03.9 - Hypothyroidism, unspecified Plan 64-year-old female with multiple comorbidities on chronic oxygen who presents with hypercapnic respiratory failure. Initiated on BiPAP. Admitted to ICU for further management. Discussed case with ER physician, request admission for respiratory failure. I agreed to admit to the ICU. Continue BiPAP due to severe hypercarbia. Necessitating inpatient care. Patient's condition serious, risk for decompensation. If unable to protect airway, may necessitate intubation. Pulmonology consulted to assist with BiPAP management and respiratory failure. Improve mentation today with normalization of blood gas. Will trial on nasal cannula. Reevaluate BiPAP use this evening. Continues to require inpatient management. Problems addressed as follows: Acute on chronic hypercapnic respiratory failure Acute on chronic hypoxemic respiratory failure COPD NAY - Wears 2 L oxygen at baseline. Bicarb/carbon dioxide of 44 on CMP. Has metabolic compensation component to chronic respiratory acidosis. Acute worsening however with ABG showing pH 7.24, pCO2 91, pO2 71 on 4 L nasal cannula oxygen on arrival to the ER. -Morning blood gas today with pH of 7.39, pCO2 of 67, pO2 49 on VBG. Respiratory acidosis has resolved with BiPAP use overnight. -Still has edema, will administer Bumex 1 mg IV twice daily today. Kidney function stable with BUN 17 and creatinine 0.8 - Repeat CBC, CMP, magnesium ordered for the morning -Goal sats greater 90%, continue 2 L nasal cannula. Consider resumption of BiPAP this evening if showing increased confusion or repeat blood gas this afternoon shows worsening hypercarbia -Pulmonology consulted to assist with management of BiPAP -De-escalate DuoNebs every 6 hours scheduled - Budesonide twice daily -Administer prednisone 40 mg daily - White count 3.6, hemoglobin 9.9. - Of note patient's echo obtained in April 25 showed normal EF and normal BiV function. #CAD #Hypertension # Bradycardia Stenting to LAD 12/2022 moderate disease noted to circumflex and RCA Continue aspirin 81 mg daily Continue to hold bisoprolol today. Reevaluate administration in the morning. EKG on admission shows sinus bradycardia. #Chronic pain: On Suboxone 8/2 once daily and gabapentin 800 mg 3 times a day. Will resume Suboxone today. Resume gabapentin at half dose of 400 mg 3 times a day. Monitor for sedating effect. Consider increasing gabapentin in the morning #Obesity: Complicates all aspects of care Use disorder: Nicotine patch 21 mg daily as needed Full code Lovenox 40 mg subcu daily Regular diet
[2025-04-06 09:17] LABS: Blood Urea Nitrogen 17 mg/dl (7-17); Creatinine Clearance Estimated 76 mL/min (50-200); Creatinine,Serum 0.80 mg/dl (0.52-1.04); Estimated Glomerular Filt Rate 73 ml/min (>60); GFR (African American) 88 ML/MIN (>60)
[2025-04-06] MEDS: BUPRENORPHINE/NALOXONE 8MG/2MG ODT 1 EACH SL (09:31)
[2025-04-06] MEDS: GABAPENTIN 400MG CAPSULE 400 MG PO ×3 (09:31→20:14)
--- NOTE | 2025-04-06 11:18 | P.CONPHA_ITS ---
Pharmacy Intervention Comments: MEDICATION RECONCILIATION COMPLETED ON PATIENT USING EXTERNAL FILL HISTORY FROM PHARMACY AND SOHAM REPORT. PATIENT FILLS SUBOXONE AT [facility] IN [place]. WILL CLARIFY DOSE TOMORROW SINCE CLINIC IS CLOSED TODAY. -RICKY MONCADAD
--- NOTE | 2025-04-06 11:18 | HMH.PHAINT1 ---
Pharmacy Intervention Comments: MEDICATION RECONCILIATION COMPLETED ON PATIENT USING EXTERNAL FILL HISTORY FROM PHARMACY AND SOHAM REPORT. PATIENT FILLS SUBOXONE AT [facility] IN [place]. WILL CLARIFY DOSE TOMORROW SINCE CLINIC IS CLOSED TODAY. -RICKY MONCADAD
[2025-04-06 11:57] LABS: Hemoglobin 9.9 g/dL (12.2-16.2)
[2025-04-06] MEDS: POLYETHYLENE GLYCOL 3350 17 GM PACKET PO (14:26)
[2025-04-06] MEDS: METHYLPREDNISOLONE SOD SUCC 40MG VIAL 40 MG IV (16:10)
--- NOTE | 2025-04-06 18:02 | PC.NURSE ---
Hernandez Catheter removed at this time. Urinary catheter tubing intact. Patient tolerated well. Continuation of care plan.
[2025-04-06 18:24] LABS: VBG HCO3 41.5 mmol/L (23-30); VBG PH 7.43 mmol/L (7.31-7.41); VBG PO2 43.0 mmol/L (28-40)
[2025-04-06 18:25] LABS: Lactate Venous 2.9 mmol/L (0.4-2.0); VBG PCO2 63.6 mmol/L (35-51)
[2025-04-06] MEDS: SENNOSIDES 8.6MG/DOCUSATE 50MG TABLET 2 TAB PO (20:14)
[2025-04-06] MEDS: NICOTINE 21MG/24HR PATCH 21 MG TD (20:27)
[2025-04-06 22:24] LABS: Reflex Lactic Add Lactic Reflex
[2025-04-06 23:20] LABS: Lactic Acid Follow Up (RFLX 1) 2.4 mmol/L (0.7-2.1)
[2025-04-07] VITALS (14 sets, daily range): BP systolic 139–179; BP diastolic 64–88; PULSE 50–96; RESP 11–22; TEMP 36.6–36.8; O2SAT 89–100; BMI 32.4
[2025-04-07 00:52] LABS: Reflex Lactic (2 hrs) Add Lactic Reflex
[2025-04-07 01:37] LABS: Lactic Acid Follow up (RFLX 2) 1.5 mmol/L (0.7-2.1)
[2025-04-07] MEDS: BUDESONIDE 0.5MG/2ML NEB 0.5 MG IH (06:21)
[2025-04-07] MEDS: IPRATROPIUM/ALBUTEROL 3 ML NEB IH ×4 (06:22→23:05)
[2025-04-07 06:33] LABS: Hematocrit 33.1 % (37.0-47.0); Hemoglobin 10.3 g/dL (12.2-16.2); Immature Granulocytes % 0.2 %; Mean Corpuscular HGB Conc 31.1 g/dL (31.8-35.4); Mean Corpuscular Hemoglobin 29.4 pg (27.0-31.2); Mean Corpuscular Volume 94.6 fl (81-99); Nucleated Red Blood Cells % 0 %; Platelet Count 198 K/mm3 (142-424); Red Blood Count 3.50 M/mm3 (4.20-5.40); Red Cell Distribution Width-SD 44.0 fL; White Blood Count 5.0 K/mm3 (4.8-10.8)
[2025-04-07] MEDS: GABAPENTIN 400MG CAPSULE 400 MG PO ×3 (08:10→13:55)
[2025-04-07] MEDS: BUPRENORPHINE/NALOXONE 8MG/2MG ODT 1 EACH SL (08:10)
[2025-04-07] MEDS: ASPIRIN 81MG CHEWABLE TABLET 81 MG PO (08:10)
[2025-04-07] MEDS: SODIUM CHLORIDE 0.9% 10ML VIAL 10 ML IV (08:11)
[2025-04-07] MEDS: POLYETHYLENE GLYCOL 3350 17 GM PACKET PO (08:11)
[2025-04-07] MEDS: BUMETANIDE 1MG/4ML VIAL 1 MG IV ×2 (08:11→17:42)
[2025-04-07] MEDS: PANTOPRAZOLE 40MG VIAL 40 MG IV (08:11)
[2025-04-07 08:42] LABS: Albumin Level 3.7 g/dl (3.5-5.0); Chloride 88 mmol/L (98-107); Potassium 3.2 mmoL/L (3.5-5.1); Sodium 138 mmol/L (136-145)
[2025-04-07 08:44] LABS: Alanine Aminotransferase 17 U/L (12-78); Aspartate Amino Transferase 20 U/L (14-36); Blood Urea Nitrogen 16 mg/dl (7-17); Creatinine Clearance Estimated 77 mL/min (50-200); Creatinine,Serum 0.80 mg/dl (0.52-1.04); Estimated Glomerular Filt Rate 73 ml/min (>60); GFR (African American) 88 ML/MIN (>60)
[2025-04-07 08:45] LABS: Albumin/Globulin Ratio 1.2 (1.1-1.8); Alkaline Phosphatase 74 U/L (38-126); Bilirubin,Total 0.4 mg/dl (0.2-1.3); Calcium 8.9 mg/dl (8.4-10.2); Globulin 3.1 g/dL (1.3-3.2); Glucose 116 mg/dl (74-100); Magnesium 2.0 mg/dl (1.6-2.3); Total Protein,Serum 6.8 g/dl (6.3-8.2)
[2025-04-07 09:04] LABS: Anion Gap 7.2 mEq/L (5-15); Carbon Dioxide 46 mmol/L (22.0-30.0)
--- NOTE | 2025-04-07 09:17 | CA_ITS ---
APPROVED REPORT EXAM: Comprehensive 2D, Doppler, and color-flow Echocardiogram Rn Infusion: Margareth Zamora RT(R) Ht: 5 ft 2 in Wt: 183lbs BSA: 1.84 BP: 147/73 mmHg Indications: heart failure, CAD, smoker, hypertension, COPD 2D Dimensions LA Volume 29.00 mL LA Volume Index 15.76 mL/m2 (M/F) 16-34 EF AP4 61.90 % GL Strain -16.1 % M-Mode Dimensions LA Diam 3.54 cm (1.9-4.0) LV Diastology E Decel Time 193 (160-240 msec) E/A Ratio 0.83 Mitral Valve MV A Velocity 114.0 (40-130 cm/s) E/A Ratio 0.83 Left Ventricle The left ventricle is normal size. Left ventricular systolic function is normal. The left ventricular ejection fraction is within the normal range. There is increased left ventricular wall thickness. There is normal LV segmental wall motion. The left ventricular diastolic function is indeterminate. LVEF is 55%. Right Ventricle The right ventricle is mildly dilated. The right ventricular systolic function is normal. Atria The left atrium is mildly dilated. The right atrium is mildly dilated. There is no color Doppler evidence of interatrial shunt. Aortic Valve The aortic valve is mildly thickened. There is no hemodynamically significant aortic valvular stenosis. No aortic regurgitation is present. Mitral Valve The mitral valve is normal in structure. No evidence of mitral valve stenosis. Mild mitral regurgitation is present. Tricuspid Valve The tricuspid valve leaflets are thin and pliable. Trace tricuspid regurgitation. There is insufficient TR jet to estimate RVSP. Pulmonic Valve The pulmonary valve is grossly normal in structure. Trace pulmonic valve regurgitation is present. Great Vessels The aortic root is normal in size. IVC is normal in size and collapses >50% with inspiration. Pericardium Trivial, anterior pericardial effusion is present. No echo indications of tamponade. Other Information Study Quality: Technically Difficult Conclusion Normal biventricular systolic function. Mild RV dilation. Mild biatrial dilation. Mild MR. Trivial, anterior pericardial effusion is present. No echo indications of tamponade. Electronically signed by : Daija Jaime MD 04/07/2025 12:49:07
--- NOTE | 2025-04-07 09:44 | EXP.PULM.CON ---
History of Present Illness History of present illness: Ms. Cummings is a 63-year-old male greater than [id number] smoking history, exertional dyspnea COPD presented today with worsening respiratory distress and pulmonary was called for further evaluation and management. [facility] Disclaimer: The information contained in this section may have been updated after the patient was seen, as this information can be updated by other users. Medical History HTN (hypertension) Peripheral neuropathy Opioid use disorder Cigarette smoker Loud snoring Encounter for screening for malignant neoplasm of lung History of smoking 30 or more pack years Cervical cancer screening Current every day vaping Acute exacerbation of chronic obstructive pulmonary disease Acute exacerbation of chronic obstructive pulmonary disease Chronic dyspnea Hypoxemia Vitamin D deficiency Degenerative joint disease of knee Lumbar radicular pain Tobacco use Dyspnea NAY (obstructive sleep apnea) HLD (hyperlipidemia) CAD (coronary artery disease) Bilateral lower extremity edema Anxiety COPD (chronic obstructive pulmonary disease) Edema Abnormal result of cardiovascular function study Chronic cough Allergies History of cataract History of narcotic addiction Arthritis Anxiety GERD (gastroesophageal reflux disease) COPD (chronic obstructive pulmonary disease) Surgical History History of heart artery stent History of cataract surgery S/P bilateral breast lumpectomy S/P carpal tunnel release Family History Mother Diabetes Sister Diabetes Mother Hypertension Sister Hypertension Mother Coronary artery disease Sister Breast cancer Social History Smoking Status: Current every day smoker tobacco type: e-cigarettes alcohol intake: never substance use type: former substance user, sedatives and painkillers current occupational status: unemployed Travel in the last 8 weeks?: None caffeine: Yes Have you lived/traveled outside [place] in past 30 days?: No Contact w/someone who lives/traveled outside [place] past 30 days?: No Exposure to someone with infectious disease in past 14 days?: No Do you have a fever (greater than 100.4 F or 38 C)?: No Have you tested positive for COVID-19?: No Exposed to someone with COVID-19 in past 14 days?: No Do you have a sore throat?: No Do you have a cough?: No Do you have any weakness?: No Do you have any diarrhea?: No Are you experiencing any unusual bleeding?: No Do you have any muscle aches/pain?: No Do you have any abdominal pain?: No Are you experiencing loss of taste or smell?: No Review of Systems Constitutional Constitutional: Reports anorexia, Reports body ache(s) and Reports fatigue Eyes Eyes: Denies eye discharge, Denies dry eyes, Denies irritation and Denies itchy eyes ENT Ears, Nose, Mouth, and Throat: Denies epistaxis, Denies facial pain, Denies lip swelling and Denies throat swelling *Cardiovascular Cardiovascular: Reports dyspnea, Reports dyspnea on exertion and Reports orthopnea *Respiratory Respiratory: Denies change in phlegm color, Reports chest congestion, Reports cough, Reports dyspnea, Reports dyspnea on exertion, Reports excessive phlegm production, Denies hemoptysis, Denies pain on inspiration, Denies pain with cough and Reports wheezing *Gastrointestinal Gastrointestinal: Denies abdominal pain, Denies belching and Denies cramping *Musculoskeletal Musculoskeletal: Reports back pain, Reports myalgias and Reports other (No small joint swelling or Pain) Psychiatric Psychiatric: Denies homicidal ideation and Denies suicidal ideation Endocrine Endocrine: Reports fatigue and Denies heat intolerance Hematologic/Lymphatic Hematologic/Lymphatic: Denies easy bleeding and Denies lymphadenopathy Allergic/Immunologic Allergic/Immunologic: Denies itchy eyes, Denies lip swelling, Denies throat swelling and Reports wheezing Pulmonology Exam Inpatient Vital signs and Labs for Last 24 Hours: Temp Pulse Resp BP Pulse Ox O2 Del Method O2 Flow Rate 97.9 F 80 13 144/68 H 95 Nasal Cannula 3 04/07/25 08:00 04/07/25 08:00 04/07/25 08:00 04/07/25 08:00 04/07/25 08:00 04/07/25 09:00 04/07/25 09:00 FiO2 45 04/06/25 06:59 Laboratory Results - last 24 hr 04/06/25 06:07: Hgb 9.9 L D 04/06/25 18:18: VBG pH 7.43 H, VBG pCO2 63.6 H, VBG pO2 43.0 H, VBG HCO3 41.5 H, VBG Total CO2 43.4 H, VBG O2 Saturation 81.2 H, VBG Base Excess 17.2 H, VBG Lactic Acid 2.9 H 04/06/25 22:49: Lactate 2.4 H 04/07/25 01:17: Lactate 1.5 04/07/25 05:46: WBC 5.0 D, RBC 3.50 L, Hgb 10.3 L, Hct 33.1 L, MCV 94.6, MCH 29.4, MCHC 31.1 L, RDW 12.8, Plt Count 198, MPV 9.4, Neut % (Auto) 67.8, Lymph % (Auto) 24.0, Tillman % (Auto) 7.8, Eos % (Auto) 0.0 L, Baso % (Auto) 0.2, Neut # (Auto) 3.4, Lymph # (Auto) 1.2, Tillman # (Auto) 0.4, Eos # (Auto) 0.0, Baso # (Auto) 0.0, Sodium 138, Potassium 3.2 L D, Chloride 88 L, Carbon Dioxide 46 H*, Anion Gap 7.2, BUN 16, Creatinine 0.80, Estimated Creat Clear 77, Estimated GFR 73, Est GFR ( Amer) 88, Glucose 116 H, Calcium 8.9, Magnesium 2.0 D, Total Bilirubin 0.4, AST 20, ALT 17, Alkaline Phosphatase 74, Total Protein 6.8, Albumin 3.7, Globulin 3.1, Albumin/Globulin Ratio 1.2 I & O for Labs for Last 24 Hours: Intake & Output 04/04/25 04/05/25 04/06/25 04/07/25 23:59 23:59 23:59 23:59 Intake Total 1440 / 1440 Output Total 800 / 800 2820 / 2820 600 / 600 Balance -800 / -800 -1380 / -1380 -600 / -600 Weight 200 lb 182 lb 1.6 oz 183 lb 3.2 oz Microbiology Reports for the Last 24 Hours: Microbiology 04/05/25 17:00 Anus CRE Surveillance Culture - Final Negative Constitutional: Present mild distress Head: Present normocephalic and atraumatic ENT: Present normal exam, normal oropharynx and mucous membranes moist Neck: Present normal inspection and full ROM Respiratory: Present prolonged expiratory phase, respiratory distress, diminished air movement and able to speak in complete sentences; Absent wheezes Cardiac: Present S1/S2, Tachycardia and radial pulses present GI: Present soft and distention; Absent tenderness or guarding Rectal (female): Present deferred (female): Present deferred Skin: Present intact; Absent cyanosis or jaundice Neuro: Present alert, awake and oriented x 3 Extremities: Present normal inspection; Absent clubbing or cyanosis Psychiatric: Present normal affect and cooperative Meds Home Medications and Allergies Home Medications ?Medication ?Instructions ?Recorded ?Confirmed ?Type aspirin 81 mg chewable tablet 81 mg PO DAILY #90 tabs 04/30/24 04/05/25 Rx buprenorphine 8 mg-naloxone 2 mg 1 tab sublingual DAILY 05/01/24 04/05/25 History sublingual tablet furosemide 40 mg tablet 40 mg PO DAILY PRN Leg swelling 11/13/24 04/05/25 Rx #30 tabs gabapentin 800 mg tablet 800 mg PO TID #90 tabs 02/07/25 04/05/25 Rx bisoprolol fumarate 10 mg tablet 10 mg PO DAILY #30 tabs 02/11/25 04/05/25 Rx nicotine 14 mg/24 hr daily 1 patch transdermal DAILY #28 ea 03/13/25 04/06/25 Rx transdermal patch albuterol sulfate 90 mcg/actuation 2 puff inhalation Q6HP PRN 04/06/25 04/06/25 History aerosol inhaler (Ventolin HFA) Shortness Of Breath amlodipine 5 mg tablet 5 mg PO DAILY 04/06/25 04/06/25 History hydroxyzine HCl 25 mg tablet 25 mg PO QIDP PRN Anxiety 04/06/25 04/06/25 History New Prescriptions to Start Prescriptions: Allergies Allergy/AdvReac Type Severity Reaction Status Date / Time No Known Allergies Allergy Verified 03/13/25 10:11 Results Laboratory Findings 04/07/25 05:46 04/07/25 05:46 ABG ABG pH 7.24 mmol/L (7.35-7.45) L* 04/05/25 15:35 ABG pCO2 91.3 mmhg (35.0-45.0) H 04/05/25 15:35 ABG pO2 71.3 mmhg (80-100) L 04/05/25 15:35 ABG O2 Saturation 92 % (90-100) 04/05/25 15:35 PT/INR, D-dimer PT 10.9 seconds (10.1-12.5) 04/05/25 13:25 INR 0.98 (0.9-1.1) 04/05/25 13:25 D-Dimer 0.56 ug/mL (0.0-0.5) H 04/05/25 13:25 Abnormal lab findings: Abnormal Labs 04/05/25 04/05/25 04/05/25 13:25 13:28 15:35 WBC 3.6 L RBC 3.84 L Hgb 11.1 L Hct MCHC 29.6 L Eos % (Auto) D-Dimer 0.56 H ABG pH 7.24 L* ABG pCO2 91.3 H ABG pO2 71.3 L ABG HCO3 38.2 H ABG Total CO2 41.0 H ABG Base Excess 10.8 H VBG pH 7.29 L VBG pCO2 94.2 H VBG pO2 VBG HCO3 44.0 H VBG Total CO2 46.9 H VBG O2 Saturation VBG Base Excess 17.3 H VBG Lactic Acid Potassium Chloride 91 L Carbon Dioxide 44 H* Glucose 132 H Lactate NT-Pro-B Natriuret Pep 851 H 04/05/25 04/06/25 04/06/25 18:19 06:07 07:38 WBC 3.6 L RBC 3.36 L Hgb 9.9 L D Hct 32.5 L MCHC 30.5 L Eos % (Auto) 0.0 L D-Dimer ABG pH ABG pCO2 ABG pO2 ABG HCO3 ABG Total CO2 ABG Base Excess VBG pH VBG pCO2 84.0 H 67.0 H VBG pO2 43.2 H VBG HCO3 43.3 H 40.0 H VBG Total CO2 45.9 H 42.1 H VBG O2 Saturation 77.9 H 74.1 H VBG Base Excess 17.4 H 15.1 H VBG Lactic Acid Potassium Chloride 90 L Carbon Dioxide 44 H* Glucose 120 H Lactate NT-Pro-B Natriuret Pep 04/06/25 04/06/25 04/07/25 18:18 22:49 05:46 WBC RBC 3.50 L Hgb 10.3 L Hct 33.1 L MCHC 31.1 L Eos % (Auto) 0.0 L D-Dimer ABG pH ABG pCO2 ABG pO2 ABG HCO3 ABG Total CO2 ABG Base Excess VBG pH 7.43 H VBG pCO2 63.6 H VBG pO2 43.0 H VBG HCO3 41.5 H VBG Total CO2 43.4 H VBG O2 Saturation 81.2 H VBG Base Excess 17.2 H VBG Lactic Acid 2.9 H Potassium 3.2 L D Chloride 88 L Carbon Dioxide 46 H* Glucose 116 H Lactate 2.4 H NT-Pro-B Natriuret Pep Assessment and Plan *Assessment and plan (1) Acute and chronic respiratory failure with hypercapnia: Status: Acute Category: Medical Code(s): J96.22 - Acute and chronic respiratory failure with hypercapnia (2) COPD exacerbation: Status: Acute Category: Medical Code(s): J44.1 - Chronic obstructive pulmonary disease with (acute) exacerbation Plan Ms. Cummings is a 63-year-old male greater than [id number] smoking history, exertional dyspnea COPD presented today with worsening respiratory distress and pulmonary was called for further evaluation and management. Afebrile. Hemodynamically stable. Leukopenia, improving. Flu and COVID-19 PCR panel negative. ABG upon admission hypercarbic respiratory failure with pH of 7.24 and pCO2 of 91.3. Subsequent blood gases showed improvement after using noninvasive ventilatory therapy. Chest x-ray upon admission and subsequent chest x-ray did not show any evidence of consolidative changes. No pleural effusions appreciated. Patient has been receiving nebulization therapies steroids and diuretics. On examination respiratory distress. Minimal wheezing noted. Saturating 93% on 3 L nasal oxygen supplementation. Patient using 2 to 3 L oxygen supplementation at baseline. Venous blood gas palpation wean off noninvasive ventilator therapy overnight did not show any worsening hypercarbic respiratory failure. Continue to show chronic hypercarbia. Plan: Trelegy 100 inhaler along with DuoNebs 4 times daily as needed Prednisone 40 mg daily to complete a total of 5-day course Continue oxygen supplementation to maintain O2 saturation below 40% and above. 6-minute walk testing prior to discharge No need for initiating noninvasive ventilator therapy upon discharge Volume optimization as per primary team and cardiology #Patient did undergo LDCT and PFT as an outpatient basis. Will follow-up
[2025-04-07] MEDS: POTASSIUM CHLORIDE 10MEQ TABLET.ER 40 MEQ PO ×2 (09:49→13:18)
--- NOTE | 2025-04-07 10:27 | [facility].PTWOUND ---
Rehab Wound Evaluation Rehab IP Wound Evaluation Start: 04/05/25 20:50 Freq: ONCE Status: Active Protocol: Document 04/07/25 10:24 LIS (Rec: 04/07/25 10:27 LIS [id number]) Rehab PT Wound Assessment Subjective Subjective 64 yowf adm to [facility] with acute on chronic resp failure. PT acute wound consult received due to low nereida scale score. Pt has no current wounds noted. Plan/Recommendation Comment Pt without wounds noted at this time. No current necessary acute PT wound interventions necessary. PHYSICIAN CERTIFICATION: I certify the specified therapy services for Mariella Cummings are required, authorized, and reviewed every 30 days.
[2025-04-07 10:32] LABS: VBG HCO3 43.5 mmol/L (23-30); VBG PH 7.46 mmol/L (7.31-7.41); VBG PO2 34.8 mmol/L (28-40)
[2025-04-07 10:35] LABS: Lactate Venous 2.2 mmol/L (0.4-2.0); VBG PCO2 63.0 mmol/L (35-51)
[2025-04-07 14:35] LABS: Reflex Lactic Add Lactic Reflex
[2025-04-07 15:13] LABS: Lactic Acid Follow Up (RFLX 1) 2.9 mmol/L (0.7-2.1)
--- NOTE | 2025-04-07 15:47 | PC.NURSE ---
pt left unit to go to med surg floor with ICU staff
[2025-04-07 16:56] LABS: Reflex Lactic (2 hrs) Add Lactic Reflex
--- NOTE | 2025-04-07 17:40 | PC.NURSE ---
Pt is sitting up on side of bed eating dinner. Currently on 3.5 L NC. No concerns at this time. Call light within reach.
[2025-04-07 18:18] LABS: Lactic Acid Follow up (RFLX 2) 2.7 mmol/L (0.7-2.1)
[2025-04-07] MEDS: SENNOSIDES 8.6MG/DOCUSATE 50MG TABLET 2 TAB PO (20:51)
[2025-04-07] MEDS: GABAPENTIN 400MG CAPSULE 800 MG PO (20:51)
[2025-04-07] MEDS: PANTOPRAZOLE 40MG TABLET 40 MG PO (20:51)
--- NOTE | 2025-04-07 21:59 | EXP.PN ---
Subjective *Date: 04/07/25 *Time: 21:59 Interval history: Better today, but continues to have residual airway. Desaturated on walk test today. Continue DuoNebs, Trelegy and reevaluate tomorrow. Exam Data for Last 24 hours Vital signs and Labs for Last 24 Hours: Temp Pulse Resp BP Pulse Ox O2 Del Method O2 Flow Rate 98.1 F 85 16 179/88 H 97 Nasal Cannula 3 04/07/25 20:05 04/07/25 20:05 04/07/25 20:05 04/07/25 20:05 04/07/25 20:05 04/07/25 21:00 04/07/25 21:00 FiO2 45 04/06/25 06:59 Laboratory Results - last 24 hr 04/06/25 22:49: Lactate 2.4 H 04/07/25 01:17: Lactate 1.5 04/07/25 05:46: WBC 5.0 D, RBC 3.50 L, Hgb 10.3 L, Hct 33.1 L, MCV 94.6, MCH 29.4, MCHC 31.1 L, RDW 12.8, Plt Count 198, MPV 9.4, Neut % (Auto) 67.8, Lymph % (Auto) 24.0, Floyd % (Auto) 7.8, Eos % (Auto) 0.0 L, Baso % (Auto) 0.2, Neut # (Auto) 3.4, Lymph # (Auto) 1.2, Floyd # (Auto) 0.4, Eos # (Auto) 0.0, Baso # (Auto) 0.0, Sodium 138, Potassium 3.2 L D, Chloride 88 L, Carbon Dioxide 46 H*, Anion Gap 7.2, BUN 16, Creatinine 0.80, Estimated Creat Clear 77, Estimated GFR 73, Est GFR ( Amer) 88, Glucose 116 H, Calcium 8.9, Magnesium 2.0 D, Total Bilirubin 0.4, AST 20, ALT 17, Alkaline Phosphatase 74, Total Protein 6.8, Albumin 3.7, Globulin 3.1, Albumin/Globulin Ratio 1.2 04/07/25 10:30: VBG pH 7.46 H, VBG pCO2 63.0 H, VBG pO2 34.8, VBG HCO3 43.5 H, VBG Total CO2 45.4 H, VBG O2 Saturation 67.8, VBG Base Excess 19.6 H, VBG Lactic Acid 2.2 H 04/07/25 14:50: Lactate 2.9 H 04/07/25 17:32: Lactate 2.7 H I & O for Last 24 hours: Intake & Output 04/04/25 04/05/25 04/06/25 04/07/25 23:59 23:59 23:59 23:59 Intake Total 1440 / 1440 462 / 462 Output Total 800 / 800 2820 / 2820 2800 / 2800 Balance -800 / -800 -1380 / -1380 -2338 / -2338 Weight 90.718 kg 82.599 kg 83.098 kg Microbiology Reports for the Last 24 Hours: Microbiology 04/05/25 17:00 Anus CRE Surveillance Culture - Final Negative Constitutional Constitutional: no acute distress *Routine HEENT Exam Head: Present normocephalic Eye: Present EOMI and PERRL ENT: Present mucous membranes moist *Routine Neck Exam Neck: Present supple; Absent lymphadenopathy *Routine Respiratory Exam Respiratory: Present diminished air movement; Absent CTA bilaterally *Routine Cardiovascular Exam Cardiovascular: Present RRR *Routine Abdominal Exam Abdominal: Present soft and normoactive bowel sounds; Absent tenderness *Routine Extremities Exam Extremities: Absent cyanosis, clubbing or edema *Routine Skin Exam Skin: Present warm; Absent rash *Routine Neurological Exam Neurological: Present alert and oriented X3 Assessment and Plan *Assessment and plan (1) Acute and chronic respiratory failure with hypercapnia: Status: Acute Category: Medical Code(s): J96.22 - Acute and chronic respiratory failure with hypercapnia (2) COPD exacerbation: Status: Acute Category: Medical Code(s): J44.1 - Chronic obstructive pulmonary disease with (acute) exacerbation (3) HTN (hypertension): Status: Acute Qualifiers: Hypertension type: primary hypertension Qualified Code(s): I10 - Essential (primary) hypertension Category: Medical Code(s): I10 - Essential (primary) hypertension (4) Opioid use disorder: Status: Acute Category: Medical Code(s): F11.90 - Opioid use, unspecified, uncomplicated (5) Cigarette smoker: Problem Comment: greater than 60 years, continues to smoke Status: Acute Category: Social Hx Code(s): F17.210 - Nicotine dependence, cigarettes, uncomplicated (6) Obesity: Status: Acute Qualifiers: Obesity type: due to excess calories Obesity classification: adult class 1 (BMI 30 - 34.9) Serious obesity comorbidity presence: without serious comorbidity Body mass index: BMI 34.0-34.9 Qualified Code(s): E66.09 - Other obesity due to excess calories; Z68.34 - Body mass index [BMI] 34.0-34.9, adult Category: Medical Code(s): E66.9 - Obesity, unspecified (7) Chronic respiratory failure with hypoxia: Status: Acute Category: Medical Code(s): J96.11 - Chronic respiratory failure with hypoxia (8) CAD (coronary artery disease): Status: Acute Qualifiers: Coronary Disease-Associated Artery/Lesion type: [place] artery [place] vs. transplanted heart: [place] heart Associated angina: without angina Qualified Code(s): I25.10 - Atherosclerotic heart disease of [place] coronary artery without angina pectoris Category: Medical Code(s): I25.10 - Atherosclerotic heart disease of [place] coronary artery without angina pectoris (9) Hypothyroidism: Status: Acute Qualifiers: Hypothyroidism type: acquired Qualified Code(s): E03.9 - Hypothyroidism, unspecified Category: Medical Code(s): E03.9 - Hypothyroidism, unspecified Plan 64-year-old female with multiple comorbidities on chronic oxygen who presents with hypercapnic respiratory failure. Initiated on BiPAP. Admitted to ICU for further management. Discussed case with ER physician, request admission for respiratory failure. I agreed to admit to the ICU. Continue BiPAP due to severe hypercarbia. Necessitating inpatient care. Patient's condition serious, risk for decompensation. If unable to protect airway, may necessitate intubation. Pulmonology consulted to assist with BiPAP management and respiratory failure. Acute on chronic hypercapnic respiratory failure Acute on chronic hypoxemic respiratory failure COPD NAY - Presented with shortness of breath, initial VBG showing acute hypercapnia necessitating BiPAP therapy. Weaned to 3 L nasal cannula. ? Continues to have restricted airway, desaturated on walk test with 3 to 6 L nasal cannula. ? Continue DuoNebs every 6 hours. ? Discussed with pulmonology, started Trelegy 100. - Continue prednisone 40 mg daily. ?Plan to repeat test in the morning. #CAD #Hypertension # Bradycardia Stenting to LAD 12/2022 moderate disease noted to circumflex and RCA Continue aspirin 81 mg daily Continue to hold bisoprolol today. Reevaluate administration in the morning. EKG on admission shows sinus bradycardia. #Chronic pain: On Suboxone 8/2 once daily and gabapentin 800 mg 3 times a day. Will resume Suboxone today. Patient having neuropathic pain today, increase gabapentin back to home dosing. #Obesity: Complicates all aspects of care Use disorder: Nicotine patch 21 mg daily as needed Full code Lovenox 40 mg subcu daily Regular diet
[2025-04-07] MEDS: NICOTINE 21MG/24HR PATCH 21 MG TD (22:18)
[2025-04-08] VITALS (9 sets, daily range): BP systolic 131–195; BP diastolic 69–98; PULSE 58–100; RESP 16–18; TEMP 36.6–36.8; O2SAT 92–98; BMI 32.1
--- NOTE | 2025-04-08 05:40 | PC.NURSE ---
Pt A&OX4 and has tolerated 3L nasal cannula. She has ambulated to the bathroom independently. No needs at this time, call light within reach.
[2025-04-08] MEDS: FLUTICASONE/UMECLIDIN/VILANTER 100/62.5/25MCG INHALER 1 PUFF IH (06:08)
[2025-04-08] MEDS: IPRATROPIUM/ALBUTEROL 3 ML NEB IH ×2 (06:08→11:46)
[2025-04-08 06:22] LABS: Hematocrit 34.6 % (37.0-47.0); Hemoglobin 10.6 g/dL (12.2-16.2); Immature Granulocytes % 0.2 %; Mean Corpuscular HGB Conc 30.6 g/dL (31.8-35.4); Mean Corpuscular Hemoglobin 29.0 pg (27.0-31.2); Mean Corpuscular Volume 94.8 fl (81-99); Nucleated Red Blood Cells % 0 %; Platelet Count 199 K/mm3 (142-424); Red Blood Count 3.65 M/mm3 (4.20-5.40); Red Cell Distribution Width-SD 44.7 fL; White Blood Count 5.8 K/mm3 (4.8-10.8)
[2025-04-08 06:44] LABS: Albumin Level 3.9 g/dl (3.5-5.0); Chloride 88 mmol/L (98-107); Potassium 3.4 mmoL/L (3.5-5.1); Sodium 139 mmol/L (136-145)
[2025-04-08 06:47] LABS: Alanine Aminotransferase 17 U/L (12-78); Albumin/Globulin Ratio 1.2 (1.1-1.8); Alkaline Phosphatase 71 U/L (38-126); Aspartate Amino Transferase 20 U/L (14-36); Bilirubin,Total 0.3 mg/dl (0.2-1.3); Blood Urea Nitrogen 12 mg/dl (7-17); Creatinine Clearance Estimated 76 mL/min (50-200); Creatinine,Serum 0.80 mg/dl (0.52-1.04); Estimated Glomerular Filt Rate 73 ml/min (>60); GFR (African American) 88 ML/MIN (>60); Globulin 3.2 g/dL (1.3-3.2); Total Protein,Serum 7.1 g/dl (6.3-8.2)
[2025-04-08 06:48] LABS: Calcium 8.8 mg/dl (8.4-10.2); Glucose 108 mg/dl (74-100)
[2025-04-08 06:56] LABS: Anion Gap 8.4 mEq/L (5-15); Carbon Dioxide 46 mmol/L (22.0-30.0)
[2025-04-08] MEDS: POTASSIUM CHLORIDE 20MEQ TAB 40 MEQ PO ×2 (08:45→13:48)
[2025-04-08] MEDS: GABAPENTIN 400MG CAPSULE 800 MG PO (08:45)
[2025-04-08] MEDS: BUPRENORPHINE/NALOXONE 8MG/2MG ODT 1 EACH SL (08:45)
[2025-04-08] MEDS: ASPIRIN 81MG CHEWABLE TABLET 81 MG PO (08:45)
[2025-04-08] MEDS: POLYETHYLENE GLYCOL 3350 17 GM PACKET PO (08:45)
[2025-04-08] MEDS: PANTOPRAZOLE 40MG TABLET 40 MG PO (08:45)
[2025-04-08] MEDS: BUMETANIDE 1MG/4ML VIAL 1 MG IV (08:46)
--- NOTE | 2025-04-08 09:34 | EXP.PULM.PN ---
Subjective *Date: 04/08/25 *Time: 11:00 Interval history: No acute respiratory vents overnight. Patient admits continued improvement in her respiratory symptoms. Pulmonology Exam Inpatient Vital signs and Labs for Last 24 Hours: Temp Pulse Resp BP Pulse Ox O2 Del Method O2 Flow Rate 98.2 F 85 18 143/69 H 98 Nasal Cannula 3 04/08/25 07:46 04/08/25 07:46 04/08/25 07:46 04/08/25 07:46 04/08/25 07:46 04/08/25 07:46 04/08/25 07:46 FiO2 32 04/08/25 06:09 Laboratory Results - last 24 hr 04/07/25 10:30: VBG pH 7.46 H, VBG pCO2 63.0 H, VBG pO2 34.8, VBG HCO3 43.5 H, VBG Total CO2 45.4 H, VBG O2 Saturation 67.8, VBG Base Excess 19.6 H, VBG Lactic Acid 2.2 H 04/07/25 14:50: Lactate 2.9 H 04/07/25 17:32: Lactate 2.7 H 04/08/25 06:04: WBC 5.8, RBC 3.65 L, Hgb 10.6 L, Hct 34.6 L, MCV 94.8, MCH 29.0, MCHC 30.6 L, RDW 12.8, Plt Count 199, MPV 9.2, Neut % (Auto) 56.0, Lymph % (Auto) 35.9, [place] % (Auto) 7.4, Eos % (Auto) 0.3, Baso % (Auto) 0.2, Neut # (Auto) 3.2, Lymph # (Auto) 2.1, [place] # (Auto) 0.4, Eos # (Auto) 0.0, Baso # (Auto) 0.0, Sodium 139, Potassium 3.4 L, Chloride 88 L, Carbon Dioxide 46 H*, Anion Gap 8.4, BUN 12, Creatinine 0.80, Estimated Creat Clear 76, Estimated GFR 73, Est GFR ( Amer) 88, Glucose 108 H, Calcium 8.8, Total Bilirubin 0.3, AST 20, ALT 17, Alkaline Phosphatase 71, Total Protein 7.1, Albumin 3.9, Globulin 3.2, Albumin/Globulin Ratio 1.2 Temp Pulse Resp BP Pulse Ox O2 Del Method O2 Flow Rate 97.9 F 80 13 144/68 H 95 Nasal Cannula 3 04/07/25 08:00 04/07/25 08:00 04/07/25 08:00 04/07/25 08:00 04/07/25 08:00 04/07/25 09:00 04/07/25 09:00 FiO2 45 04/06/25 06:59 Laboratory Results - last 24 hr 04/06/25 06:07: Hgb 9.9 L D 04/06/25 18:18: VBG pH 7.43 H, VBG pCO2 63.6 H, VBG pO2 43.0 H, VBG HCO3 41.5 H, VBG Total CO2 43.4 H, VBG O2 Saturation 81.2 H, VBG Base Excess 17.2 H, VBG Lactic Acid 2.9 H 04/06/25 22:49: Lactate 2.4 H 04/07/25 01:17: Lactate 1.5 04/07/25 05:46: WBC 5.0 D, RBC 3.50 L, Hgb 10.3 L, Hct 33.1 L, MCV 94.6, MCH 29.4, MCHC 31.1 L, RDW 12.8, Plt Count 198, MPV 9.4, Neut % (Auto) 67.8, Lymph % (Auto) 24.0, [place] % (Auto) 7.8, Eos % (Auto) 0.0 L, Baso % (Auto) 0.2, Neut # (Auto) 3.4, Lymph # (Auto) 1.2, [place] # (Auto) 0.4, Eos # (Auto) 0.0, Baso # (Auto) 0.0, Sodium 138, Potassium 3.2 L D, Chloride 88 L, Carbon Dioxide 46 H*, Anion Gap 7.2, BUN 16, Creatinine 0.80, Estimated Creat Clear 77, Estimated GFR 73, Est GFR ( Amer) 88, Glucose 116 H, Calcium 8.9, Magnesium 2.0 D, Total Bilirubin 0.4, AST 20, ALT 17, Alkaline Phosphatase 74, Total Protein 6.8, Albumin 3.7, Globulin 3.1, Albumin/Globulin Ratio 1.2 I & O for Labs for Last 24 Hours: Intake & Output 04/05/25 04/06/25 04/07/25 04/08/25 23:59 23:59 23:59 23:59 Intake Total 1440 / 1440 462 / 712 490 / 490 Output Total 800 / 800 2820 / 2820 2800 / 2800 Balance -800 / -800 -1380 / -1380 -2338 / -2088 490 / 490 Weight 200 lb 182 lb 1.6 oz 183 lb 3.2 oz 181 lb 7 oz Intake & Output 04/04/25 04/05/25 04/06/25 04/07/25 23:59 23:59 23:59 23:59 Intake Total 1440 / 1440 Output Total 800 / 800 2820 / 2820 600 / 600 Balance -800 / -800 -1380 / -1380 -600 / -600 Weight 200 lb 182 lb 1.6 oz 183 lb 3.2 oz Microbiology Reports for the Last 24 Hours: Microbiology 04/05/25 17:00 Anus CRE Surveillance Culture - Final Negative Microbiology 04/05/25 17:00 Anus CRE Surveillance Culture - Final Negative Constitutional: Present mild distress Head: Present normocephalic and atraumatic ENT: Present normal exam, normal oropharynx and mucous membranes moist Neck: Present normal inspection and full ROM Respiratory: Present prolonged expiratory phase, respiratory distress, diminished air movement and able to speak in complete sentences; Absent wheezes Cardiac: Present S1/S2, Tachycardia and radial pulses present GI: Present soft and distention; Absent tenderness or guarding Rectal (female): Present deferred (female): Present deferred Skin: Present intact; Absent cyanosis or jaundice Neuro: Present alert, awake and oriented x 3 Extremities: Present normal inspection; Absent clubbing or cyanosis Psychiatric: Present normal affect and cooperative Assessment and Plan *Assessment and plan (1) Acute and chronic respiratory failure with hypercapnia: Status: Acute Category: Medical Code(s): J96.22 - Acute and chronic respiratory failure with hypercapnia (2) COPD exacerbation: Status: Acute Category: Medical Code(s): J44.1 - Chronic obstructive pulmonary disease with (acute) exacerbation Plan Ms. Cummings is a 63-year-old male greater than [id number] smoking history, exertional dyspnea COPD presented today with worsening respiratory distress and pulmonary was called for further evaluation and management. Afebrile. Hemodynamically stable. Leukopenia, improving. Flu and COVID-19 PCR panel negative. ABG upon admission hypercarbic respiratory failure with pH of 7.24 and pCO2 of 91.3. Subsequent blood gases showed improvement after using noninvasive ventilatory therapy. Chest x-ray upon admission and subsequent chest x-ray did not show any evidence of consolidative changes. No pleural effusions appreciated. Patient has been receiving nebulization therapies steroids and diuretics. On examination respiratory distress. Minimal wheezing noted. Saturating 93% on 3 L nasal oxygen supplementation. Patient using 2 to 3 L oxygen supplementation at baseline. Venous blood gas palpation wean off noninvasive ventilator therapy overnight did not show any worsening hypercarbic respiratory failure. Continue to show chronic hypercarbia. Interval update: 6-minute walk testing is a significant desaturation needing 6 L oxygen supplementation with exertion. Continue to use 3 L nasal cannula at rest. No acute respiratory events overnight. Admits continued improvement in respiratory symptoms. Chest x-ray this morning no acute/new pulm infiltrates as consolidative changes. Plan: Trelegy 100 inhaler along with DuoNebs 4 times daily as needed Prednisone 40 mg daily to complete a total of 5-day course Continue oxygen supplementation to maintain O2 saturation below 90% and above. Will perform 6-minute walk testing again today prior to discharge. No need for initiating noninvasive ventilator therapy upon discharge Volume optimization as per primary team and cardiology #Patient didnot undergo LDCT and PFT that were scheduled previous as an outpatient basis. Will follow-up
--- NOTE | 2025-04-08 09:59 | XR_ITS ---
FINAL REPORT CLINICAL HISTORY: hypoxia COMPARISON: 04/05/2025 FINDINGS: A portable view of the chest was obtained. Cardiac and mediastinal silhouettes are within normal limits. The lungs are clear. There is no pleural effusion or pneumothorax. IMPRESSION: No acute process on this portable exam. Reviewed, Interpreted and Dictated by Rhiannon Lay MD Transcribed by Alma Forrest Authenticated and [facility]
--- NOTE | 2025-04-08 12:45 | EXP.DC.SUM ---
General Admission date:: 04/05/25 HPI HPI HPI: Ms. Cummings is a 64-year-old female with history of COPD, chronic hypoxic respiratory failure on oxygen, chronic pain with chronic opiate use, hypertension, hypothyroid. She presented the ER with 2 to 3-day history of shortness of breath, chest tightness, congestion. Denies fever or chills. No nausea or vomiting. She states she has been feeling more weak, fatigued, short of breath. Patient has not had any abdominal pain. Does struggle with constipation. Currently smokes daily. Denies alcohol or drug use. Reports compliance taking her pain medications and medications for neuropathy. On workup in the ER, initial presentation she was hypoxic on her baseline 2 L necessitating increased to 4 L to sat greater than 90%. Found to bradycardiac with heart rate in the 50s. Initial labs showed severe hypercapnia on blood gas with VBG pH of 7.2 pCO2 in the 90s. White count low at 3.6. Kidney function at baseline. BNP mildly elevated 850. Chest imaging showing cephalization of vasculature and pulmonary congestion/edema in lower lung yousif. Started on BiPAP. Medicine consulted for admission and further management. Evaluated in the ER. Patient falls asleep easily on exam. Tolerating BiPAP. Pulling volumes of 250-400 depending on if she is awake and interactive or sleeping. Exam Data for Last 24 hours Vital signs and Labs for Last 24 Hours: Temp Pulse Resp BP Pulse Ox O2 Del Method O2 Flow Rate 97.9 F 90 16 131/73 96 Nasal Cannula 3 04/08/25 11:59 04/08/25 12:00 04/08/25 11:59 04/08/25 11:59 04/08/25 11:59 04/08/25 11:59 04/08/25 11:59 FiO2 32 04/08/25 06:09 Laboratory Results - last 24 hr 04/07/25 14:50: Lactate 2.9 H 04/07/25 17:32: Lactate 2.7 H 04/08/25 06:04: WBC 5.8, RBC 3.65 L, Hgb 10.6 L, Hct 34.6 L, MCV 94.8, MCH 29.0, MCHC 30.6 L, RDW 12.8, Plt Count 199, MPV 9.2, Neut % (Auto) 56.0, Lymph % (Auto) 35.9, [place] % (Auto) 7.4, Eos % (Auto) 0.3, Baso % (Auto) 0.2, Neut # (Auto) 3.2, Lymph # (Auto) 2.1, [place] # (Auto) 0.4, Eos # (Auto) 0.0, Baso # (Auto) 0.0, Sodium 139, Potassium 3.4 L, Chloride 88 L, Carbon Dioxide 46 H*, Anion Gap 8.4, BUN 12, Creatinine 0.80, Estimated Creat Clear 76, Estimated GFR 73, Est GFR ( Amer) 88, Glucose 108 H, Calcium 8.8, Total Bilirubin 0.3, AST 20, ALT 17, Alkaline Phosphatase 71, Total Protein 7.1, Albumin 3.9, Globulin 3.2, Albumin/Globulin Ratio 1.2 I & O for Last 24 hours: Intake & Output 04/05/25 04/06/25 04/07/25 04/08/25 23:59 23:59 23:59 23:59 Intake Total 1440 / 1440 462 / 712 730 / 730 Output Total 800 / 800 2820 / 2820 2800 / 2800 0 / 0 Balance -800 / -800 -1380 / -1380 -2338 / -2088 730 / 730 Weight 90.718 kg 82.599 kg 83.098 kg 82.299 kg Microbiology Reports for the Last 24 Hours: Microbiology 04/05/25 17:00 Anus CRE Surveillance Culture - Final Negative Results Data Completed and Pending Labs on day of discharge: Labs from last 24 hours 04/08/25 04/07/25 04/07/25 06:04 17:32 14:50 WBC 5.8 RBC 3.65 L Hgb 10.6 L Hct 34.6 L MCV 94.8 MCH 29.0 MCHC 30.6 L RDW 12.8 Plt Count 199 MPV 9.2 Neut % (Auto) 56.0 Lymph % (Auto) 35.9 [place] % (Auto) 7.4 Eos % (Auto) 0.3 Baso % (Auto) 0.2 Neut # (Auto) 3.2 Lymph # (Auto) 2.1 [place] # (Auto) 0.4 Eos # (Auto) 0.0 Baso # (Auto) 0.0 Sodium 139 Potassium 3.4 L Chloride 88 L Carbon Dioxide 46 H* Anion Gap 8.4 BUN 12 Creatinine 0.80 Estimated Creat Clear 76 Estimated GFR 73 Est GFR ( Amer) 88 Glucose 108 H Lactate 2.7 H 2.9 H Calcium 8.8 Total Bilirubin 0.3 AST 20 ALT 17 Alkaline Phosphatase 71 Total Protein 7.1 Albumin 3.9 Globulin 3.2 Albumin/Globulin Ratio 1.2 DS: Diagnosis Discharge Diagnosis (1) Acute and chronic respiratory failure with hypercapnia: Status: Acute Code(s): J96.22 - Acute and chronic respiratory failure with hypercapnia (2) COPD exacerbation: Status: Acute Code(s): J44.1 - Chronic obstructive pulmonary disease with (acute) exacerbation Meds Home Medications and Allergies Home Medications ?Medication ?Instructions ?Recorded ?Confirmed ?Type aspirin 81 mg chewable tablet 81 mg PO DAILY #90 tabs 04/30/24 04/05/25 Rx buprenorphine 8 mg-naloxone 2 mg 1 tab sublingual DAILY 05/01/24 04/05/25 History sublingual tablet gabapentin 800 mg tablet 800 mg PO TID #90 tabs 02/07/25 04/05/25 Rx bisoprolol fumarate 10 mg tablet 10 mg PO DAILY #30 tabs 02/11/25 04/05/25 Rx Held on 04/08/25. Instructions: Resume on 04/15/25. Your blood pressures were normal without this medication. Please follow-up with your PCP to discuss restarting this medication. nicotine 14 mg/24 hr daily 1 patch transdermal DAILY #28 ea 03/13/25 04/06/25 Rx transdermal patch albuterol sulfate 90 mcg/actuation 2 puff inhalation Q6HP PRN 04/06/25 04/06/25 History aerosol inhaler (Ventolin HFA) Shortness Of Breath amlodipine 5 mg tablet 5 mg PO DAILY 04/06/25 04/06/25 History hydroxyzine HCl 25 mg tablet 25 mg PO QIDP PRN Anxiety 04/06/25 04/06/25 History fluticasone fur. 100 mcg-umeclid 1 inh inhalation DAILY #60 ea 04/08/25 Rx 62.5 mcg-vilant 25 mcg inhalat.powder (Trelegy Ellipta) furosemide 40 mg tablet 40 mg PO DAILY Leg swelling 30 04/08/25 Rx days #30 tabs ipratropium 0.5 mg-albuterol 3 mg 3 ml inhalation Q6HP PRN Shortness 04/08/25 Rx (2.5 mg base)/3 mL nebulization Of Breath 30 days #90 mL soln nicotine 21 mg/24 hr daily 21 mg transdermal DAILYP PRN 04/08/25 Rx transdermal patch Nicotine Cravings 30 days #28 ea prednisone 20 mg tablet 40 mg (2 x 20 mg) PO DAILY 2 days 04/08/25 Rx #4 tabs New Prescriptions to Start Prescriptions: [id number] [Trelegy Ellipta] Keena,Akin furosemide Keena,Akin ipratropium-albuterol Keena,Akin nicotine Keena,Akin prednisone Keena,Akin Allergies Allergy/AdvReac Type Severity Reaction Status Date / Time No Known Allergies Allergy Verified 03/13/25 10:11 Discharge Plan Disposition Patient Disposition: Home, Self-Care Condition: Fair Discharge Order Discharge Orders: Discharge Order (Routine); Ordered 04/08/25 Ordered By: Akin Brink Follow up Plan Follow up with: Jamison Roberts MD [Staff Physician, Family Practice] - 04/14/25 10:40 am Prescriptions/Medication Reconciliation: New Trelegy Ellipta 100-62.5-25 mcg Blister With Device 1 inh inhalation DAILY Qty: 60 0RF ipratropium-albuterol 0.5 mg-3 mg(2.5 mg base)/3 mL Solution For Nebulization 3 ml inhalation Q6HP PRN (Reason: Shortness Of Breath) 30 Days Qty: 90 0RF prednisone 20 mg Tablet 40 mg PO DAILY 2 Days Qty: 4 0RF nicotine 21 mg/24 hr Patch 24 Hour 21 mg transdermal DAILYP PRN (Reason: Nicotine Cravings) 30 Days Qty: 28 0RF Continued nicotine 14 mg/24 hr patch 24 hour 1 patch transdermal DAILY Qty: 28 0RF aspirin 81 mg tablet,chewable 81 mg PO DAILY Qty: 90 3RF gabapentin 800 mg tablet 800 mg PO TID Qty: 90 2RF buprenorphine-naloxone 8-2 mg Tablet, Sublingual 1 tab SUBLINGUAL DAILY amlodipine 5 mg tablet 5 mg PO DAILY Patient Comments: take 1 tablet(5 mg) orally daily hydroxyzine HCl 25 mg tablet 25 mg PO QIDP PRN (Reason: Anxiety) Patient Comments: TAKE ONE TABLET BY MOUTH FOUR TIMES DAILY NEEDED FOR ANXIETY albuterol sulfate [Ventolin HFA] 90 mcg/actuation HFA aerosol inhaler 2 puff INHALATION Q6HP PRN (Reason: Shortness Of Breath) Patient Comments: for Copd; INHALE TWO PUFFS EVERY 6 HOURS NEEDED SHORTNESS OF BREATH Changed furosemide 40 mg tablet 40 mg PO DAILY 30 Days Qty: 30 0RF Rx Instructions: TAKE ONE TABLET BY MOUTH DAILY NEEDED FOR LEG SWELLING Held bisoprolol fumarate 10 mg tablet 10 mg PO DAILY Qty: 30 2RF Hold Instructions: Resume on 04/15/25. Your blood pressures were normal without this medication. Please follow-up with your PCP to discuss restarting this medication. Problem Reconciliation Problems Reviewed?: Yes Patient Discharge Instructions Patient Instructions: DI for Respiratory Failure, Stop Light COPD Print Language: Turkmen Providers Primary Care Provider: Provider,Referral Admit Provider: Dennis Angel Attending Provider: Dennis Angel
--- NOTE | 2025-04-08 13:38 | PC.NURSE ---
patient walked 250 ft during walk test on 3 LNC, O2 sat 90%-93%.
[2025-04-08] MEDS: GABAPENTIN 800MG TABLET 800 MG PO (13:48)
[2025-04-08 15:02] LABS: VBG HCO3 32.1 mmol/L (23-30); VBG PH 7.38 mmol/L (7.31-7.41); VBG PO2 60.7 mmol/L (28-40)
[2025-04-08 15:06] LABS: Lactate Venous 2.8 mmol/L (0.4-2.0); VBG PCO2 55.3 mmol/L (35-51)
[2025-04-08] MEDS: FLUTICASONE PROP 50MCG NASAL SPRAY 16GM 2 SPRAY NS (16:32)
[2025-04-08 19:05] LABS: Reflex Lactic Add Lactic Reflex
--- NOTE | 2025-04-09 10:46 | SW/DCPLANNER ---
Spoke with patient on the phone. patient stated that she is doing good. Patient stated that she is aware of her upcoming appointments. Patient stated that she was able to get her medicine. Patient stated that she has no concerns or questions at this time. Ashley Rios
== END 2025-04-08 16:53 | disposition home or self-care (01) | DRG 189 ==
LOC: ER 15:37 → ICU 15:49 → 2ND 04-07 15:06
PROVIDERS: Internal Medicine Pulmonary Disease; Physician Assistant; Admitting Provider Internal Medicine Adolescent Medicine; Emergency Provider Student in an Organized Health Care Education/Training Program; Visit Provider Internal Medicine Adolescent Medicine
DX: J96.22 Acute and chronic respiratory failure with hypercapnia (principal); J44.1 Chronic obstructive pulmonary disease with (acute) exacerbation; J96.21 Acute and chronic respiratory failure with hypoxia; E03.9 Hypothyroidism, unspecified; I10 Essential (primary) hypertension; E66.09 Other obesity due to excess calories; E66.811 Obesity, class 1; I25.10 Atherosclerotic heart disease of native coronary artery without angina pectoris; G62.9 Polyneuropathy, unspecified; D72.819 Decreased white blood cell count, unspecified; G47.33 Obstructive sleep apnea (adult) (pediatric); G89.29 Other chronic pain; F11.90 Opioid use, unspecified, uncomplicated; F17.210 Nicotine dependence, cigarettes, uncomplicated; R00.1 Bradycardia, unspecified; Z68.35 Body mass index [BMI] 35.0-35.9, adult; Z95.5 Presence of coronary angioplasty implant and graft; Z99.81 Dependence on supplemental oxygen; Z79.82 Long term (current) use of aspirin; Z79.899 Other long term (current) drug therapy
CPT/HCPCS: 36415; 36600; 51798; 71045; 80053; 81001; 82803; 83605; 83690; 83735; 83880; 84484; 85025; 85378; 85610; 87081; 87636; 93005; 93306; 94618; 94640; 94761; 99285; J0574; J1650; J1939; J2470; J2919

== ENCOUNTER 2025-05-31 16:46 | Emergency (ER) | payer MEDICAID, SELFPAY ==
[2025-05-31] VITALS (7 sets, daily range): BP systolic 131–162; BP diastolic 49–91; PULSE 52–80; RESP 16–20; TEMP 36.6–36.9; O2SAT 95–99; BMI 31.8
--- OUTSIDE RECORDS SUMMARY | 2025-05-31 17:00 | XMS_ITS | Clinical Summary ---
Author Organization [facility] Address [address] [place] [address] Care Team Providers Care Vamp Strap Ironer Name Role Phone Momo Galarza MD Primary Care Provider Allergies No known active allergies Medications gabapentin [...] Release to patient: Routine Release Care Teams Vamp Strap Ironer Relationship Specialty Start Date End Date Momo Galarza MD [address] [place] [address] PCP - General Emergency Medicine 06/23/22
[2025-05-31 17:04] LABS: Coronavirus 19, PCR Not Detected (NotDetected); Influenza A, PCR Not Detected (NotDetected); Influenza B, PCR Not Detected (NotDetected)
--- NOTE | 2025-05-31 17:04 | ED_ITS ---
Discharge Plan Disposition Patient Disposition: Home, Self-Care Condition: Good Prescriptions Prescriptions: New prednisone 20 mg tablet 40 mg PO DAILY 5 Days Qty: 30 0RF azithromycin 250 mg tablet 250 mg PO DAILY 5 Days Qty: 5 0RF Rx Instructions: start on day 2 of therapy No Action bisoprolol fumarate 10 mg tablet 10 mg PO DAILY Qty: 30 2RF furosemide 40 mg tablet 40 mg PO DAILY 30 Days Qty: 30 0RF Rx Instructions: TAKE ONE TABLET BY MOUTH DAILY NEEDED FOR LEG SWELLING amoxicillin-pot clavulanate 875-125 mg tablet 1 tab PO BID Qty: 14 0RF potassium chloride [K-Tab] 20 mEq tablet extended release 20 meq PO DAILY Qty: 30 2RF gabapentin 800 mg tablet See Rx Instructions .ROUTE .COMPLEX Qty: 90 0RF Dose Instruction: TAKE ONE TABLET BY MOUTH THREE TIMES DAILY Rx Instructions: TAKE ONE TABLET BY MOUTH THREE TIMES DAILY albuterol sulfate [Ventolin HFA] 90 mcg/actuation HFA aerosol inhaler 2 puff INHALATION Q6HP PRN (Reason: Shortness Of Breath) Qty: 8.5 5RF Patient Comments: for Copd; INHALE TWO PUFFS EVERY 6 HOURS NEEDED SHORTNESS OF BREATH aspirin 81 mg tablet,chewable See Rx Instructions .ROUTE .COMPLEX Qty: 90 3RF Dose Instruction: CHEW AND SWALLOW 1 TABLET(81 mg) orally daily Rx Instructions: CHEW AND SWALLOW 1 TABLET(81 mg) orally daily buprenorphine-naloxone 8-2 mg Tablet, Sublingual 1 tab SUBLINGUAL DAILY hydroxyzine HCl 25 mg tablet 25 mg PO QIDP PRN (Reason: Anxiety) Patient Comments: TAKE ONE TABLET BY MOUTH FOUR TIMES DAILY NEEDED FOR ANXIETY Trelegy Ellipta 100-62.5-25 mcg Blister With Device 1 inh inhalation DAILY Qty: 60 0RF ipratropium-albuterol 0.5 mg-3 mg(2.5 mg base)/3 mL Solution For Nebulization 3 ml inhalation Q6HP PRN (Reason: Shortness Of Breath) 30 Days Qty: 90 0RF nicotine 21 mg/24 hr Patch 24 Hour 21 mg transdermal DAILYP PRN (Reason: Nicotine Cravings) 30 Days Qty: 28 0RF Referrals Follow up/Referrals: Jamison Roberts MD [Primary Care Provider, Family Practice] - See instructions Activity Restrictions/Add. Instructions Additional Instructions/Restrictions: Take the steroids as prescribed for 5 days. Take the azithromycin as prescribed for 5 days. Return to the emergency department for any acute or worsening shortness of breath. Take your Lasix as prescribed for the next 3 days as well do not miss any doses. Follow-up with your regular doctor. Clinical Impressions Clinical Impression: COPD exacerbation Print Language Print Language: [place] Irish Discharge ED Provider: Myriam Jacob General Adult HPI General Chief complaint: Shortness of Breath/Dyspnea Stated complaint: SOA,swelling in feet and legs, hurts in back Time Seen by Provider: 05/31/25 17:03 Mode of Arrival: Ambulatory Source of Information: Patient Description of Symptoms (Recalled from ER Triage Doc. by RN): patitorey rpesents for shortness of breath, and swelling in both her legs. the patient is currently wearing her home oxygen which is 3Lnc for COPD. she has CHF and states she been taling her diuretics as prescribed but hasnt taken any today. History of Present Illness HPI narrative: Patient is a 64-year-old female with a past medical history of COPD and heart failure who presented to the emergency department with swelling in her legs as well as shortness of breath. Patient states that she has been feeling more short of breath over the last 3 days. Patient denies any chest pain. Patient denies any upper respiratory symptoms. Patient denies any cough. Patient states that she is supposed to take Lasix daily but did not take any today and intermittently will miss her doses. Patient states that she takes a Advair inhaler and intermittently will do nebulizers if needed. Patient states that she had a subjective fever but did not have a documented temperature at home. Patient denies any abdominal pain nausea vomiting or diarrhea. Patient denies any other associated symptoms at this time. Related Data Home Medications ?Medication ?Instructions ?Recorded ?Confirmed buprenorphine 8 mg-naloxone 2 mg 1 tab sublingual LICO Y 05/01/24 04/14/25 sublingual tablet hydroxyzine HCl 25 mg tablet 25 mg PO QIDP PRN Anxiety 04/06/25 04/14/25 Previous Rx's ?Medication ?Instructions ?Recorded fluticasone fur. 100 mcg-umeclid 1 inh inhalation LICO Y #60 ea 04/08/25 62.5 mcg-vilant 25 mcg inhalat.powder (Trelegy Ellipta) ipratropium 0.5 mg-albuterol 3 mg 3 ml inhalation Q6HP PRN Shortness 04/08/25 (2.5 mg base)/3 mL nebulization Of Breath 30 days #90 mL soln nicotine 21 mg/24 hr daily 21 mg transdermal DAILYP ND N 04/08/25 transdermal patch Nicotine Cravings 30 days #2 8 ea gabapentin 800 mg tablet See Rx Instructions .Route 1 .COMPLEX #90 tabs amoxicillin 875 mg-potassium 1 tab PO BID #14 tabs clavulanate 125 mg tablet bisoprolol fumarate 10 mg tablet 10 mg PO DAILY #30 ta bs 04/14/25 furosemide 40 mg tablet 40 mg PO DAILY Leg swelling 30 04/14/25 days #30 tabs potassium chloride 20 mEq 20 meq PO DAILY #30 tabs tablet,extended release (K-Tab) albuterol sulfate 90 mcg/actuation 2 puff inhalation Q 6HP PRN 04/25/25 aerosol inhaler (Ventolin HFA) Shortness Of Breath #8. 5 grams aspirin 81 mg chewable tablet See Rx Instructions .Rou te 05/08/25 .COMPLEX #90 tabs azithromycin 250 mg tablet 250 mg PO DAILY 5 days #5 t abs 05/31/25 prednisone 20 mg tablet 40 mg (2 x 20 mg) PO DAILY 5 days 05/31/25 #30 tabs Allergies Allergy/AdvReac Type Severity Reaction Status Date / Time No Known Allergies Allergy Verified 04/14/25 10:50 [facility] Disclaimer: The information contained in this section may have been updated after the patient was seen, as this information can be updated by other users. Medical History HTN (hypertension) Peripheral neuropathy Opioid use disorder Cigarette smoker greater than 60 years, continues to smoke Loud snoring Encounter for screening for malignant neoplasm of lung History of smoking 30 or more pack years Cervical cancer screening Current every day vaping Acute exacerbation of chronic obstructive pulmonary disease Acute exacerbation of chronic obstructive pulmonary disease Chronic dyspnea Hypoxemia Vitamin D deficiency Degenerative joint disease of knee Lumbar radicular pain Tobacco use Dyspnea NAY (obstructive sleep apnea) HLD (hyperlipidemia) CAD (coronary artery disease) Bilateral lower extremity edema Anxiety COPD (chronic obstructive pulmonary disease) Edema Abnormal result of cardiovascular function study Chronic cough Allergies History of cataract History of narcotic addiction Arthritis Anxiety GERD (gastroesophageal reflux disease) COPD (chronic obstructive pulmonary disease) Surgical History History of heart artery stent History of cataract surgery S/P bilateral breast lumpectomy S/P carpal tunnel release right Family History Mother Diabetes Sister Diabetes Mother Hypertension Sister Hypertension Mother Coronary artery disease Sister Breast cancer Social History Smoking Status: Light tobacco smoker tobacco type: e-cigarettes alcohol intake: never substance use type: former substance user, sedatives and painkillers current occupational status: unemployed Travel in the last 8 weeks?: None caffeine: Yes Have you lived/traveled outside [place] in past 30 days?: No Contact w/someone who lives/traveled outside [place] past 30 days?: No Exposure to someone with infectious disease in past 14 days?: No Do you have a fever (greater than 100.4 F or 38 C)?: No Have you tested positive for COVID-19?: No Exposed to someone with COVID-19 in past 14 days?: No Do you have a sore throat?: No Do you have a cough?: No Do you have any weakness?: No Do you have any diarrhea?: No Are you experiencing any unusual bleeding?: No Do you have any muscle aches/pain?: No Do you have any abdominal pain?: No Are you experiencing loss of taste or smell?: No Other Medical History Have you received the Flu Vaccine for this season: No Have you received the Pneumonia Vaccine: No ROS Obtained: Yes All systems reviewed & no additional complaints except as documented and Yes Systems reviewed as appropriate & no additional complaints except as documented Physical Exam General General appearance: alert and in no apparent distress Head Head exam: atraumatic, normocephalic and normal inspection Eye Eye exam: Present normal appearance, PERRL and EOMI; Absent scleral icterus ENT ENT exam: Present normal exam and normal external ear exam Neck Neck exam: Present normal inspection and full ROM Chest Chest inspection: Present normal inspection and symmetric chest wall rise Respiratory Respiratory exam: Present other (decreased breath sounds bilaterally, mild crackles, no wheezing); Absent respiratory distress or wheezes Cardiovascular Cardiovascular exam: Present regular rate, normal rhythm and normal heart sounds Abdominal Exam Abdominal exam: Present soft and distention; Absent tenderness, guarding or rebound Extremities Exam Extremities exam: Present normal inspection, full ROM and other (1+ edema in the BLE) Back Exam Back exam: Present normal inspection and full ROM Neurological Exam Neurological exam: Present alert and oriented X3 Psychiatric Psychiatric exam: Present normal affect and normal mood Skin Skin exam: Present warm and dry Medical Decision Making Medical Records Medical records reviewed: Yes I reviewed the patient's medical records. Screening: Per USPSTF and CDC recommendations, given the prevalence of disease in our region, it is our hospital?s policy to screen for HIV and viral Hepatitis for all patients aged 18 and over and those with ongoing risk factors. Allan Inquiry Pt receiving controlled substance: No Vital Signs: 05/31/25 16:48 05/31/25 17:07 05/31/25 17:11 Temperature 98.4 F Temperature Source Oral Pulse Rate 54 L Pulse Rate [Right Radial] 57 L Respiratory Rate 20 Blood Pressure 131/61 Blood Pressure [Right Arm] 154/49 H Blood Pressure Mean [Right Arm] 84 Blood Pressure Source Blood Pressure Source [Right Arm] Automatic Cuff Blood Pressure Position Blood Pressure Position [Right Arm] Sitting 02 Sat by Pulse Oximetry 96 95 98 Oxygen Delivery Method Nasal Cannula Nasal Cannula Oxygen Flow Rate (LPM) 3 3 05/31/25 17:31 05/31/25 18:01 05/31/25 18:31 Temperature Temperature Source Pulse Rate 52 L 62 63 Pulse Rate [Right Radial] Respiratory Rate Blood Pressure 144/74 H 162/91 H 137/74 Blood Pressure [Right Arm] Blood Pressure Mean [Right Arm] Blood Pressure Source Blood Pressure Source [Right Arm] Blood Pressure Position Blood Pressure Position [Right Arm] 02 Sat by Pulse Oximetry 96 95 99 Oxygen Delivery Method Nasal Cannula Nasal Cannula Oxygen Flow Rate (LPM) 3 3 05/31/25 20:23 Temperature 97.9 F Temperature Source Oral Pulse Rate 80 Pulse Rate [Right Radial] Respiratory Rate 16 Blood Pressure 132/74 Blood Pressure [Right Arm] Blood Pressure Mean [Right Arm] Blood Pressure Source Automatic Cuff Blood Pressure Source [Right Arm] Blood Pressure Position Supine Blood Pressure Position [Right Arm] 02 Sat by Pulse Oximetry Oxygen Delivery Method Nasal Cannula Oxygen Flow Rate (LPM) 3 Lab Data Lab results reviewed: Yes I reviewed the patient's lab results. Lab Results 05/31/25 16:53: SARS-CoV-2 (PCR) Not detected, Influenza A Untype (PCR) Not detected, Influenza Type B (PCR) Not detected 05/31/25 16:54: Urine Color Yellow, Urine Appearance Clear, Urine pH 6.5, Ur Specific [place] <= 1.005, Urine Protein Negative, Urine Glucose (UA) Negative, Urine Ketones Negative, Urine Blood Trace-i, Urine Nitrate Negative, Urine Bilirubin Negative, Urine Urobilinogen 0.2, Ur Leukocyte Esterase Trace, Urine RBC None, Urine WBC 3-5, Ur Squamous Epith Cells 3-5, Urine Bacteria Trace 05/31/25 17:50: VBG pH 7.28 L, VBG pCO2 86.6 H, VBG pO2 65.7 H, VBG HCO3 39.8 H, VBG Total CO2 42.4 H, VBG O2 Saturation 91.9 H, VBG Base Excess 13.0 H, VBG Lactic Acid 0.7 05/31/25 19:23: VBG pH 7.35, VBG pCO2 70.1 H, VBG pO2 60.7 H, VBG HCO3 38.1 H, V BG Total CO2 40.2 H, VBG O2 Saturation 89.7 H, VBG Base Excess 12.5 H, VBG Lactic Acid 1.2 05/31/25 : WBC 5.1, RBC 3.96 L, Hgb 11.4 L, Hct 37.8, MCV 95.5, MCH 28.8, MCHC 30.2 L, RDW 11.8, Plt Count 181, MPV 9.6, Neut % (Auto) 65.2, Lymph % (Auto) 28.1, [place] % (Auto) 5.1, Eos % (Auto) 1.4, Baso % (Auto) 0.2, Neut # (Auto) 3.3, Lymph # (Auto) 1.4, [place] # (Auto) 0.3, Eos # (Auto) 0.1, Baso # (Auto) 0.0, Sodium 143, Potassium 4.2, Chloride 92 L, Carbon Dioxide 40 H, Anion Gap 15.2 H, BUN 8, Creatinine 0.80, Estimated Creat Clear 75, Estimated GFR 73, Est GFR ( Amer) 88, Glucose 109 H, Calcium 8.9, Total Bilirubin 0.6, AST 36, ALT 14, Alkaline Phosphatase 60, Troponin I < 0.01, NT-Pro-B Natriuret Pep 442 H, Total Protein 8.2, Albumin 4.3, Globulin 3.9 H, Albumin/Globulin Ratio 1.1 05/31/25 Unknown 05/31/25 Unknown Orders (Tests/Meds): ED MEDICATIONS Discontinued Medications Generic Name Dose Route Start Last Admin Trade Name Freq PRN Reason Stop Dose Admin Albuterol Sulfate 20 mg 05/31/25 19:01 05/31/25 20:06 Albuterol 0.083% 2.5 Mg/3 Ml [facility] 05/31/25 19:02 Not Given ONCE ONE Albuterol/Ipratropium 9 ml 05/31/25 17:13 05/31/25 17:33 Ipratropium/Albuterol 3 Ml [facility] 05/31/25 17:14 9 ml ONCE ONE Administration Furosemide 40 mg 05/31/25 17:13 05/31/25 17:33 Furosemide 40mg/4ml Vial IV 05/31/25 17:14 40 mg ONCE ONE Administration Magnesium Sulfate 2 gm in 50 mls @ 50 mls/hr 05/31/25 18:06 05/31/25 19:38 Magnesium Sulfate 2gm/50ml Premix IV 05/31/25 19:05 Infused ONCE ONE Infusion Methylprednisolone Sodium Succinate 125 mg 05/31/25 17:13 05/31/25 17:34 Methylprednisolone Sod Succ 125mg Vial IV 05/31/25 17:14 125 mg ONCE ONE Administration ORDERS Category Date Time Status CXR --portable [XR chest portable] Stat Exams 05/31/25 17:13 Completed BNP [NT Pro Brain Natriuretic Pep.] Stat Lab 05/31/25 Completed CBC w/Auto Diff [Complete Blood Count Auto Diff] Stat Lab 05/31/25 Completed CMP [Comprehensive Metabolic Panel] Stat Lab 05/31/25 Completed Rapid PCR Covid and Flu A/B Stat Lab 05/31/25 16:53 Completed Trop I [Troponin I] Stat Lab 05/31/25 Completed UA [Urinalysis and Microscopic] Stat Lab 05/31/25 16:54 Completed VBG [Venous Blood Gas] Stat RT 05/31/25 17:50 Completed VBG [Venous Blood Gas] Stat RT 05/31/25 19:23 Completed Medical Decision Narrative: Patient is a 64-year-old female with a past medical history of COPD and heart failure who presented to the emergency department with shortness of breath for the last 3 to 4 days as well as lower extremity swelling. On arrival, patient was hemodynamically stable with unremarkable Eitel signs Differential includes but not limited to: COPD exacerbation, heart failure exacerbation, ACS/[place], pneumonia, viral syndrome, amongst others. Workup included labs, chest x-ray and patient was given her home IV Lasix as well as treatments for COPD Patient's labs were reviewed and interpreted by myself: CBC showed no leukocytosis, hemoglobin was stable. VBG showed mild acidosis of 7.28 with hypercapnia of 80. Initial troponin less than 0.01. BNP 442. UA showed no evidence of infection. Chest x-ray was reviewed and interpreted by myself and showed no acute focal consolidation, pneumothorax, pleural effusion or other acute cardiopulmonary process. Patient was given 40 of IV Lasix here in the emergency department patient was given Solu-Medrol and DuoNebs. On repeat evaluation, patient reported significant improvement in her shortness of breath. I offered patient continuous albuterol but patient felt that she was significantly improved. Was on her baseline oxygen and was appropriate with ambulation therefore I felt the patient was stable and appropriate for discharge. Patient was sent with 5 days of azithromycin and prednisone and patient was recommended to take her Lasix as prescribed. Patient was recommended to come back to the emergency department for any acute or worsening symptoms. Critical Care Critical Care Time Critical Care Time: No
[2025-05-31 17:06] LABS: Microscopic, Urine URINE MICROSCOPIC (MICROSCOPIC)
[2025-05-31 17:09] LABS: Bilirubin,Urine Negative (Negative); Color,Urine YELLOW (Yellow); Glucose,Urine (UA) Negative (Negative); Ketones,Urine Negative (Negative); Leukocyte Esterase,Urine TRACE (Negative); PH,Urine 6.5 (5.0-8.5); Protein,Urine Negative (Negative); Specific Gravity, Urine <= 1.005 (1.005-1.030); Urobilinogen,Urine 0.2 EU/dl (0.2)
--- NOTE | 2025-05-31 17:13 | ECG_ITS ---
APPROVED REPORT Exam: Resting ECG HR:53 bpm ECG Measurements Heart Rate 53 AXES MO 150 P 48 QRSd 86 QRS 52 QT 416 T 45 QTc 398 Conclusion SINUS BRADYCARDIA BORDERLINE ECG UNCONFIRMED REPORT Electronically signed by : FADI GILL, 06/01/2025 23:03:52
--- NOTE | 2025-05-31 17:13 | XR_ITS ---
PROCEDURE INFORMATION: Exam: XR Chest Exam date and time: 05/31/2025 5:20 PM Age: 64 years old Clinical indication: Shortness of breath TECHNIQUE: Imaging protocol: Radiologic exam of the chest. Views: 1 view. COMPARISON: CR XR CHEST PORTABLE 04/08/2025 10:36 AM FINDINGS: Lungs: Mild interstitial prominence. No focal consolidation or other acute appearing pulmonary opacity. No CHF. Lucent appearance of the upper lungs more likely corresponds to underlying COPD change. Findings appear unchanged. Pleural spaces: Unremarkable. No pleural effusion. No pneumothorax. Heart/Mediastinum: Heart size is upper limits for normal. Mediastinal contours are smooth. Vasculature: Minimal atherosclerotic plaque of the aortic arch. Bones/joints: No acute osseous abnormality identified. IMPRESSION: No acute findings within the chest.
[2025-05-31 17:23] LABS: Albumin Level 4.3 g/dl (3.5-5.0); Chloride 92 mmol/L (98-107); Potassium 4.2 mmoL/L (3.5-5.1); Sodium 143 mmol/L (136-145)
[2025-05-31 17:24] LABS: Hematocrit 37.8 % (37.0-47.0); Hemoglobin 11.4 g/dL (12.2-16.2); Immature Granulocytes % 0 %; Mean Corpuscular HGB Conc 30.2 g/dL (31.8-35.4); Mean Corpuscular Hemoglobin 28.8 pg (27.0-31.2); Mean Corpuscular Volume 95.5 fl (81-99); Nucleated Red Blood Cells % 0 %; Platelet Count 181 K/mm3 (142-424); Red Blood Count 3.96 M/mm3 (4.20-5.40); Red Cell Distribution Width-SD 41.4 fL; White Blood Count 5.1 K/mm3 (4.8-10.8)
[2025-05-31 17:26] LABS: Alanine Aminotransferase 14 U/L (12-78); Albumin/Globulin Ratio 1.1 (1.1-1.8); Alkaline Phosphatase 60 U/L (38-126); Aspartate Amino Transferase 36 U/L (14-36); Bilirubin,Total 0.6 mg/dl (0.2-1.3); Blood Urea Nitrogen 8 mg/dl (7-17); Calcium 8.9 mg/dl (8.4-10.2); Creatinine Clearance Estimated 75 mL/min (50-200); Creatinine,Serum 0.80 mg/dl (0.52-1.04); Estimated Glomerular Filt Rate 73 ml/min (>60); GFR (African American) 88 ML/MIN (>60); Globulin 3.9 g/dL (1.3-3.2); Glucose 109 mg/dl (74-100); Total Protein,Serum 8.2 g/dl (6.3-8.2)
[2025-05-31 17:30] LABS: Anion Gap 15.2 mEq/L (5-15)
[2025-05-31 17:33] LABS: Bacteria,Urine Trace /lpf
[2025-05-31] MEDS: IPRATROPIUM/ALBUTEROL 3 ML NEB 9 ML IH (17:33)
[2025-05-31] MEDS: FUROSEMIDE 40MG/4ML VIAL 40 MG IV (17:33)
[2025-05-31] MEDS: METHYLPREDNISOLONE SOD SUCC 125MG VIAL 125 MG IV (17:34)
[2025-05-31 17:35] LABS: NT Pro Brain Natriuretic Pep. 442 pg/mL (0-125)
[2025-05-31 17:38] LABS: Troponin I < 0.01 ng/ml (0.00-0.034)
[2025-05-31 17:45] LABS: Carbon Dioxide 40 mmol/L (22.0-30.0)
[2025-05-31 18:01] LABS: Lactate Venous 0.7 mmol/L (0.4-2.0); VBG HCO3 39.8 mmol/L (23-30); VBG PH 7.28 mmol/L (7.31-7.41); VBG PO2 65.7 mmol/L (28-40)
[2025-05-31 18:02] LABS: VBG PCO2 86.6 mmol/L (35-51)
[2025-05-31] MEDS: MAGNESIUM SULFATE IN WATER 2 GM/50 ML PIGGYBACK IV (18:25)
[2025-05-31 19:40] LABS: Lactate Venous 1.2 mmol/L (0.4-2.0); VBG HCO3 38.1 mmol/L (23-30); VBG PH 7.35 mmol/L (7.31-7.41); VBG PO2 60.7 mmol/L (28-40)
[2025-05-31 19:47] LABS: VBG PCO2 70.1 mmol/L (35-51)
--- NOTE | 2025-05-31 20:16 | PC.NURSE ---
WAITING FOR SON TO GET HERE; HAS DISCHARGE PAPERS AND IV REMOVED
== END 2025-05-31 20:23 | disposition home or self-care (01) ==
PROVIDERS: Emergency Provider Student in an Organized Health Care Education/Training Program; PCP Family Medicine
DX: J44.1 Chronic obstructive pulmonary disease with (acute) exacerbation (principal); E87.29 Other acidosis; F17.210 Nicotine dependence, cigarettes, uncomplicated; R00.1 Bradycardia, unspecified; I11.0 Hypertensive heart disease with heart failure; I50.9 Heart failure, unspecified; E78.5 Hyperlipidemia, unspecified
CPT/HCPCS: 71045; 80053; 81001; 82803; 83880; 84484; 85025; 87636; 93005; 96365; 96375; 99285; J1938; J2919; J3475